=== PATIENT | female | born 1970 | race Caucasian/White ===

== ENCOUNTER 2019-05-06 10:05 | Outpatient (CLI) | payer MEDICAID | END 2019-05-06 10:06 | disposition home or self-care (01) | LOC: LAB 10:05 | PROVIDERS: ATTEND Internal Medicine Gastroenterology | DX: I48.0 Paroxysmal atrial fibrillation (principal) | CPT/HCPCS: 85610 ==

== ENCOUNTER 2019-05-14 21:10 | Emergency (ER) | payer MEDICAID ==
[2019-05-14] MEDS ORDERED: LIDOCAINE 1% 2 ML VIAL MC ONE (21:48)
[2019-05-14] MEDS ORDERED: cefTRIAXone 1 GM VIAL IM STA (21:48)
[2019-05-14] MEDS ORDERED: DEXAMETHASONE 10 MG/ML VIAL PO STA (21:48)
[2019-05-14] MEDS ORDERED: CHERRY SYRUP 10 ML UDC PO ONE (21:48)
--- NOTE | 2019-05-14 21:50 | ED Physician Documentation ---
PD HPI HEENT - Stated complaint Stated Complaint: SINUS ISSUES/BLOODY EARS - Chief complaint Chief Complaint: Heent - History obtained from History obtained from: Patient - History of Present Illness Timing - onset: How many days ago (4) Timing - duration: Days (4) Timing - details: Gradual onset, Still present Location: Right ear, Left ear, Sinuses, Nose Worsens: Swalllowing, Noise Associated symptoms: Fever, Congestion, Rhinorrhea, Headache, Cough Similar symptoms before: Has not had sx before Recently seen: Not recently seen - Additional information Additional information: 49-year-old female on Coumadin for antiphospholipid antibody syndrome has developed congestion cough ear pain ear drainage and chills beginning about 4 days ago. Review of Systems Constitutional: reports: Fever, Chills, Fatigue, Sweats Eyes: denies: Decreased vision Ears: reports: Ear pain, Drainage/discharge, Tinnitus/ringing Nose: reports: Rhinorrhea / runny nose, Congestion, Sinus pressure / pain Throat: denies: Sore throat Cardiac: denies: Chest pain / pressure, Palpitations Respiratory: reports: Cough. denies: Dyspnea GI: denies: Nausea, Vomiting : denies: Dysuria, Frequency Skin: denies: Rash Musculoskeletal: denies: Neck pain, Back pain, Extremity pain Neurologic: denies: Generalized weakness, Focal weakness, Numbness PD PAST MEDICAL HISTORY - Past Medical History Past Medical History: Yes Cardiovascular: Hypertension Neuro: CVA HEENT: Glaucoma Psych: Depression Musculoskeletal: Other Other Past Medical History: CVAx12 since 2000, antiphospholipid syndrome, DJD, arthritis, - Past Surgical History Past Surgical History: Yes General: Cholecystectomy Ortho: Other - Present Medications Home Medications: Ambulatory Orders Medication Instructions Recorded Confirmed Aspirin [Aspirin EC] 81 mg PO DAILY 04/24/19 04/24/19 Brimonidine Tartrate/Timolol 15 ml OP BID 04/24/19 04/24/19 [Combigan 0.2%-0.5% Eye Drops] Fluoxetine HCl [Prozac] 40 mg PO DAILY 04/24/19 04/24/19 Gabapentin [Neurontin] 800 mg PO TID 04/24/19 04/24/19 Labetalol [Trandate] 300 mg PO TID 04/24/19 04/24/19 RX: Cyclobenzaprine HCl 5 mg PO TID 04/24/19 04/24/19 RX: Lisinopril 20 mg PO DAILY 04/24/19 04/24/19 RX: cloNIDine HCl [Clonidine HCl] 0.2 mg PO DAILY 04/24/19 04/24/19 Warfarin [Coumadin] 2.5 mg PO DAILY PM 04/24/19 04/24/19 RX: Azithromycin [Zithromax] 250 mg PO DAILY #6 tablet 05/14/19 RX: Furosemide 20 mg PO DAILY 05/14/19 05/14/19 RX: Omeprazole 20 mg PO DAILY 05/14/19 05/14/19 - Allergies Allergies/Adverse Reactions: Allergies Allergy/AdvReac Type Severity Reaction Status Date / Time amitriptyline Allergy Anaphylaxis Verified 04/24/19 15:47 amlodipine Allergy Rash Verified 05/14/19 21:18 clindamycin Allergy Nausea Verified 05/14/19 21:18 diphenhydramine Allergy Anaphylaxis Verified 04/24/19 15:47 [From Benadryl] hydrochlorothiazide Allergy Anaphylaxis Verified 04/24/19 15:47 Penicillins Allergy Anaphylaxis Verified 04/24/19 15:47 - Social History Does the pt smoke?: No Smoking Status: Never smoker Does the pt drink ETOH?: No Does the pt have substance abuse?: No - Immunizations Immunizations are current?: Yes PD ED PE NORMAL - Vitals Vital signs reviewed: Yes (hypertensive) - General General: Alert and oriented X 3 (The patient is hard of hearing ), No acute distress, Well developed/nourished, Other - HEENT HEENT: Atraumatic, PERRL, EOMI, Ears normal (The right TM is not visible secondary to cerumen. There is drainage present. The left TM is partially visualized erythematous with no disernable landmarks and bubbly fluid drainage that is blood tinged. ), Pharynx benign, Dentition benign, Other (right maxillary sinus point tenderness ) - Neck Neck: Supple, no meningeal sign, No bony TTP - Cardiac Cardiac: RRR, No murmur - Respiratory Respiratory: No respiratory distress, Clear bilaterally - Abdomen Abdomen: Soft, Non tender - Back Back: No CVA TTP, No spinal TTP - Derm Derm: Normal color, Warm and dry, No rash - Extremities Extremities: No deformity, No edema - Neuro Neuro: Alert and oriented X 3, No motor deficit, No sensory deficit, Normal speech Eye Opening: Spontaneous Motor: Obeys Commands Verbal: Oriented GCS Score: 15 - Psych Psych: Normal mood, Normal affect Results - Vitals Vitals: Vital Signs - 24 hr 05/14/19 05/14/19 21:14 22:18 Temperature 36.9 C Heart Rate 86 78 Respiratory 18 18 Rate Blood Pressure 129/90 H 138/87 H O2 Saturation 96 99 Oxygen O2 Source Room air - Labs Labs: Laboratory Tests 05/14/19 21:44 Whole Blood INR 4.8 H* PD MEDICAL DECISION MAKING - ED course Complexity details: reviewed results, re-evaluated patient, considered differential, d/w patient ED course: 49-year-old female with a history of antiphospholipid antibody syndrome has developed cough congestion and drainage from both ears. On examination she appears to have ruptured both TMs and has right maxillary sinus point tenderness. She is also able to produce a phlegm that is brown in color and quite thick. She is not having difficulty with breathing. Her INR is elevated at 4.8. She is administered dexamethasone 10 mg orally and Rocephin 1 g IM as well as 500 mg of azithromycin. We will put her on a course of a azithromycin and have her follow-up with ENT. She will stop her Coumadin for the next 2 days. Departure - Departure Disposition: 01 Home, Self Care Clinical Impression: Otitis media, Sinusitis Condition: Stable Instructions: ED Otitis Media Acute Adult, ED Rupture Eardrum Infec, ED Sinusitis Abx Tx Follow-Up: [facility] [Provider Group] Prescriptions: RX: Azithromycin [Zithromax] 250 mg PO DAILY #6 tablet Comments: Today your INR is elevated at 4.8 the recommendation is to discontinue it for 2 days and have your INR rechecked before restarting. Because you are on a course of antibiotic you will need to have your INR rechecked. Discharge Date/Time: 05/14/19 22:45
[2019-05-14] MEDS ORDERED: AZITHROMYCIN 250 MG TABLET PO STA (22:01)
[2019-05-14 22:19] VITALS: BP 138/87
== END 2019-05-14 22:45 | disposition home or self-care (01) ==
LOC: ED 21:10
DX: H65.93 Unspecified nonsuppurative otitis media, bilateral (principal); H72.93 Unspecified perforation of tympanic membrane, bilateral; J32.9 Chronic sinusitis, unspecified; D68.61 Antiphospholipid syndrome; I10 Essential (primary) hypertension; F32.9 Major depressive disorder, single episode, unspecified; H40.9 Unspecified glaucoma; M19.90 Unspecified osteoarthritis, unspecified site; Z86.73 Personal history of transient ischemic attack (TIA), and cerebral infarction without residual deficits; Z79.82 Long term (current) use of aspirin; Z79.891 Long term (current) use of opiate analgesic; Z79.899 Other long term (current) drug therapy
CPT/HCPCS: 85610; 96372; 99283; A9270

== ENCOUNTER 2019-05-16 09:00 | Outpatient (CLI) | payer MEDICAID | END 2019-05-16 23:59 | disposition home or self-care (01) | LOC: LAB 09:00 | DX: I48.91 Unspecified atrial fibrillation (principal) | CPT/HCPCS: 85610 ==

== ENCOUNTER 2019-05-21 09:31 | Outpatient (CLI) | payer MEDICAID | END 2019-05-21 09:32 | disposition home or self-care (01) | LOC: LAB 09:31 | DX: I48.0 Paroxysmal atrial fibrillation (principal) | CPT/HCPCS: 85610 ==

== ENCOUNTER 2019-06-03 14:41 | Outpatient (CLI) | payer MEDICAID | END 2019-06-03 14:42 | disposition home or self-care (01) | LOC: LAB 14:41 | PROVIDERS: ATTEND Family Medicine | DX: I48.0 Paroxysmal atrial fibrillation (principal) | CPT/HCPCS: 85610 ==

== ENCOUNTER 2019-07-30 09:18 | Outpatient (CLI) | payer MEDICAID | END 2019-07-30 09:19 | disposition home or self-care (01) | LOC: LAB 09:18 | PROVIDERS: ATTEND Family Medicine | DX: I48.0 Paroxysmal atrial fibrillation (principal) | CPT/HCPCS: 85610 ==

== ENCOUNTER 2019-09-06 10:01 | Outpatient (CLI) | payer MEDICAID | END 2019-09-06 10:02 | disposition home or self-care (01) | LOC: LAB 10:01 | PROVIDERS: ATTEND Family Medicine | DX: I48.0 Paroxysmal atrial fibrillation (principal) | CPT/HCPCS: 85610 ==

== ENCOUNTER 2019-09-19 08:58 | Outpatient (CLI) | payer MEDICAID | END 2019-09-19 08:59 | disposition home or self-care (01) | LOC: LAB 08:58 | PROVIDERS: ATTEND Family Medicine | DX: I48.0 Paroxysmal atrial fibrillation (principal) | CPT/HCPCS: 85610 ==

== ENCOUNTER 2019-09-25 14:28 | Outpatient (CLI) | payer MEDICAID | END 2019-09-25 14:29 | disposition critical access hospital (66) | LOC: EMS 14:28 | PROVIDERS: ATTEND Surgery | DX: R53.1 Weakness (principal); R29.810 Facial weakness; R47.81 Slurred speech | CPT/HCPCS: A0425; A0429; A0999 ==

== ENCOUNTER 2019-09-25 14:48 | Observation (INO) | payer MEDICAID ==
[2019-09-25] MEDS ORDERED: IOVERSOL 320 100 ML VIAL IVP ONE ×2 (15:41→15:56)
[2019-09-25 15:44] LABS: BASOPHILS # (AUTO) 0.1 10^3/uL (0.0-0.1); BASOPHILS % (AUTO) 0.7 %; EOSINOPHILS # (AUTO) 0.3 10^3/uL (0.0-0.7); EOSINOPHILS % (AUTO) 2.2 %; HGB - HEMOGLOBIN 13.7 g/dL (12.0-16.0); LYMPHOCYTES # (AUTO) 4.5 10^3/uL (1.5-3.5); LYMPHOCYTES % (AUTO) 37.7 %; MEAN CORPUSCULAR HEMOGLOBIN 29.1 pg (27.0-31.0); MEAN CORPUSCULAR HGB CONC 33.4 g/dL (32.0-36.0); MEAN CORPUSCULAR VOLUME 87.2 fL (81.0-99.0); MEAN PLATELET VOLUME 9.5 fL (7.9-10.8); MONOCYTES % (AUTO) 8.1 %; NEUTROPHILS # (AUTO) 6.1 10^3/uL (1.5-6.6); PLT - PLATELET COUNT 305 10^3/uL (130-450); RED CELL DISTRIBUTION WIDTH 13.6 % (12.0-15.0)
[2019-09-25] MEDS ORDERED: cloNIDine 0.1 MG TABLET PO STA (15:53)
[2019-09-25 15:55] LABS: ALBUMIN 4.5 g/dL (3.2-5.5); ALBUMIN/GLOBULIN RATIO 1.6 (1.0-2.2); ALKALINE PHOSPHATASE 136 IU/L (42-121); ALT ALANINE AMINOTRANSFERASE 43 IU/L (10-60); AST ASPARTATE AMINOTRANSFERASE 36 IU/L (10-42); BUN - BLOOD UREA NITROGEN 22 mg/dL (6-20); CARBON DIOXIDE - CO2 27 mmol/L (21-32); CHLORIDE 102 mmol/L (101-111); GFR - MDRD 58 (>89); GLUCOSE 97 mg/dL (70-100); INR 2.5 (0.8-1.2); LIPASE 37 U/L (22-51); PT - PROTHROMBIN TIME 27.2 secs (9.9-12.6); SODIUM 137 mmol/L (135-145); TOTAL PROTEIN 7.4 g/dL (6.7-8.2)
[2019-09-25] MEDS ORDERED: SODIUM CHLORIDE 0.9% 1,000 ML IV ONE ×2 (15:55→17:14)
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
[2019-09-25] MEDS ORDERED: LORazepam 2 MG/ML VIAL IVP STA (15:59)
--- NOTE | 2019-09-25 16:27 | CT Report ---
Reason: right facial droop speech and right sided weakness Procedure Date: 09/25/2019 Accession Number: [id number] / [id number] Procedure: CT - ANGIO NECK W CPT Code: FULL RESULT: CT ANGIOGRAM NECK EXAM DATE: 09/25/2019. Indication: 49-year-old female with right facial droop, right-sided weakness and speech difficulty. The patient has a reported history of 12 prior strokes. TECHNIQUE: 80 cc of Optiray 320 contrast were injected at a rapid rate through a large-bore, left antecubital intravenous catheter. The neck was scanned helically during arterial phase. The data was reconstructed into 0.5 mm axial images. In addition, MIP reconstructions have been generated in multiple projections to allow better assessment of the extracranial carotid and vertebral arteries. Significant arterial stenoses will be assessed using NASCET type measurements. In accordance with CT protocol optimization, one or more of the following dose reduction techniques were utilized for this exam: automated exposure control, adjustment of mA and/or KV based on patient size, or use of iterative reconstructive technique. COMPARISON: None. FINDINGS: There is normal branching of the aortic arch. No stenoses are demonstrated in the first-order, supra-aortic arteries. Right carotid artery: There is minimal calcified plaque at the carotid bifurcation and in the carotid bulb without associated stenosis. Noted is elongation and tortuosity of the extracranial ICA. Left carotid artery: Widely patent throughout. Noted is elongation and tortuosity of the extracranial ICA with prominent, right angle curve in the proximal cervical segment. Right vertebral artery: Patent from origin to distal V3 segment. Beam-hardening artifact from dense contrast in the surrounding venous structures limits assessment of the V2 and V3 segments; however, grossly no pathology is demonstrated. Left vertebral artery: Patent at origin. Portions of the V1 segment are partially obscured due to beam-hardening artifact from dense contrast and surrounding venous structures. Grossly no pathology is demonstrated. The V2 segment is patent throughout. The V3 segment is partially obscured due to beam-hardening artifact from dense contrast in surrounding venous structures. Grossly no pathology is demonstrated. IMPRESSION: 1. The extracranial carotid arteries appear widely patent throughout. 2. Significant portions of the extracranial vertebral arteries are partially obscured due to beam-hardening artifact from dense contrast in surrounding venous structures. However, grossly no dissection or significant stenosis is identified in either vertebral artery.
--- NOTE | 2019-09-25 16:30 | CT Report ---
Reason: R facial droop, speech and r weakness Procedure Date: 09/25/2019 Accession Number: [id number] / [id number] Procedure: CT - ANGIO HEAD W/WO CPT Code: FULL RESULT: CT HEAD WITHOUT AND WITH CONTRAST AND CT ANGIOGRAM HEAD INDICATION: 49-year-old female. Right facial droop, speech difficulty and right-sided weakness. Has reported history of 12 prior strokes. TECHNIQUE: Head CT Sequential 5 mm axial images were obtained through the brain prior to and following the CT angiogram: CT Angiogram Head: 80 mL of Optiray 320 contrast were injected at a rapid rate through a large bore, antecubital intravenous catheter. The head was scanned helically during arterial phase. The data was reconstructed into a 0.5 mm axial images. In addition, MIP reconstructions have been generated in multiple projections to allow better assessment of the intracranial arteries. In accordance with CT protocol optimization, one or more of the following dose reduction techniques were utilized for this exam: automated exposure control, adjustment of mA and/or KV based on patient size, or use of iterative reconstructive technique. COMPARISON: None. FINDINGS: Head CT: There is mild generalized prominence of the cerebral cortical sulci and third and lateral ventricles. No hydrocephalus. Well-defined encephalomalacia is identified in the cortex of the left insula and in the adjacent, perisylvian left posterior frontal/anterior parietal lobe. There is extensive noise (quantum mottle artifact on brain window images that decreases the sensitivity for detection of subtle parenchymal abnormality such as acute ischemic infarction. Grossly attenuation of cortex and white matter is otherwise unremarkable. There is no intracranial hemorrhage or abnormal extraaxial fluid collection. No mass effect or midline shift. No enhancing space occupying mass lesion is demonstrated. There appears to be normal intravascular contrast enhancement in the dural venous sinuses and deep venous structures. There is a moderate-sized left mastoid effusion with a small right mastoid effusion. No bone destruction is identified in either mastoid. In addition, no soft tissue swelling is seen overlying either mastoid. The imaged paranasal sinuses are essentially clear. Noted is bilateral exophthalmus of uncertain etiology. No intraorbital mass lesion is identified. CT Angiogram Head: Anterior Circulation: There is calcified plaque, scattered throughout the carotid siphons bilaterally without significant associated ICA stenosis. No definite ICA aneurysm is identified. There is a wide-necked conical outpouching arising from the undersurface of the supraclinoid left ICA. The neck appears to measure about 2.4 mm and the lesion points inferiorly for roughly 2.6 mm. This probably represents an infundibulum rather than an aneurysm at the origin of the left posterior communicating artery. On axial source images, it is difficult but I believe I can trace the artery down to the apex of this outpouching. The A1 segments of the anterior cerebral arteries are codominant. No definite anterior communicating artery is demonstrated. There appears to be good filling of the A2 and distal ERYN branches bilaterally. No obvious ERYN branch occlusion is demonstrated. The middle cerebral arteries are unremarkable. No aneurysm is demonstrated and there is no obvious occlusion or hemodynamically significant stenosis affecting main branches of either MCA. Extensive tortuosity in sylvian branches of the left MCA makes assessment somewhat challenging. Posterior Circulation: The left vertebral artery is mildly hypoplastic but patent. There is filling of the left PICA. There is minimal calcified plaque in dominant right vertebral artery without associated stenosis. No right PICA is identified. The right PICA territory may be supplied by the ipsilateral AICA or contralateral PICA (normal anatomical variants). The basilar artery, superior cerebellar arteries and main branches of the posterior cerebral arteries appear widely patent. There is a small left posterior communicating artery. Right posterior communicator is identified. No aneurysms are seen arising from the basilar artery trunk or apex. IMPRESSION: Head CT: Well-defined areas of encephalomalacia are seen in the left insula and in the perisylvian and left posterior frontal/anterior parietal lobe, consistent with the sequela of remote infarction in the left MCA territory. No obvious acute intracranial pathology is demonstrated. In particular, there is no intracranial hemorrhage and no obvious changes of an acute, large vessel territory cortical infarction demonstrated (appears to equal 10 bilaterally). However, it should be noted that early and small infarctions can be missed on CT. Therefore, consider further evaluation with MRI as clinically warranted. CT Angiogram Head: 1. Small, wide-necked conical outpouching arising from the undersurface of the supraclinoid left ICA likely represents an infundibulum rather than an aneurysm at the posterior communicating artery origin (see discussion above). 2. There is calcified plaque scattered throughout the carotid siphons without significant associated ICA stenosis. 3. Otherwise unremarkable CT angiogram. In particular, there is no obvious occlusion or hemodynamically significant stenosis affecting the main branches of the anterior or posterior circulations. The critical test notification system was initiated by Dr. Neptali Bobby at 04:08 PM on 09/25/2019. The above critical test findings were discussed with Dr. Eamon Babb by Dr. Neptali Bobby at 04:12 PM on 09/25/2019.
[2019-09-25 17:02] LABS: BILIRUBIN,URINE NEGATIVE (NEGATIVE); CLARITY,URINE CLEAR (CLEAR); GLUCOSE, URINE (UA) NEGATIVE (NEGATIVE); KETONES,URINE (UA) NEGATIVE (NEGATIVE); LEUKOCYTE ESTERASE, URINE NEGATIVE (NEGATIVE); NITRITE,URINE NEGATIVE (NEGATIVE); OCCULT BLOOD,URINE TRACE-INTA (NEGATIVE); PROTEIN,URINE NEGATIVE (NEGATIVE); UROBILINOGEN,URINE 0.2 (NORMAL) E.U./dL (NORMAL)
[2019-09-25] MEDS ORDERED: SODIUM CHLORIDE FLUSH 0.9% 10 ML SYRINGE IVP PRN (17:03)
[2019-09-25] MEDS ORDERED: LABETALOL 20 MG/4 ML SYRINGE IVP PRN ×2 (17:05→17:25)
--- NOTE | 2019-09-25 17:34 | HISTORY & PHYSICAL EXAMINATION ---
Chief Complaint - Chief Complaint Chief Complaint: right side weakness and dysarthric speech History of Present Illness - History of Present Illness HPI Comment/Other: Ms. Adler is a 49-year-old female with a PMH significant for antiphospholipid antibody syndrome, previous CVA, HTN, depression, who present ER complain of right side weakness, and dysarthric speech. pt report her symptomst started at 1300 today. She complain of right side weakness, right side of numbness, garbled speech and right facial droop. pt was reported her symptoms was gradually better. she report she had episode like this happened to her on October 2017. she report her symptoms recovered rapidly before but she report she had incidences which was taken much longer time for her to be recovered for. Pt report she always has the right side issue when the weakness happened before. Pt denies chest pain, fever, chill, shortness of breath, headache, vision change, abdominal pain, nausea, vomiting, dysuria, hematuria. The Call was made by ER to [place] neurologist, and recommended pt was not the candidate for TPA, due to pt is using Coumadin with INR 2.5, and had significant HTN. CTA of head and neck does reveals unremarkable for acute finding. pt was admitted for above medical condition in observation unit. History - Past Medical History Cardiovascular: reports: Hypertension Neuro: reports: CVA HEENT: reports: Glaucoma Psych: reports: Depression Musculoskeletal: reports: Other MRSA Hx?: No - Past Surgical History General: reports: Cholecystectomy Ortho: reports: Other - Family & Social History Family History: Mother: Alive and Well, CVA/TIA, Hypertension, Seizure Disorder, Father: Alive and Well Family History Comment/Other: pt report per parents are both living, her mother has CVA, HTN and seizure problem, her father is health as far. Social History Notes: pt report she is on diability, she is currently visiting her sister in [facility]. she denies cigarett smoker, alcohol and drug issue - POLST POLST Status: Full Code Meds/Allgy - Home Medications Home Medications: Ambulatory Orders Medication Instructions Recorded Confirmed Aspirin [Aspirin EC] 81 mg PO DAILY 04/24/19 07/17/19 Brimonidine Tartrate/Timolol 15 ml OP BID 04/24/19 07/17/19 [Combigan 0.2%-0.5% Eye Drops] Cyclobenzaprine HCl 5 mg PO TID 04/24/19 07/17/19 Fluoxetine HCl [Prozac] 40 mg PO DAILY 04/24/19 07/17/19 Gabapentin [Neurontin] 800 mg PO TID 04/24/19 07/17/19 Labetalol [Trandate] 300 mg PO TID 04/24/19 07/17/19 Lisinopril 20 mg PO DAILY 04/24/19 07/17/19 Warfarin [Coumadin] 2.5 mg PO DAILY PM 04/24/19 07/17/19 cloNIDine HCl [Clonidine HCl] 0.2 mg PO DAILY 04/24/19 07/17/19 Furosemide 20 mg PO DAILY 05/14/19 07/17/19 - Allergies Allergies/Adverse Reactions: Allergies Allergy/AdvReac Type Severity Reaction Status Date / Time amitriptyline Allergy Anaphylaxis Verified 07/17/19 15:37 amlodipine Allergy Rash Verified 07/17/19 15:37 clindamycin Allergy Nausea Verified 07/17/19 15:37 diphenhydramine Allergy Anaphylaxis Verified 07/17/19 15:37 [From Benadryl] hydrochlorothiazide Allergy Anaphylaxis Verified 07/17/19 15:37 Penicillins Allergy Anaphylaxis Verified 07/17/19 15:37 Review of Systems - Constitutional Constitutional: denies: Fatigue, Fever, Chills, Malaise, Weakness, Poor appetite, Diaphoresis, Night sweats, Weight gain, Weight loss - Eyes Eyes: denies: Pain, Irritation, Blurred vision, Spots in vision, Field loss, Vision loss, Dipolpia - Ears, Nose & Throat Ears, Nose & Throat: denies: Ear pain, Hearing loss, Hearing aids, Tinnitus, Vertigo, Nasal pain, Nasal discharge, Nosebleeds, Nasal obstruction, Nasal congestion, Dentures, Sore throat, Mouth lesions, Bleeding gums - Cardiovascular Cariovascular: denies: Irregular heart rate, Palpitations, Chest pain, Edema, Lightheadedness, Syncope, Exertional dyspnea, Decr. exercise tolerance, Orthopnea - Respiratory Respiratory: denies: Cough, Sputum production, Wheezing, Snoring, Hemoptysis, Orthopnea, SOB at rest, SOB with exertion, Apnea - Gastrointestinal Gastrointestinal: denies: Abdominal pain, Abdominal distention, Constipation, Diarrhea, Change in bowel habits, Rectal bleeding, Black stools, Bloody stools, Nausea, Vomiting, Bile emesis, Jose blood emesis, Coffee grounds emesis - Genitourinary Genitourinary: denies: Dysuria, Frequency, Urgency, Hematuria, Incontinence, Flank pain, Nocturia, Urethral discharge - Musculoskeletal Musculoskeletal: denies: Muscle pain, Back pain, Muscle aches, Stiffness, Limited range of motion, Muscle weakness, Gout, Joint pain - Integumentary Integumentary: denies: Rash, Pruritis, Lesions, Dryness, Acne - Neurological Neurological: reports: Focal weakness, Numbness, Pre-existing deficit, Abnormal gait, Slurred speech. denies: General weakness, Headache, Dizziness, Memory problems, Seizures, Incoordination - Psychiatric Psychiatric: denies: Depression, Anxiety, Suicidal, Delusions, Hallucinations, Homicidal - Endocrine Endocrine: denies: Polyuria, Polydypsia, Polyphagia, Intolerance to cold - Hematologic/Lymphatic Hematologic/Lymphatic: denies: Anemia, Bruising, Petechiae, Blood clots, Lymphadenopathy, Bleeding tendencies Exam - Vital Signs Reviewed Vital Signs: Yes Vital Signs: Vital Signs x48h Temp Pulse Resp BP Pulse Ox 09/25/19 17:04 66 18 173/107 H 98 09/25/19 16:49 63 14 195/113 H 97 09/25/19 16:32 63 14 197/116 H 100 09/25/19 16:05 62 16 220/128 H 97 09/25/19 15:52 66 14 231/126 H 97 09/25/19 15:37 66 18 199/120 H 95 09/25/19 14:48 36.6 C 63 20 199/120 H 97 - Physical Exam General Appearance: positive: No acute distress, Alert. negative: Lethargic Eyes Bilateral: positive: Normal inspection, PERRL, No lid inflammation ENT: positive: ENT inspection nml, No signs of dehydration. negative: Purulent nasal drainage Neck: positive: Nml inspection, Thyroid nml, No JVD, Trachea midline. negative: Thyromegaly, Lymphadenopathy (R), Lymphadenopathy (L), Stiff neck, Tracheal deviation Respiratory: positive: Chest non-tender, No respiratory distress, Breath sounds nml. negative: Wheezes, Rales, Rhonchi Cardiovascular: positive: Regular rate & rhythm, No murmur, No gallop. negativ e: Irregularly irregular, Extrasystoles, Tachycardia, Bradycardia, JVD present, Systolic murmur, Diastolic murmur Peripheral Pulses: positive: 2+ Abdomen: positive: Non-tender, No organomegaly, Nml bowel sounds, No distention. negative: Tenderness, Guarding, Rebound Back: positive: Nml inspection. negative: CVA tenderness (R), CVA tenderness (L) Skin: positive: Color nml, No rash, Warm, Dry. negative: Cyanosis, Diaphoresis, Pallor Extremities: positive: Non-tender, Nml appearance. negative: Full ROM, Calf tenderness, Rajiv's sign/cords Neurologic/Psychiatric: positive: Oriented x3, Mood/affect nml, Weakness. negative: Motor nml, Disoriented to person, Disoriented to place, Disoriented to time, Sensory loss, Facial droop, Slurred/abnml speech, Depressed mood/affect Sepsis Event Note (H) - Evaluation Current Stage of Sepsis: Ruled out Conclusion/Plan - Problem List (1) Stroke-like symptoms Conclusion/Plan: pt report she had similar symptoms, right side weakness, numbness before, but resolved by its own. CTA of head reveals unremarkable CT angiogram. [place] neurologist was consulted, they believe pt might have symptoms from combination with elevated BP, dehydration, plus distress, and previous remote CVA. plan: MRI of brain, ECHO, continue home Coumadin, tele/vital monitor, keep hydration, allow elevation of BP until SBP 180 then PRN BP meds, consult with PT, on observation unit. (2) Hypertensive urgency Conclusion/Plan: pt's BP was upto 230/120, pt had significant hx of HTN. it likely from pt did not take her daily meds on yesterday when she has been on hospital, plus distress. plan: allow her SBP elevated to 180, then PRN Laterolol. after pharmacy verified home meds, will resume home meds tomorrow. vital monitor (3) Antiphospholipid antibody syndrome Conclusion/Plan: pt has hx of antiphospholipid antibody syndrome. pt is on Coumadin. plan: continue Coumadin, check PT/INR daily (4) Depression Conclusion/Plan: stable, continue Prozac (5) History of CVA (cerebrovascular accident) Conclusion/Plan: pt report she has some right side weakness residence. continue BP control, continue Coumadin, PT is consult (6) Full code status Conclusion/Plan: pt request full code - Lab Results Fish Bones: 09/26/19 05:40 09/26/19 05:40 Core Measures - Anticipated LOS I expect patient to be DC'd or transferred within 96 hours.: Yes - DVT/VTE - Prophylaxis VTE/DVT Device ordered at admit?: Yes VTE/DVT Prophylaxis med ordered at admit?: Yes
--- NOTE | 2019-09-25 19:55 | MRI Report ---
Reason: right body weak, hx of L MCA stroke Procedure Date: 09/25/2019 Accession Number: [id number] / [id number] Procedure: MRI - Brain W/O CPT Code: FULL RESULT: MRI BRAIN WITHOUT CONTRAST INDICATION: 49-year-old female with right body weakness. History of previous left MCA stroke. TECHNIQUE: 1. T1 sagittal and fat saturated T2 coronal. 2. Axial T1 3D MP-RAGE, FLAIR, T2, T2* and DWI. COMPARISON: Head CT and CT angiogram 09/25/2019. FINDINGS: As demonstrated on recent head CT focal areas of encephalomalacia are demonstrated in the left cerebral hemisphere, consistent with the sequela of remote infarction in the left MCA territory. Involvement includes the left insula and the perisylvian left posterior frontal and probably anterior parietal lobes. The axial T2 FLAIR sequence is degraded by artifact. There is a confluent region of T2/FLAIR hyperintensity in the periventricular and deep white matter of the anterior left frontal lobe, likely the sequela of remote ischemic injury. In addition, there is minor, patchy T2 hyperintensity in the periventricular and deep white matter of the bilateral parietal lobes, likely representing chronic microangiopathy. Grossly, the signal intensity of cortex and white matter is otherwise normal. There appear to be flow voids for the main intracranial arteries. No abnormal diffusion restriction is demonstrated. There is no evidence of acute or chronic hemorrhage on the T2*GRE sequence. No abnormal extra-axial fluid collection. No mass effect or shift. Limited evaluation of the orbits reveals no gross pathology. There is mild mucosal thickening scattered throughout the ethmoid air cells. The paranasal sinuses are otherwise clear. Fluid is identified in the mastoid air cells bilaterally of uncertain etiology. No soft tissue swelling is identified overlying either mastoid to confirm active infection. In addition, there is no evidence of an obstructing nasopharyngeal mass. Marrow signal intensity in the regional skeletal structures is unremarkable. IMPRESSION: 1. Encephalomalacia is identified in the left cerebral hemisphere, consistent with the sequela of remote infarction in the left MCA territory. 2. A very mild amount of white matter disease is identified in the supratentorial brain, likely representing chronic microangiopathy. 3. No acute intracranial pathology is demonstrated. In particular there is no evidence of acute infarction on diffusion-weighted imaging.
[2019-09-25] MEDS: SODIUM CHLORIDE 0.9% 1,000 ML IV SCH (20:43)
[2019-09-25] MEDS: ACETAMINOPHEN 325 MG TABLET PO PRN (21:08)
[2019-09-26] MEDS ORDERED: SODIUM CHLORIDE FLUSH 0.9% 10 ML SYRINGE IVP PRN (05:05)
[2019-09-26] MEDS: ACETAMINOPHEN 325 MG TABLET PO PRN (05:28)
[2019-09-26] MEDS: SODIUM CHLORIDE 0.9% 1,000 ML IV SCH ×2 (05:30→16:39)
[2019-09-26 06:00] LABS: BASOPHILS # (AUTO) 0.1 10^3/uL (0.0-0.1); BASOPHILS % (AUTO) 0.7 %; EOSINOPHILS # (AUTO) 0.3 10^3/uL (0.0-0.7); EOSINOPHILS % (AUTO) 2.8 %; HGB - HEMOGLOBIN 13.3 g/dL (12.0-16.0); LYMPHOCYTES # (AUTO) 3.7 10^3/uL (1.5-3.5); LYMPHOCYTES % (AUTO) 37.5 %; MEAN CORPUSCULAR HEMOGLOBIN 29.2 pg (27.0-31.0); MEAN CORPUSCULAR HGB CONC 33.4 g/dL (32.0-36.0); MEAN CORPUSCULAR VOLUME 87.5 fL (81.0-99.0); MEAN PLATELET VOLUME 9.7 fL (7.9-10.8); MONOCYTES # (AUTO) 0.8 10^3/uL (0.0-1.0); MONOCYTES % (AUTO) 8.5 %; NEUTROPHILS % (AUTO) 50.2 %; PLT - PLATELET COUNT 294 10^3/uL (130-450); RED BLOOD COUNT 4.55 10^6/uL (4.20-5.40); RED CELL DISTRIBUTION WIDTH 13.8 % (12.0-15.0); WHITE BLOOD COUNT 9.9 x10^3/uL (4.8-10.8)
[2019-09-26 06:09] LABS: CALCIUM 8.6 mg/dL (8.5-10.3); CREATININE 0.8 mg/dL (0.4-1.0)
[2019-09-26 06:17] LABS: INR 2.1 (0.8-1.2); PT - PROTHROMBIN TIME 23.3 secs (9.9-12.6)
[2019-09-26] MEDS: SODIUM CHLORIDE FLUSH 0.9% 10 ML SYRINGE IVP SCH ×3 (07:02→17:25)
[2019-09-26] MEDS: POLYETHYLENE GLYCOL 3350 17 GM PACKET PO SCH (08:46)
[2019-09-26] MEDS ORDERED: FLUoxetine 10 MG CAPSULE PO SCH (09:00)
[2019-09-26] MEDS ORDERED: hydrALAZINE INJ 20 MG/ML VIAL IVP PRN (14:35)
[2019-09-26] MEDS ORDERED: LABETALOL 100 MG TABLET PO SCH (15:00)
[2019-09-26] MEDS: WARFARIN 2.5 MG TABLET PO SCH (15:10)
[2019-09-26] MEDS ORDERED: LORazepam 2 MG/ML VIAL IVP STA (15:37)
[2019-09-26] MEDS ORDERED: ONDANSETRON 4 MG/2 ML VIAL IVP PRN (15:38)
[2019-09-26] MEDS ORDERED: ONDANSETRON ODT 4 MG TABLET PO PRN (15:44)
--- NOTE | 2019-09-26 16:09 | PROVIDER PROGRESS NOTE ---
Assessment/Plan - Problem List (1) Stroke-like symptoms Assessment/Plan: 09/26 pt continue present right side weakness, very sensitive on the touch, very difficult to move her right lower extremity, although her MRI of brain reveals unremarkable for acute findings, ECHO is unremarkable. continue PT/OT continue control of her BP continue tele and vital monitor pt report she had similar symptoms, right side weakness, numbness before, but resolved by its own. CTA of head reveals unremarkable CT angiogram. [place] neurologist was consulted, they believe pt might have symptoms from combination with elevated BP, dehydration, plus distress, and previous remote CVA. plan: MRI of brain, ECHO, continue home Coumadin, tele/vital monitor, keep hydration, allow elevation of BP until SBP 180 then PRN BP meds, consult with PT, on observation unit. (2) Hypertensive urgency Conclusion/Plan: 09/26, pt state her BP has been difficult to be controlled, now her BP is 185/118. pharmacy can not verify pt's meds until later this afternoon. reconcile pt's home BP meds, continue vital monitor continue Laterolol PRN pt's BP was upto 230/120, pt had significant hx of HTN. it likely from pt did not take her daily meds on yesterday when she has been on hospital, plus d istress. plan: allow her SBP elevated to 180, then PRN Laterolol. after pharmacy verified home meds, will resume home meds tomorrow. vital monitor (3) complex seizure-like symptom 09/26 pt present TMJ joint lock and difficult to open her mouth, even for her medications. pt's sister report pt present this symptoms when she was at ER. after ER gave pt Ativan, her symptoms was released. pt's sister also report pt's mother has the similar symptom, and was diagnosis for complex like-seizure. order once IV of 1 mg ativan, and PRN. it can be caused by withdrawal for benzodiazepine continue neuro check (4) Antiphospholipid antibody syndrome Conclusion/Plan: pt has hx of antiphospholipid antibody syndrome. pt is on Coumadin. plan: continue Coumadin, check PT/INR daily (5) Depression Conclusion/Plan: stable, continue Prozac (6) History of CVA (cerebrovascular accident) Conclusion/Plan: pt report she has some right side weakness residence. continue BP control, continue Coumadin, PT is consult - Current Meds Current Meds: Current Medications Generic Name Dose Route Start Last Admin Trade Name Freq PRN Reason Stop Dose Admin Acetaminophen 650 mg 09/25/19 20:50 09/26/19 05:28 Tylenol PO 650 mg Q4HR PRN Administration Pain or Fever > 38C (100.4F) Ondansetron HCl 4 mg 09/26/19 15:44 09/26/19 15:59 Zofran Odt PO 4 mg Q4H PRN Administration Nausea / Vomiting Polyethylene Glycol 17 gm 09/26/19 09:00 09/26/19 08:46 Miralax PO Not Given DAILY JUAN Sodium Chloride 10 ml 09/25/19 17:03 09/25/19 21:09 Normal Saline Flush 0.9% IVP 10 ml PRN PRN Administration NEEDED PER PROVIDER ORDERS Sodium Chloride 10 ml 09/26/19 01:00 09/26/19 08:45 Normal Saline Flush 0.9% IVP Not Given 0100,0900,1700 JUAN Warfarin Sodium 2.5 mg 09/26/19 14:00 09/26/19 15:10 Coumadin PO 2.5 mg QDWARFARIN JUAN Administration - Lab Result Fish Bone Diagrams: 09/26/19 05:40 09/26/19 05:40 - Additional Planning My Orders: My Active Orders 09/25/19 17:25 Labetalol Syringe [Trandate Syringe] 10 mg IVP Q10M PRN 09/25/19 17:29 Echo Transthoracic Complete [ECHO] Stat 09/26/19 Home Health Referral [CONS] Routine 09/26/19 14:42 Labetalol [Trandate] 600 mg PO TID 09/26/19 15:44 Ondansetron Odt [Zofran Odt] 4 mg PO Q4H PRN 09/26/19 16:00 Gabapentin [Neurontin] 800 mg PO TID Sodium Chloride 0.9% [Normal Saline 0.9%] 1,000 ml IV 83.333 mls/hr 09/26/19 21:00 Aspirin EC [Ecotrin] 81 mg PO QPM Brimonidine Tartrate/Timolol [Combigan 0.2%-0.5% Eye Drops] 1 drops EACHEYE BID Clonidine HCl [Clonidine HCl ER] 0.1 mg PO QPM Lisinopril [Zestril] 30 mg PO QPM Omeprazole [Omeprazole] 20 mg PO QPM 09/26/19 22:00 Cyclobenzaprine [Flexeril] 5 mg PO TID 09/27/19 05:00 BMP - BASIC METABOLIC PANEL [CHEM] DAILYLAB 09/27/19 09:00 FLUoxetine [PROzac] 40 mg PO DAILY 09/28/19 05:00 BMP - BASIC METABOLIC PANEL [CHEM] DAILYLAB 09/29/19 05:00 BMP - BASIC METABOLIC PANEL [CHEM] DAILYLAB Objective Vital Signs: Vital Signs - 24 hr 09/25/19 09/25/19 09/25/19 16:32 16:49 17:04 Temperature Heart Rate 63 63 66 Heart Rate [ Activity] Heart Rate [ Brachial] Heart Rate [ Sitting] Heart Rate [ Supine] Respiratory 14 14 18 Rate Blood Pressure 197/116 H 195/113 H 173/107 H Blood Pressure [Activity] Blood Pressure [Left Brachial artery] Blood Pressure [Right Brachial artery] Blood Pressure [Sitting] Blood Pressure [Supine] O2 Saturation 100 97 98 09/25/19 09/25/19 09/25/19 17:42 19:53 20:10 Temperature 36.5 C 36.8 C 36.8 C Heart Rate 70 90 Heart Rate [ Activity] Heart Rate [ 62 Brachial] Heart Rate [ Sitting] Heart Rate [ Supine] Respiratory 16 18 18 Rate Blood Pressure 179/112 H Blood Pressure [Activity] Blood Pressure [Left Brachial artery] Blood Pressure 152/112 H [Right Brachial artery] Blood Pressure [Sitting] Blood Pressure [Supine] O2 Saturation 98 100 100 09/25/19 09/26/19 09/26/19 23:55 05:00 06:52 Temperature 36.4 C L 36.5 C Heart Rate Heart Rate [ Activity] Heart Rate [ 60 62 60 Brachial] Heart Rate [ Sitting] Heart Rate [ Supine] Respiratory 16 16 Rate Blood Pressure Blood Pressure [Activity] Blood Pressure 169/105 H 167/100 H [Left Brachial artery] Blood Pressure 160/94 H [Right Brachial artery] Blood Pressure [Sitting] Blood Pressure [Supine] O2 Saturation 98 97 09/26/19 09/26/19 08:00 10:05 Temperature 36.7 C Heart Rate Heart Rate [ 79 Activity] Heart Rate [ 73 Brachial] Heart Rate [ 75 Sitting] Heart Rate [ 70 Supine] Respiratory 18 Rate Blood Pressure Blood Pressure 185/118 H [Activity] Blood Pressure 141/91 H [Left Brachial artery] Blood Pressure [Right Brachial artery] Blood Pressure 179/109 H [Sitting] Blood Pressure 155/119 H [Supine] O2 Saturation 96 Oxygen O2 Source Room air I&O (Last 24 Hrs): Intake and Output Totals x24h 09/24/19 09/25/19 09/26/19 23:59 23:59 23:59 Intake Total 2083.333 2600 Output Total 600 1350 Balance 1484.844 1175 General: Alert, Mild distress HEENT: Atraumatic Neck: Supple Lymphatic: no adenopathy Neuro: Alert, Oriented Times 3 Cardiovascular: Regular rate Respiratory: Chest non-tender, No respiratory distress, Breath sounds nml Abdomen: Normal bowel sounds, Soft - Results Results: Laboratory Results WBC 9.9 x10^3/uL (4.8-10.8) 09/26/19 05:40 RBC 4.55 10^6/uL (4.20-5.40) 09/26/19 05:40 Hgb 13.3 g/dL (12.0-16.0) 09/26/19 05:40 Hct 39.8 % (37.0-47.0) 09/26/19 05:40 MCV 87.5 fL (81.0-99.0) 09/26/19 05:40 MCH 29.2 pg (27.0-31.0) 09/26/19 05:40 MCHC 33.4 g/dL (32.0-36.0) 09/26/19 05:40 RDW 13.8 % (12.0-15.0) 09/26/19 05:40 Plt Count 294 10^3/uL (130-450) 09/26/19 05:40 MPV 9.7 fL (7.9-10.8) 09/26/19 05:40 Neut # (Auto) 5.0 10^3/uL (1.5-6.6) 09/26/19 05:40 Lymph # (Auto) 3.7 10^3/uL (1.5-3.5) H 09/26/19 05:40 [place] # (Auto) 0.8 10^3/uL (0.0-1.0) 09/26/19 05:40 Eos # (Auto) 0.3 10^3/uL (0.0-0.7) 09/26/19 05:40 Baso # (Auto) 0.1 10^3/uL (0.0-0.1) 09/26/19 05:40 Absolute Nucleated RBC 0.00 x10^3/uL 09/26/19 05:40 Nucleated RBC % 0.0 /100WBC 09/26/19 05:40 PT 23.3 secs (9.9-12.6) H 09/26/19 05:40 INR 2.1 (0.8-1.2) H 09/26/19 05:40 Sodium 141 mmol/L (135-145) 09/26/19 05:40 Potassium 3.5 mmol/L (3.5-5.0) 09/26/19 05:40 Chloride 107 mmol/L (101-111) 09/26/19 05:40 Carbon Dioxide 27 mmol/L (21-32) 09/26/19 05:40 Anion Gap 7.0 (6-13) 09/26/19 05:40 BUN 19 mg/dL (6-20) 09/26/19 05:40 Creatinine 0.8 mg/dL (0.4-1.0) 09/26/19 05:40 Estimated GFR (MDRD) 76 (>89) L 09/26/19 05:40 Glucose 99 mg/dL (70-100) 09/26/19 05:40 Calcium 8.6 mg/dL (8.5-10.3) 09/26/19 05:40 Total Bilirubin 1.0 mg/dL (0.2-1.0) 09/25/19 15:38 AST 36 IU/L (10-42) 09/25/19 15:38 ALT 43 IU/L (10-60) 09/25/19 15:38 Alkaline Phosphatase 136 IU/L (42-121) H 09/25/19 15:38 Total Protein 7.4 g/dL (6.7-8.2) 09/25/19 15:38 Albumin 4.5 g/dL (3.2-5.5) 09/25/19 15:38 Globulin 2.9 g/dL (2.1-4.2) 09/25/19 15:38 Albumin/Globulin Ratio 1.6 (1.0-2.2) 09/25/19 15:38 Lipase 37 U/L (22-51) 09/25/19 15:38 Urine Color LT. YELLOW 09/25/19 16:32 Urine Clarity CLEAR (CLEAR) 09/25/19 16:32 Urine pH 7.0 PH (5.0-7.5) 09/25/19 16:32 Ur Specific [place] <=1.005 (1.002-1.030) 09/25/19 16:32 Urine Protein NEGATIVE mg/dL (NEGATIVE) 09/25/19 16:32 Urine Glucose (UA) NEGATIVE mg/dL (NEGATIVE) 09/25/19 16:32 Urine Ketones NEGATIVE mg/dL (NEGATIVE) 09/25/19 16:32 Urine Occult Blood TRACE-INTA (NEGATIVE) 09/25/19 16:32 Urine Nitrite NEGATIVE (NEGATIVE) 09/25/19 16:32 Urine Bilirubin NEGATIVE (NEGATIVE) 09/25/19 16:32 Urine Urobilinogen 0.2 (NORMAL) E.U./dL (NORMAL) 09/25/19 16:32 Ur Leukocyte Esterase NEGATIVE (NEGATIVE) 09/25/19 16:32 Ur Microscopic Review NOT INDICATED 09/25/19 16:32 Urine Culture Comments NOT INDICATED 09/25/19 16:32 Ethyl Alcohol < 5.0 mg/dL 09/25/19 15:38 Sepsis Event Note (H) - Evaluation Current Stage of Sepsis: Ruled out ABX Reporting Has patient been on IV antibiotics over the past 48 hours?: No Current Medications - Current Medications Current Medications: Active Medications Acetaminophen (Tylenol) 650 mg PO Q4HR PRN PRN Reason: Pain or Fever > 38C (100.4F) Last Admin: 09/26/19 05:28 Dose: 650 mg Aspirin (Ecotrin) 81 mg PO QPM JUAN Clonidine HCl (Catapres) 0.2 mg PO BID PRN PRN Reason: Hypertensive Emergency Cyclobenzaprine HCl (Flexeril) 5 mg PO TID JUAN Fluoxetine HCl (Prozac) 40 mg PO DAILY JUAN Gabapentin (Neurontin) 800 mg PO TID JUAN Last Admin: 09/26/19 17:24 Dose: 800 mg Heparin Sodium (Beef Lung) () 30 - 50 unit IVP PRN PRN PRN Reason: Port Protocol (<24 hours) Sodium Chloride (Normal Saline 0.9%) 1,000 mls @ 83.333 mls/hr IV .Q12H [facility] Stop: 09/27/19 15:59 Last Admin: 09/26/19 16:39 Dose: 83.333 mls/hr Labetalol HCl (Trandate Syringe) 10 mg IVP Q10M PRN PRN Reason: Hypertensive Emergency Labetalol HCl (Trandate) 600 mg PO TID [facility] Last Admin: 09/26/19 16:58 Dose: 600 mg Lisinopril (Zestril) 30 mg PO QPM [facility] Lorazepam (Ativan) 1 mg PO Q8H PRN PRN Reason: Anxiety Non-Formulary Medication (Brimonidine Tartrate/Timolol [Combigan 0.2%-0.5% Eye Drops]) 1 drops EACHEYE BID [facility] Non-Formulary Medication (Clonidine Hcl [Clonidine Hcl Er]) 0.1 mg PO QPM [facility] Non-Formulary Medication (Omeprazole [Omeprazole]) 20 mg PO QPM [facility] Ondansetron HCl (Zofran Odt) 4 mg PO Q4H PRN PRN Reason: Nausea / Vomiting Last Admin: 09/26/19 15:59 Dose: 4 mg Polyethylene Glycol (Miralax) 17 gm PO DAILY [facility] Last Admin: 09/26/19 08:46 Dose: Not Given Sodium Chloride (Normal Saline Flush 0.9%) 10 ml IVP PRN PRN PRN Reason: NEEDED PER PROVIDER ORDERS Last Admin: 09/25/19 21:09 Dose: 10 ml Sodium Chloride (Normal Saline Flush 0.9%) 10 ml IVP 0100,0900,1700 [facility] Last Admin: 09/26/19 17:25 Dose: Not Given Sodium Chloride (Normal Saline Flush 0.9%) 20 ml IVP PRN PRN PRN Reason: After Blood Draw Warfarin Sodium (Coumadin) 2.5 mg PO QDWARFARIN [facility] Last Admin: 09/26/19 15:10 Dose: 2.5 mg Aspirin [Aspirin EC] 81 mg PO QPM 04/24/19 Brimonidine Tartrate/Timolol [Combigan 0.2%-0.5% Eye Drops] 1 drops EACHEYE BID 04/24/19 Cyclobenzaprine HCl 5 mg PO TID 04/24/19 Fluoxetine HCl [Prozac] 40 mg PO DAILY 04/24/19 Gabapentin [Neurontin] 800 mg PO TID 04/24/19 Labetalol [Trandate] 600 mg PO TID 04/24/19 Warfarin [Coumadin] 2.5 mg PO DAILY PM 04/24/19 Furosemide 20 mg PO DAILY 05/14/19 Atorvastatin [Lipitor] 20 mg PO QPM 09/26/19 Clonidine HCl [Clonidine HCl ER] 0.1 mg PO QPM 09/26/19 Lisinopril 30 mg PO QPM 09/26/19 Omeprazole 20 mg PO QPM 09/26/19 Ondansetron [Ondansetron Odt] 4 mg PO Q4H PRN 09/26/19
[2019-09-26] MEDS ORDERED: cloNIDine 0.1 MG TABLET PO PRN (16:27)
[2019-09-26] MEDS: LABETALOL 100 MG TABLET PO SCH ×2 (16:58→20:50)
[2019-09-26] MEDS: GABAPENTIN 400 MG CAPSULE PO SCH ×2 (17:24→20:46)
[2019-09-26] MEDS ORDERED: LORazepam 1 MG TABLET PO PRN (18:03)
[2019-09-26] MEDS ORDERED: PANTOPRAZOLE 40 MG TABLET PO SCH (21:00)
[2019-09-26] MEDS ORDERED: TIMOLOL EACHEYE SCH (21:00)
[2019-09-26] MEDS ORDERED: cloNIDine 0.1 MG TABLET PO SCH (21:00)
[2019-09-26] MEDS ORDERED: ASPIRIN EC 81 MG TABLET PO SCH (21:00)
[2019-09-26] MEDS ORDERED: LISINOPRIL 20 MG TABLET PO SCH (21:00)
[2019-09-26] MEDS ORDERED: BRIMONIDINE TARTRATE EACHEYE SCH (21:00)
[2019-09-26] MEDS: CYCLOBENZAPRINE 10 MG TABLET PO SCH (21:02)
[2019-09-27] MEDS: SODIUM CHLORIDE FLUSH 0.9% 10 ML SYRINGE IVP SCH ×2 (00:10→08:44)
[2019-09-27] MEDS: SODIUM CHLORIDE 0.9% 1,000 ML IV SCH (03:45)
[2019-09-27] MEDS: LABETALOL 100 MG TABLET PO SCH ×2 (05:08→13:23)
[2019-09-27] MEDS: CYCLOBENZAPRINE 10 MG TABLET PO SCH ×2 (05:09→13:23)
[2019-09-27] MEDS: GABAPENTIN 400 MG CAPSULE PO SCH ×2 (05:09→13:23)
[2019-09-27] MEDS: POLYETHYLENE GLYCOL 3350 17 GM PACKET PO SCH (08:44)
[2019-09-27] MEDS ORDERED: FLUoxetine 10 MG CAPSULE PO SCH (09:00)
[2019-09-27 09:04] LABS: CALCIUM 8.8 mg/dL (8.5-10.3)
[2019-09-27 09:12] LABS: BASOPHILS # (AUTO) 0.1 10^3/uL (0.0-0.1); BASOPHILS % (AUTO) 0.6 %; EOSINOPHILS # (AUTO) 0.2 10^3/uL (0.0-0.7); HGB - HEMOGLOBIN 13.2 g/dL (12.0-16.0); LYMPHOCYTES # (AUTO) 3.2 10^3/uL (1.5-3.5); LYMPHOCYTES % (AUTO) 29.1 %; MEAN CORPUSCULAR HEMOGLOBIN 29.3 pg (27.0-31.0); MEAN CORPUSCULAR HGB CONC 33.1 g/dL (32.0-36.0); MEAN CORPUSCULAR VOLUME 88.5 fL (81.0-99.0); MEAN PLATELET VOLUME 10.4 fL (7.9-10.8); MONOCYTES % (AUTO) 8.9 %; NEUTROPHILS # (AUTO) 6.5 10^3/uL (1.5-6.6); PLT - PLATELET COUNT 307 10^3/uL (130-450); RED BLOOD COUNT 4.51 10^6/uL (4.20-5.40); WHITE BLOOD COUNT 11.1 x10^3/uL (4.8-10.8)
[2019-09-27 10:59] LABS: HCG,QUALITATIVE BLOOD NEGATIVE
--- NOTE | 2019-09-27 11:37 | XRAY Report ---
Reason: cough, wheezing Procedure Date: 09/27/2019 Accession Number: [id number] / [id number] Procedure: XR - Chest 1 View X-Ray CPT Code: 01844 Final Report FULL RESULT: EXAM: CHEST RADIOGRAPHY EXAM DATE: 09/27/2019 10:56 AM. CLINICAL HISTORY: Cough, wheezing. COMPARISON: None. TECHNIQUE: 1 view. FINDINGS: Line/support devices: Left chest port with tip projecting over the region of the lower SVC near the superior cavoatrial junction. Lungs/Pleura: No focal opacities evident. No pleural effusion. No pneumothorax. Mediastinum: Within exam limitations, the cardiomediastinal contour is normal. Other: Mild dextrocurvature of the thoracic spine. IMPRESSION: No acute cardiopulmonary process. RADIA
[2019-09-27 11:51] VITALS: BP 139/91
[2019-09-27 12:26] LABS: INR 1.5 (0.8-1.2)
--- NOTE | 2019-09-27 12:49 | Discharge Plan ---
Discharge Plan Problem Reviewed?: Yes Disposition: 06 Home Health Service Condition: Stable Diet: Regular Activity Restrictions: Activity as Tolerated Shower Restrictions: No (fall precaution) Instruction Topics: TIA Health Concerns: TIA Plan of Treatment: your image studies including CT/CTA/MRI of head, ECHO were unremarkable for acute finding. you walked with PT in [facility] and nurse station. Home health is arranged for you enhancing your strength. Care Goals: stabilization and improvement of your medical conditions. Assessment: assessment as the above Additional Instructions or Follow Up instructions: you may followup your PCP in one week and continue to manage your anticoagulant, followup neurologist as out-pt. Should your symptoms return or worsen, you may present ER or call 911 for help. Follow-Up Care: Home Health - PT No Smoking: If you smoke, Please STOP! Call for help. Follow-up with: Louis Hinds MD [Primary Care Provider] -
--- NOTE | 2019-09-27 13:02 | DISCHARGE SUMMARY ---
Discharge Summary Admit Date: 09/25/19 Discharge Date: 09/27/19 Discharging Provider: MEHTA Primary Care Provider: Condition at Discharge: Stable Discharge Disposition: Home Health Service Discharge Facility Name: home - DIAGNOSES Admission Diagnoses: (1) Stroke-like symptoms (2) Hypertensive urgency (3) Antiphospholipid antibody syndrome (4) Depression (5) History of CVA (cerebrovascular accident) Discharge Diagnoses with Status of Each Condition: 1) Stroke-like symptoms resolved as pt's baseline. pt was treated and evaluated by PT/OT. pt was referral to home health PT/home inspector per PT's recommend. pt's CT/CTA, MRI of brain, CTA of neck, ECHO are unremarkable for acute finding. discussed all test result with pt, answered all pt's questions. (2) Hypertensive urgency resolved (3) Antiphospholipid antibody syndrome stable. pt state she will see senior database engineer to evaluate her unstable INR value. pt report her unstable INR value has been long time and she is used to be high and low INR value. pt report she continue to take Coumadin 2.5 mg daily at home (4) Depression stable (5) History of CVA (cerebrovascular accident) stable. pt was referral to home health PT/home inspector - [facility] History of Present Illness: Ms. Adler is a 49-year-old female with a PMH significant for antiphospholipid antibody syndrome, previous CVA, HTN, depression, who present ER complain of right side weakness, and dysarthric speech. pt report her symptomst started at 1300 today. She complain of right side weakness, right side of numbness, garbled speech and right facial droop. pt was reported her symptoms was gradually better. she report she had episode like this happened to her on October 2017. she report her symptoms recovered rapidly before but she report she had incidences which was taken much longer time for her to be recovered for. Pt report she always has the right side issue when the weakness happened before. Pt denies chest pain, fever, chill, shortness of breath, headache, vision change, abdominal pain, nausea, vomiting, dysuria, hematuria. The Call was made by ER to [facility] ([place], [place]) neurologist, and recommended pt was not the candidate for TPA, due to pt is using Coumadin with INR 2.5, and had significant HTN. CTA of head and neck does reveals unremarkable for acute finding. pt was admitted for above medical condition in observation unit. - HOSPITAL COURSE Hospital Course: pt was admitted for stroke-like symptoms and HTN urgency. Pt had PT/OT evaluation and treatment in hospital. pt had image studies of CT,CTA and MRI of head, neck, and ECHO which were unremarkable for acute findings. Pt's HTN was controlled after treated at hospital. pt's stroke-like symptoms was resolved as her baseline. pt was referral to home health PT/AIDE per PT recommended. The detail hospital course is as the below: 1) Stroke-like symptoms resolved as pt's baseline. pt was treated and evaluated by PT/OT. pt was referral to home health PT/home inspector per PT's recommend. pt's CT/CTA, MRI of brain, CTA of neck, ECHO are unremarkable for acute finding. discussed all test result with pt, answered all pt's questions. (2) Hypertensive urgency resolved (3) Antiphospholipid antibody syndrome stable. pt state she will see senior database engineer to evaluate her unstable INR value. pt report her unstable INR value has been long time and she is used to be high and low INR value. pt report she continue to take Coumadin 2.5 mg daily at home (4) Depression stable (5) History of CVA (cerebrovascular accident) stable. pt was referral to home health PT/home inspector - ALLERGIES Allergies/Adverse Reactions: Allergies Allergy/AdvReac Type Severity Reaction Status Date / Time amitriptyline Allergy Anaphylaxis Verified 07/17/19 15:37 amlodipine Allergy Rash Verified 07/17/19 15:37 clindamycin Allergy Nausea Verified 07/17/19 15:37 diphenhydramine Allergy Anaphylaxis Verified 07/17/19 15:37 [From Benadryl] hydrochlorothiazide Allergy Anaphylaxis Verified 07/17/19 15:37 Penicillins Allergy Anaphylaxis Verified 07/17/19 15:37 - MEDICATIONS Home Medications: Ambulatory Orders Medication Instructions Recorded Confirmed Aspirin [Aspirin EC] 81 mg PO QPM 04/24/19 09/26/19 Brimonidine Tartrate/Timolol 1 drops EACHEYE BID 04/24/19 09/26/19 [Combigan 0.2%-0.5% Eye Drops] Cyclobenzaprine HCl 5 mg PO TID 04/24/19 09/26/19 Fluoxetine HCl [Prozac] 40 mg PO DAILY 04/24/19 09/26/19 Gabapentin [Neurontin] 800 mg PO TID 04/24/19 09/26/19 Labetalol [Trandate] 600 mg PO TID 04/24/19 09/26/19 Warfarin [Coumadin] 2.5 mg PO DAILY PM 04/24/19 09/26/19 Furosemide 20 mg PO DAILY 05/14/19 09/26/19 Atorvastatin [Lipitor] 20 mg PO QPM 09/26/19 09/26/19 Clonidine HCl [Clonidine HCl ER] 0.1 mg PO QPM 09/26/19 09/26/19 Lisinopril 30 mg PO QPM 09/26/19 09/26/19 Omeprazole 20 mg PO QPM 09/26/19 09/26/19 Ondansetron [Ondansetron Odt] 4 mg PO Q4H PRN 09/26/19 09/26/19 - PHYSICAL EXAM AT DISCHARGE General Appearance: positive: No acute distress, Alert. negative: Lethargic Eyes Bilateral: positive: Normal inspection, PERRL, No lid inflammation ENT: positive: ENT inspection nml, Pharynx nml, No signs of dehydration. negative: Purulent nasal drainage Neck: positive: Nml inspection, Thyroid nml, Trachea midline. negative: Thyromegaly, Lymphadenopathy (R), Lymphadenopathy (L), Stiff neck, Tracheal deviation Respiratory: positive: Chest non-tender, No respiratory distress, Breath sounds nml. negative: Wheezes, Rales, Rhonchi Cardiovascular: positive: Regular rate & rhythm, No murmur, No gallop. negative: Irregularly irregular, Extrasystoles, Tachycardia, Bradycardia, JVD present, Systolic murmur, Diastolic murmur Peripheral Pulses: positive: 2+ Abdomen: positive: Non-tender, No organomegaly, Nml bowel sounds, No distention. negative: Tenderness, Guarding, Rebound Back: positive: Nml inspection. negative: CVA tenderness (R), CVA tenderness (L) Skin: positive: Color nml, No rash, Warm, Dry. negative: Cyanosis, Diaphoresis, Pallor Extremities: positive: Non-tender, Nml appearance. negative: Calf tenderness, Rajiv's sign/cords Neurologic/Psychiatric: positive: Oriented x3, Sensation nml. negative: Weakness, Sensory loss, Facial droop, Slurred/abnml speech, Depressed mood/affect - LABS Result Diagrams: 09/27/19 08:20 09/27/19 08:20 - SEPSIS Current Stage of Sepsis: Ruled out - FOLLOW UP Follow Up: your image studies including CT/CTA/MRI of head, ECHO were unremarkable for acute finding. you walked with PT in [place] and nurse station. Home health is arranged for you enhancing your strength. you may followup your PCP in one week and continue to manage your anticoagulant, followup neurologist as out-pt. Should your symptoms return or worsen, you may present ER or call 911 for help. - TIME SPENT Time Spent in Discharge (Minutes): 60
[2019-09-27] MEDS: WARFARIN 2.5 MG TABLET PO SCH (13:23)
[2019-09-27] MEDS ORDERED: BRIMONIDINE 0.2% OPHTH DROPS 5 ML EACHEYE SCH (21:00)
[2019-09-27] MEDS ORDERED: TIMOLOL 0.5% OPHTH DROPS EACHEYE SCH (21:00)
== END 2019-09-27 14:38 | disposition home health service (06) ==
LOC: EDUNIT# → ED 14:48 → MS2 17:03
PROVIDERS: ADMIT Specialist; ATTEND Nurse Practitioner Gerontology
DX: R53.1 Weakness (principal); R47.1 Dysarthria and anarthria; R29.810 Facial weakness; I16.0 Hypertensive urgency; D68.61 Antiphospholipid syndrome; E86.0 Dehydration; F32.9 Major depressive disorder, single episode, unspecified; I69.951 Hemiplegia and hemiparesis following unspecified cerebrovascular disease affecting right dominant side; M26.69 Other specified disorders of temporomandibular joint; G93.89 Other specified disorders of brain; H40.9 Unspecified glaucoma; R29.711 NIHSS score 11; Z79.01 Long term (current) use of anticoagulants; Z79.82 Long term (current) use of aspirin
CPT/HCPCS: 36415; 70496; 70498; 70551; 71045; 80048; 80053; 80320; 81003; 83690; 84703; 85025; 85610; 93005; 93306; 96361; 96374; 96375; 96376; 97162; 97530; 99285; A9270; G0378; J2060; Q0162; Q9967; 81001; 87086

== ENCOUNTER 2019-12-16 09:02 | Outpatient (CLI) | payer MEDICAID | END 2019-12-16 09:03 | disposition home or self-care (01) | LOC: LAB 09:02 | PROVIDERS: ATTEND Family Medicine | DX: I69.951 Hemiplegia and hemiparesis following unspecified cerebrovascular disease affecting right dominant side (principal); D68.61 Antiphospholipid syndrome | CPT/HCPCS: 85610 ==

== ENCOUNTER 2020-09-11 13:53 | Outpatient (CLI) | payer MEDICAID | END 2020-09-11 13:54 | disposition home or self-care (01) | LOC: LAB 13:53 | PROVIDERS: ATTEND Family Medicine | DX: I69.951 Hemiplegia and hemiparesis following unspecified cerebrovascular disease affecting right dominant side (principal); D68.61 Antiphospholipid syndrome | CPT/HCPCS: 85610 ==

== ENCOUNTER 2020-09-11 14:15 | Outpatient (CLI) | payer MEDICAID ==
--- NOTE | 2020-09-14 16:12 | Ultrasound Report ---
LIMITED ULTRASOUND OF LEFT BREAST AND AXILLA: 09/11/2020 CLINICAL: Patient returns today to evaluate a focal asymmetry in the left breast. Comparison is made to exams dated: 09/11/2020 mammogram - [facility] and 06/12/2017 mammogram - [facility]. Ultrasound of the left breast 11 o'clock, and axilla regions was performed on the area of interest. IMPRESSION: PROBABLY BENIGN There is no sonographic evidence of malignancy. There is no mammographic or sonographic abnormality seen in the left breast to correspond with the qu estionable architectural distortion at 11 o'clock. This region likely respresent superimposed dense f ibroglandular tissue. A follow-up mammogram and an ultrasound in 6 months is recommended to demonstra te stability. This exam was interpreted at Station ID: [id number]. Electronically Signed By: Esther Neves M.D. lk/:09/11/2020 16:49:50 Ultrasound BI-RADS: 3 Probably benign BI-RADS CATEGORY: (3) - 3 Mammo and [place] [id number] 6 month follow-up LATERALITY: (B)
--- NOTE | 2020-09-14 16:12 | Mammography Report ---
BILATERAL DIGITAL DIAGNOSTIC MAMMOGRAM 3D/2D: 09/11/2020 CLINICAL: Mother with breast cancer. Grandmother with breast cancer. Comparison is made to exam dated: 06/12/2017 mammogram - [facility]. There are scattered fibrogl andular elements in both breasts. There is possible architectural distortion in the left breast at 11 o'clock middle depth. No other significant masses, calcifications, or other findings are seen in either breast. IMPRESSION: INCOMPLETE: NEEDS ADDITIONAL IMAGING EVALUATION The possible architectural distortion in the left breast is indeterminate. An ultrasound is recommen ded. This exam was interpreted at Station ID: [id number]. NOTE: For mammograms, a report in lay terms will be sent to the patient. Approximately 15% of breast malignancies will not be visualized mammographically. In the management of a palpable breast mass, a negative mammogram must not discourage biopsy of a clinically suspicious lesion. Electronically Signed By: Esther Neves M.D. lk/:09/11/2020 15:29:48 ACR BI-RADS Category 0: Incomplete 3340F PARENCHYMAL PATTERN: (A) - The breast(s) demonstrate(s) scattered fibroglandular densities. BI-RADS CATEGORY: (0) - 0 Ultrasound [id number] Immediate follow-up LATERALITY: (B)
== END 2020-09-11 14:16 | disposition home or self-care (01) ==
LOC: DI 14:15
PROVIDERS: ATTEND Family Medicine
DX: R92.8 Other abnormal and inconclusive findings on diagnostic imaging of breast (principal); Z80.3 Family history of malignant neoplasm of breast; I69.951 Hemiplegia and hemiparesis following unspecified cerebrovascular disease affecting right dominant side; D68.61 Antiphospholipid syndrome
CPT/HCPCS: 76642; 77066; 85610

== ENCOUNTER 2021-02-02 12:30 | Outpatient (CLI) | payer MEDICAID | END 2021-02-02 12:31 | disposition home or self-care (01) | LOC: LAB.N 12:30 | PROVIDERS: ATTEND Nurse Practitioner | DX: Z79.01 Long term (current) use of anticoagulants (principal) | CPT/HCPCS: 36415; 80053; 80061; 83721; 84443; 85027; 85610 ==

== ENCOUNTER 2021-06-24 10:02 | Outpatient (CLI) | payer MEDICAID ==
[2021-06-24 11:34] LABS: BASOPHILS # (AUTO) 0.1 10^3/uL (0.0-0.1); BASOPHILS % (AUTO) 0.9 %; EOSINOPHILS # (AUTO) 0.3 10^3/uL (0.0-0.7); EOSINOPHILS % (AUTO) 2.4 %; HCT - HEMATOCRIT 43.4 % (37.0-47.0); HGB - HEMOGLOBIN 14.3 g/dL (12.0-16.0); LYMPHOCYTES # (AUTO) 3.8 10^3/uL (1.5-3.5); LYMPHOCYTES % (AUTO) 34.4 %; MEAN CORPUSCULAR HEMOGLOBIN 29.8 pg (27.0-31.0); MEAN CORPUSCULAR HGB CONC 32.9 g/dL (32.0-36.0); MEAN CORPUSCULAR VOLUME 90.4 fL (81.0-99.0); MEAN PLATELET VOLUME 10.4 fL (7.9-10.8); MONOCYTES # (AUTO) 1.1 10^3/uL (0.0-1.0); MONOCYTES % (AUTO) 9.5 %; NEUTROPHILS # (AUTO) 5.8 10^3/uL (1.5-6.6); NEUTROPHILS % (AUTO) 52.4 %; PLT - PLATELET COUNT 317 10^3/uL (130-450); RED CELL DISTRIBUTION WIDTH 13.9 % (12.0-15.0)
[2021-06-24 12:03] LABS: THYROID STIMULATING HORMONE 4.18 uIU/mL (0.34-5.60)
[2021-06-24 12:06] LABS: ALBUMIN 4.6 g/dL (3.2-5.5); ALBUMIN/GLOBULIN RATIO 1.6 (1.0-2.2); ALKALINE PHOSPHATASE 122 IU/L (42-121); ALT ALANINE AMINOTRANSFERASE 28 IU/L (10-60); AST ASPARTATE AMINOTRANSFERASE 24 IU/L (10-42); BUN - BLOOD UREA NITROGEN 41 mg/dL (6-20); CALCIUM 9.7 mg/dL (8.5-10.3); CARBON DIOXIDE - CO2 27 mmol/L (21-32); CHLORIDE 101 mmol/L (101-111); CHOL/HDL RATIO 9.9 (<4.4); CHOLESTEROL 276 mg/dL; CREATININE 1.4 mg/dL (0.4-1.0); GFR - MDRD 39 (>89); GLUCOSE 115 mg/dL (70-100); HDL CHOLESTEROL 28 mg/dL; LDL CHOLESTEROL,CALCULATED 178 mg/dL; LDL/HDL RATIO 6.4 (<4.4); POTASSIUM 4.5 mmol/L (3.5-5.0); SODIUM 138 mmol/L (135-145); TOTAL PROTEIN 7.4 g/dL (6.7-8.2); TRIGLYCERIDES 348 mg/dL; VLDL CHOLESTEROL 70 mg/dL
== END 2021-06-24 10:03 | disposition home or self-care (01) ==
LOC: LAB.N 10:02
PROVIDERS: ATTEND Family Medicine
DX: I69.951 Hemiplegia and hemiparesis following unspecified cerebrovascular disease affecting right dominant side (principal); G40.909 Epilepsy, unspecified, not intractable, without status epilepticus; E78.00 Pure hypercholesterolemia, unspecified; I10 Essential (primary) hypertension; D68.61 Antiphospholipid syndrome
CPT/HCPCS: 36415; 80053; 80061; 83721; 84443; 85025; 85610

== ENCOUNTER 2021-08-12 08:00 | Outpatient (CLI) | payer MEDICAID | END 2021-08-12 23:59 | disposition home or self-care (01) | LOC: LAB.N 08:00 | PROVIDERS: ATTEND Family Medicine | DX: I69.951 Hemiplegia and hemiparesis following unspecified cerebrovascular disease affecting right dominant side (principal); D68.61 Antiphospholipid syndrome | CPT/HCPCS: 36416; 85610 ==

== ENCOUNTER 2021-09-16 15:47 | Outpatient (CLI) | payer MEDICAID | END 2021-09-16 15:48 | disposition home or self-care (01) | LOC: LAB.N 15:47 | PROVIDERS: ATTEND Family Medicine | DX: Z01.84 Encounter for antibody response examination (principal) | CPT/HCPCS: 86787 ==

== ENCOUNTER 2021-10-29 08:46 | Outpatient (CLI) | payer MEDICAID ==
--- NOTE | 2021-11-01 14:00 | Mammography Report ---
BILATERAL DIGITAL DIAGNOSTIC MAMMOGRAM 3D/2D: 10/29/2021 CLINICAL: Patient returns for a 6 month follow up of the left breast, due for bilateral exam. Comparison is made to exams dated: 09/11/2020 ultrasound, 09/11/2020 mammogram - [facility], 06/12/2017 mammogram - [facility], and 09/13/2011 mammogram - [facility]. There are scattered fibroglandular elements in both breasts. Prior asymmetry and area of architectural distortion are no longer seen in the left breast at 11 o'cl ock in the middle depth. This is consistent with overlapping fibroglandular tissue. No significant masses, calcifications, or other findings are seen in either breast. Mammograms are o therwise stable. IMPRESSION: NEGATIVE There is no mammographic evidence of malignancy. Return to annual mammogram screening schedule is rec ommended. Findings and recommendations were conveyed to the patient at time of exam. This exam was interpreted at Station ID: [id number]. NOTE: For mammograms, a report in lay terms will be sent to the patient. Approximately 15% of breast malignancies will not be visualized mammographically. In the management of a palpable breast mass, a negative mammogram must not discourage biopsy of a clinically suspicious lesion. Electronically Signed By: Bernarda grant/:10/29/2021 09:46:05 ACR BI-RADS Category 1: Negative 3341F PARENCHYMAL PATTERN: (A) - The breast(s) demonstrate(s) scattered fibroglandular densities. BI-RADS CATEGORY: (1) - 1 RECOMMENDATION: (ANNUAL) - Recommend routine annual screening mammography. [id number] return to screening LATERALITY: (B)
== END 2021-10-29 08:47 | disposition home or self-care (01) ==
LOC: DI 08:46
PROVIDERS: ATTEND Family Medicine
DX: R92.8 Other abnormal and inconclusive findings on diagnostic imaging of breast (principal)

== ENCOUNTER 2021-11-12 11:39 | Outpatient (CLI) | payer MEDICAID | END 2021-11-12 11:40 | disposition home or self-care (01) | LOC: LAB.N 11:39 | PROVIDERS: ATTEND Family Medicine | DX: I69.351 Hemiplegia and hemiparesis following cerebral infarction affecting right dominant side (principal); Z79.01 Long term (current) use of anticoagulants; D68.61 Antiphospholipid syndrome | CPT/HCPCS: 36416; 85610 ==

== ENCOUNTER 2022-05-05 15:29 | Outpatient (CLI) | payer MEDICAID | END 2022-05-05 15:30 | disposition critical access hospital (66) | LOC: EMS 15:29 | DX: R10.817 Generalized abdominal tenderness (principal); R53.1 Weakness; R11.0 Nausea | CPT/HCPCS: A0425; A0429; A0999 ==

== ENCOUNTER 2022-05-05 15:56 | Inpatient (IN) | payer MEDICAID ==
--- NOTE | 2022-05-05 16:14 | ED Physician Documentation ---
History of Present Illness - Stated complaint Stated Complaint: ABD PX - Chief complaint Chief Complaint: Abd Pain - Additonal information Additional information: 52-year-old female was referred to the emergency department on the advice of her primary care doctor for evaluation of what he believes to be severe dehydration in the setting of 3 to 4 days nausea, vomiting and diarrhea. The patient states that she has had multiple episodes of vomiting and diarrhea each day all nonbloody. The diarrhea has been the worst symptom. No recent abx. Has been unable to stay adequately hydrated. She has some generalized abdominal discomfort but no focal tenderness. Past medical history is most significant for previous CVA secondary to antiphospholipid syndrome. She is anticoagulated on Xarelto (failed coumadin) She does have some residual right-sided deficits that include occasional weakness, numbness tingling and some slurring of the speech. At baseline she is ambulatory with a cane. Due to a history of difficulty with IV access she does have a left-sided port in place that she request we utilize Review of Systems Constitutional: denies: Fever, Chills Nose: reports: Reviewed and negative Throat: reports: Reviewed and negative Cardiac: reports: Reviewed and negative Respiratory: reports: Reviewed and negative GI: reports: Abdominal Pain, Nausea, Vomiting. denies: Constipation, Diarrhea, Hematemesis, Bloody / black stool : reports: Reviewed and negative Skin: reports: Reviewed and negative Musculoskeletal: reports: Reviewed and negative PD PAST MEDICAL HISTORY - Past Medical History Cardiovascular: Hypertension Neuro: CVA HEENT: Glaucoma Psych: Depression Musculoskeletal: Other Derm: None - Past Surgical History Past Surgical History: Yes General: Cholecystectomy Ortho: Other - Present Medications Home Medications: Ambulatory Orders Medication Instructions Recorded Confirmed Aspirin [Aspirin EC] 81 mg PO QPM 04/24/19 03/13/20 Brimonidine Tartrate/Timolol 1 drops EACHEYE BID 04/24/19 03/13/20 [Combigan 0.2%-0.5% Eye Drops] Cyclobenzaprine HCl 5 mg PO TID 04/24/19 03/13/20 Fluoxetine HCl [Prozac] 40 mg PO DAILY 04/24/19 03/13/20 Gabapentin [Neurontin] 800 mg PO TID 04/24/19 03/13/20 Labetalol [Trandate] 600 mg PO TID 04/24/19 03/13/20 Warfarin [Coumadin] 2.5 mg PO DAILY PM 04/24/19 03/13/20 Furosemide 20 mg PO DAILY 05/14/19 03/13/20 Atorvastatin [Lipitor] 20 mg PO QPM 09/26/19 03/13/20 Clonidine HCl [Clonidine HCl ER] 0.1 mg PO QPM 09/26/19 03/13/20 Omeprazole 20 mg PO QPM 09/26/19 03/13/20 Ondansetron [Ondansetron Odt] 4 mg PO Q4H PRN 09/26/19 03/13/20 lisinopriL [Lisinopril] 30 mg PO QPM 09/26/19 03/13/20 - Allergies Allergies/Adverse Reactions: Allergies Allergy/AdvReac Type Severity Reaction Status Date / Time amitriptyline Allergy Anaphylaxis Verified 05/05/22 16:05 amlodipine Allergy Rash Verified 05/05/22 16:05 clindamycin Allergy Nausea Verified 05/05/22 16:05 diphenhydramine Allergy Anaphylaxis Verified 05/05/22 16:05 [From Benadryl] hydralazine Allergy Hallucinati Verified 05/05/22 16:05 ons hydrochlorothiazide Allergy Anaphylaxis Verified 05/05/22 16:05 Penicillins Allergy Anaphylaxis Verified 05/05/22 16:05 - Social History Does the pt smoke?: No Smoking Status: Never smoker Does the pt drink ETOH?: No Does the pt have substance abuse?: No - Immunizations Immunizations are current?: Yes - POLST POLST Status: Full Code PD ED PE NORMAL - General General: Alert and oriented X 3, No acute distress, Well developed/nourished - HEENT HEENT: Atraumatic. No: Moist mucous membranes (Dry lips and oral mucosa) - Neck Neck: Supple, no meningeal sign, No adenopathy - Cardiac Cardiac: RRR, No murmur, No gallop - Respiratory Respiratory: No respiratory distress, Clear bilaterally - Abdomen Abdomen: Normal bowel sounds, Soft, Non tender (Mild generalized abdominal tenderness. Nonfocal. Nonperitoneal. Negative Ramon's, negative McBurney's) - Back Back: No CVA TTP, No spinal TTP - Derm Derm: Normal color, Warm and dry, No rash, Other - Extremities Extremities: No deformity, No tenderness to palpate, Normal ROM s pain - Neuro Neuro: Alert and oriented X 3, discharge coordinator 2-12 intact Eye Opening: Spontaneous Motor: Obeys Commands Verbal: Oriented GCS Score: 15 Results - Vitals Vitals: Vital Signs - 24 hr 05/05/22 05/05/22 16:05 16:08 Temperature 37.3 C 37.3 C Heart Rate 70 70 Respiratory 16 16 Rate Blood Pressure 182/99 H 182/99 H O2 Saturation 97 97 Oxygen O2 Source Room air - Rads (name of study) CT abd Radiology: Final report received (No bowel obstruction or abnormal bowel wall thickening. Appendix is within normal limits. Tiny 3 to 4 mm nonobstructing stones in the midpole of left kidney. No hydronephrosis or hydroureter. Prior cholecystectomy. degenerative disc disease in lumbar spine) PD MEDICAL DECISION MAKING - ED course Complexity details: reviewed old records, reviewed results, re-evaluated patient, considered differential, d/w patient ED course: 52-year-old female who has a history most significant for antiphospholipid syndrome with a history of previous CVA and right-sided deficits presents the emergency department for evaluation of acute kidney injury in the setting of vomiting and diarrhea for the last 3 to 4 days. Her primary care provider Dr. Martinez had notified me that she was in route to the hospital. Stated he had seen her recently and noted her to be mildly hypotensive though on reevaluation it had normalized. When he had screening labs obtained today there was findings of acute kidney injury which he is attributing to the vomiting and diarrhea. On presentation the patient appears rather well. No significant abdominal tenderness was elicited. She is afebrile. Her screening labs were most signi ficant for elevated BUN and creatinine specifically 89 and 5.3. Previous creatinine appears to have a baseline value of about 1.4. Noncontrast CT of the abdomen was obtained to rule out urinary obstruction. She does have some tiny 3 to 4 mm nonobstructing stones in the pole of the left kidney but no findings to suggest hydroureter or hydronephrosis. This patient was repleted with 1 L crystalloid here in the emergency department and started on maintenance at 100 mils per hour. I did discuss the case with Dr. Forde who agrees to admit the patient for further evaluation and management of her acute kidney injury likely secondary to dehydration. Departure - Departure Disposition: 66 [facility] DC/Xfer Clinical Impression: Acute kidney injury, Vomiting and diarrhea, History of antiphospholipid syndrome, History of CVA (cerebrovascular accident)
[2022-05-05] MEDS ORDERED: SODIUM CHLORIDE 0.9% 1,000 ML IV STA ×2 (16:30)
--- NOTE | 2022-05-05 16:37 | CT Report ---
PROCEDURE: Abdomen/Pelvis WO INDICATIONS: gabriele; n/v TECHNIQUE: Noncontrast 5 mm thick sections acquired from the diaphragms to the symphysis. 5 mm coronal and sagi ttal reformats were then performed. For radiation dose reduction, the following was used: automated exposure control, adjustment of mA and/or kV according to patient size. COMPARISON: None. FINDINGS: Image quality: Excellent. ABDOMEN: Lung bases: Lung bases are clear. Heart size is normal. Solid organs: Liver and spleen are normal in size. Gallbladder is surgically absent Pancreas is no rmal in contours. No adrenal nodules. Kidneys are normal in size, without hydronephrosis. 3 to 4 mm nonobstructing stones versus vascular calcifications are seen in mid pole of left kidney. No hydrour eter. Peritoneum and bowel: Unenhanced bowel loops demonstrate normal wall thickness and caliber. No free fluid or air. Appendix is visualized and is within normal limits. Nodes and vessels: No retroperitoneal or mesenteric adenopathy by size criteria. Aorta and inferior vena cava are normal in caliber. Mild to moderate atherosclerotic calcifications are seen in the ab dominal aorta. Miscellaneous: No ventral hernias. PELVIS: Genitourinary: Bladder wall thickness is normal. Miscellaneous: No inguinal lymphadenopathy. Left inguinal hernia is seen containing fat only. Bones: No suspicious bony lesions. No vertebral body compression fractures. Degenerative endplate c hanges and loss of disc height is seen at L2-3 and L4-5 levels. IMPRESSION: 1. No bowel obstruction or abnormal bowel wall thickening. No free fluid or free air. Appendix is wit hin normal limits. 2. Tiny 3 to 4 mm nonobstructing stones in mid pole of left kidney. No hydronephrosis or hydroureter. 3. Prior cholecystectomy. 4. Degenerative disc disease in lumbar spine as above. No acute compression fracture. Reviewed by: Ritesh Benavidez MD on 05/05/2022 4:36 PM PDT Approved by: Ritesh Benavidez MD on 05/05/2022 4:36 PM PDT Station ID: [id number]
--- NOTE | 2022-05-05 16:44 | XRAY Report ---
PROCEDURE: Chest 1 View X-Ray INDICATIONS: chest pain TECHNIQUE: One view of the chest was acquired. COMPARISON: None FINDINGS: Surgical changes and devices: Left chest wall central venous port catheter in appropriate position. Lungs and pleura: No pleural effusions or pneumothorax. Lungs are clear. Mediastinum: Mediastinal contours appear normal. Heart size is normal. Bones and chest wall: No suspicious bony lesions. Overlying soft tissues appear unremarkable. IMPRESSION: No acute cardiopulmonary process demonstrated radiographically. Reviewed by: Arsenio Latif MD on 05/05/2022 4:43 PM PDT Approved by: Arsenio Latif MD on 05/05/2022 4:43 PM PDT Station ID: [id number]
[2022-05-05 16:50] LABS: BILIRUBIN,URINE NEGATIVE (NEGATIVE); GLUCOSE, URINE (UA) NEGATIVE (NEGATIVE); KETONES,URINE (UA) NEGATIVE (NEGATIVE); LEUKOCYTE ESTERASE, URINE NEGATIVE (NEGATIVE); NITRITE,URINE NEGATIVE (NEGATIVE); OCCULT BLOOD,URINE TRACE-INTA (NEGATIVE); PH,URINE 5.5 PH (5.0-7.5); PROTEIN,URINE NEGATIVE (NEGATIVE); UROBILINOGEN,URINE 0.2 (NORMAL) E.U./dL (NORMAL)
[2022-05-05] MEDS ORDERED: ACETAMINOPHEN 325 MG TABLET PO PRN (16:58)
[2022-05-05] MEDS ORDERED: ONDANSETRON ODT 4 MG TABLET TL PRN (16:58)
[2022-05-05 17:07] LABS: CLARITY,URINE CLEAR (CLEAR)
--- NOTE | 2022-05-05 17:21 | HISTORY & PHYSICAL EXAMINATION ---
Chief Complaint - Chief Complaint Chief Complaint: Abnormal labs History of Present Illness - Admitted From Admitted From:: Home - History Obtained From Records Reviewed: [facility] History obtained from: Patient, Significant other, ER Provider, EMR - History of Present Illness HPI Comment/Other: This is a 52-year-old female with a past medical history significant for stroke with residual right-sided deficit, antiphospholipid syndrome, hypertension, depression who presents today after having abnormal labs on outpatient basis. The patient states she has been feeling unwell for about the past week or so. She developed diarrhea over the weekend. She then began to feel fatigued and generally weak. She has had nausea and vomiting and limited p.o. intake. She reports her blood pressure has been quite labile ranging in the 180 systolic down to the 60s systolic. Given she was feeling sick over the week and had progressive weakness, she saw her primary care physician yesterday. She had labs done today and she was told to come to the emergency department because her labs were abnormal and showed signs of dehydration and kidney problems. She reports occasional abdominal pain. States has not had any diarrhea today and her last bowel movement was yesterday. She does have 1 meal a day and to her knowledge, she believes she drinks enough fluids. She does take lisinopril but not take it today. She is also on Lasix which she has not yet taken today. The last dose of her Xarelto was yesterday evening. She feels just generally weak and feels like her speech is a little bit more slurred than usual. Her significant other states that she is premature at her baseline with regards to her speech as she has had difficulty with that due to her prior strokes. Given she was found to have acute kidney injury with a creatinine over 5 on outpatient basis, she had a CT Emergency Department which showed no evidence of obstruction. Given this, she received IV fluids and medicine was consulted for admission. History - Past Medical History Cardiovascular: reports: Hypertension Neuro: reports: CVA HEENT: reports: Glaucoma Psych: reports: Depression Derm: reports: None MRSA Hx?: No Other Past Medical History: Antiphospholipid syndrome - Past Surgical History General: reports: Cholecystectomy Ortho: reports: Other - Family & Social History Family History: Mother: Alive and Well, CVA/TIA, Hypertension, Seizure Disorder, Father: Alive and Well Family History Comment/Other: She reports mother has a history of stroke and suffers from seizure disorder. Her father from dementia and myocardial infarction. Living arrangement: At home Living Situation: With spouse/s.o. Social History Notes: She lives with her significant other, Rik. She states she smoked a pack a day for 22 years but quit in early . She has a history of alcohol use in the past but denies any current use. She does use marijuana on a near daily basis. - POLST POLST Status: Full Code Meds/Allgy - Home Medications Home Medications: Ambulatory Orders Medication Instructions Recorded Confirmed Aspirin [Aspirin EC] 81 mg PO QPM 04/24/19 03/13/20 Brimonidine Tartrate/Timolol 1 drops EACHEYE BID 04/24/19 03/13/20 [Combigan 0.2%-0.5% Eye Drops] Cyclobenzaprine HCl 5 mg PO TID 04/24/19 03/13/20 Fluoxetine HCl [Prozac] 40 mg PO DAILY 04/24/19 03/13/20 Gabapentin [Neurontin] 800 mg PO TID 04/24/19 03/13/20 Labetalol [Trandate] 600 mg PO TID 04/24/19 03/13/20 Furosemide 20 mg PO DAILY 05/14/19 03/13/20 Atorvastatin [Lipitor] 20 mg PO QPM 09/26/19 03/13/20 Clonidine HCl [Clonidine HCl ER] 0.1 mg PO QPM 09/26/19 03/13/20 Lisinopril [Zestril] 15 mg PO QPM 05/05/22 Rivaroxaban [Xarelto] 20 mg PO QDDINNER 05/05/22 - Allergies Allergies/Adverse Reactions: Allergies Allergy/AdvReac Type Severity Reaction Status Date / Time amitriptyline Allergy Anaphylaxis Verified 05/05/22 16:05 amlodipine Allergy Rash Verified 05/05/22 16:05 clindamycin Allergy Nausea Verified 05/05/22 16:05 diphenhydramine Allergy Anaphylaxis Verified 05/05/22 16:05 [From Benadryl] hydralazine Allergy Hallucinati Verified 05/05/22 16:05 ons hydrochlorothiazide Allergy Anaphylaxis Verified 05/05/22 16:05 Penicillins Allergy Anaphylaxis Verified 05/05/22 16:05 Review of Systems - Constitutional Constitutional: reports: Fatigue, Chills, Malaise, Weakness, Poor appetite. denies: Fever - Cardiovascular Cariovascular: denies: Chest pain, Exertional dyspnea, Decr. exercise tolerance - Respiratory Respiratory: denies: Cough, SOB at rest, SOB with exertion - Gastrointestinal Gastrointestinal: reports: Abdominal pain, Diarrhea, Nausea, Vomiting - Genitourinary Genitourinary: denies: Dysuria, Frequency, Urgency, Hematuria - Musculoskeletal Musculoskeletal: denies: Muscle aches - Integumentary Integumentary: denies: Rash - Neurological Neurological: reports: General weakness, Focal weakness, Pre-existing deficit, Slurred speech - Psychiatric Psychiatric: reports: Depression - Hematologic/Lymphatic Hematologic/Lymphatic: denies: Bleeding tendencies - All Other Systems All Other Systems: reports: Reviewed and negative Prior Level of Functionality: She is able to ambulate on her own although low will occasionally an oral surgery assistant device given her right sided weakness. Exam - Vital Signs Reviewed Vital Signs: Yes Vital Signs: Vital Signs x48h Temp Pulse Resp BP Pulse Ox 05/05/22 16:08 37.3 C 70 16 182/99 H 97 05/05/22 16:05 37.3 C 70 16 182/99 H 97 - Physical Exam General Appearance: positive: No acute distress, Alert Eyes Bilateral: positive: Normal inspection, Conjunctivae nml ENT: positive: Dry mucous membranes. negative: No signs of dehydration Neck: positive: Nml inspection Respiratory: positive: No respiratory distress. negative: Wheezes, Rales Cardiovascular: positive: Regular rate & rhythm, No murmur. negative: Tachycardia Abdomen: positive: Nml bowel sounds, No distention, Tenderness (Mild diffuse tenderness). negative: Guarding, Rebound Skin: positive: Warm, Dry Extremities: positive: No pedal edema Neurologic/Psychiatric: positive: Slurred/abnml speech (Speech is delayed.), Other (She has 3 out of 5 motor strength in right lower extremity and 4-5 in the right upper extremity which is her baseline.). negative: Disoriented to person, Disoriented to place Conclusion/Plan - Problem List (1) Acute kidney injury Conclusion/Plan: This is likely prerenal in injury. Her creatinine is already a little better compared to earlier this morning at 5.2. She appears quite dry on exam. Her acute kidney injury is likely due to volume depletion and is compounded by the fact she is on a diuretic and lisinopril. We will hydrate her with lactated Ringer's and give another bolus of LR. We will check a urine sodium as I suspe ct it will be quite decreased. Hold home lisinopril and diuretic. We will recheck labs in the morning as her electrolytes are currently acceptable. CT fortunately showed no evidence of obstruction. (2) Vomiting and diarrhea Conclusion/Plan: She reports vomiting and diarrhea over the past week with last episode of emesis at about 9:30 AM this morning. She reports no diarrhea today. This sounds like a gastroenteritis. Low suspicion for C. difficile given no recent antibiotic use and the fact she had no diarrhea today. We will manage her symptoms with IV antiemetics and IV fluids. If she begins to have diarrhea we will check C. difficile and stool cultures. CT showed no acute abnormalities. (3) Hypertension Conclusion/Plan: She is currently quite hypertensive with systolics in the 180s. She is on lab etalol and lisinopril at home. We will resume the labetalol but hold lisinopril due to acute kidney injury. Given her labile blood pressures at home, we will monitor his closely to avoid hypotension. (4) History of CVA (cerebrovascular accident) Conclusion/Plan: This secondary to antiphospholipid syndrome and she is on Xarelto. She feels a little weaker than usual in her right side and that her speech is more delayed than usual which likely exacerbated by the dehydration and acute kidney injury. We will manage that as mentioned above. (5) History of antiphospholipid syndrome Conclusion/Plan: He is on Xarelto at home. We will hold the evening dose given the acute kidney injury and we will look to resume Eliquis tomorrow as long as her renal function continues to improve. (6) Depression Conclusion/Plan: We will continue fluoxetine. - Lab Results Lab results reviewed: Yes Fish Bones: 05/05/22 17:10 - Diagnostic Imaging Results Diagnostic Imaging Results: positive: Final report reviewed Core Measures - Anticipated LOS I expect patient to be DC'd or transferred within 96 hours.: Yes - Issues Hospital Issues and Management Plan: 52-year-old female presents with weakness, nausea vomiting found to have acute kidney injury and appears to be quite dehydrated. We will admit for IV fluids and further work-up of the nausea/vomiting. - DVT/VTE - Prophylaxis VTE/DVT Device ordered at admit?: Yes VTE/DVT Prophylaxis med ordered at admit?: No
[2022-05-05 17:28] LABS: MAGNESIUM 2.3 mg/dL (1.7-2.8); PHOSPHORUS 6.2 mg/dL (2.5-4.6)
[2022-05-05 17:43] LABS: CALCIUM 9.4 mg/dL (8.5-10.3); CREATININE 5.2 mg/dL (0.4-1.0); POTASSIUM 4.3 mmol/L (3.5-5.0)
[2022-05-05] MEDS: SODIUM CHLORIDE FLUSH 0.9% 10 ML SYRINGE IVP SCH (18:09)
[2022-05-05] MEDS: LACTATED RINGERS 1,000 ML IV SCH (18:09)
[2022-05-05] MEDS: LABETALOL 100 MG TABLET PO SCH (21:54)
[2022-05-06] MEDS: LACTATED RINGERS 1,000 ML IV SCH ×4 (00:19→19:29)
[2022-05-06] MEDS: SODIUM CHLORIDE FLUSH 0.9% 10 ML SYRINGE IVP SCH ×3 (00:19→16:24)
[2022-05-06] MEDS: LABETALOL 100 MG TABLET PO SCH ×3 (05:31→21:12)
[2022-05-06] MEDS: ONDANSETRON 4 MG/2 ML VIAL IVP PRN (05:32)
--- NOTE | 2022-05-06 07:45 | PROVIDER PROGRESS NOTE ---
Subjective - Prog Note Date Prog Note Date: 05/06/22 - Subjective Subjective: She feels better today. Still a little weak overall but improved. No vomiting or diarrhea. Current Medications - Current Medications Current Medications: Active Medications Acetaminophen (Acetaminophen 325 Mg Tablet) 650 mg PO Q4HR PRN PRN Reason: Pain 1 to 4, or Fever Last Admin: 05/05/22 21:57 Dose: 650 mg Aspirin (Aspirin Ec 81 Mg Tablet) 81 mg PO QPM [facility] Atorvastatin Calcium (Atorvastatin 10 Mg Tablet) 20 mg PO QPM [facility] Brimonidine Tartrate (Brimonidine 0.2% Ophth Drops 5 Ml) 1 drops EACHEYE BID [facility] Fluoxetine HCl (Fluoxetine 10 Mg Capsule) 40 mg PO DAILY [facility] Lactated Ringer's (Lr) 1,000 mls @ 150 mls/hr IV .Q6H40M [facility] Last Admin: 05/06/22 06:29 Dose: 150 mls/hr Labetalol HCl (Labetalol 100 Mg Tablet) 300 mg PO TID [facility] Last Admin: 05/06/22 05:31 Dose: 300 mg Ondansetron HCl (Ondansetron Odt 4 Mg Tablet) 4 mg TL Q6HR PRN PRN Reason: Nausea / Vomiting Ondansetron HCl (Ondansetron 4 Mg/2 Ml Vial) 4 mg IVP Q6HR PRN PRN Reason: Nausea / Vomiting Last Admin: 05/06/22 05:32 Dose: 4 mg Sodium Chloride (Sodium Chloride Flush 0.9% 10 Ml Syringe) 10 ml IVP PRN PRN PRN Reason: NEEDED PER PROVIDER ORDERS Sodium Chloride (Sodium Chloride Flush 0.9% 10 Ml Syringe) 10 ml IVP 0100,0900,1700 [facility] Last Admin: 05/06/22 00:19 Dose: 10 ml Timolol Maleate (Timolol 0.5% Ophth Drops) 1 drops EACHEYE BID [facility] Aspirin [Aspirin EC] 81 mg PO QPM 04/24/19 Brimonidine Tartrate/Timolol [Combigan 0.2%-0.5% Eye Drops] 1 drops EACHEYE BID 04/24/19 Cyclobenzaprine HCl 5 mg PO TID 04/24/19 Fluoxetine HCl [Prozac] 40 mg PO DAILY 04/24/19 Gabapentin [Neurontin] 800 mg PO TID 04/24/19 Labetalol [Trandate] 600 mg PO TID 04/24/19 Furosemide 20 mg PO DAILY 05/14/19 Atorvastatin [Lipitor] 20 mg PO QPM 09/26/19 Clonidine HCl [Clonidine HCl ER] 0.1 mg PO QPM 09/26/19 Lisinopril [Zestril] 15 mg PO QPM 05/05/22 Rivaroxaban [Xarelto] 20 mg PO QDDINNER 05/05/22 Objective - Vital Signs/Intake & Output Reviewed Vital Signs: Yes Vital Signs: Vital Signs x48h Temp Pulse Resp BP Pulse Ox 05/06/22 07:43 67 17 197/118 H 95 05/06/22 05:30 36.6 C 72 18 198/105 H 95 Intake & Output: Intake & Output 05/03/22 05/04/22 05/05/22 05/06/22 23:59 23:59 23:59 23:59 Intake Total 1402.5 1925 Output Total 1000 2300 Balance 402.5 -375 - Objective General Appearance: positive: No acute distress Eyes Bilateral: positive: Normal inspection, Conjunctivae nml Respiratory: positive: No respiratory distress Cardiovascular: negative: Irregularly irregular, Tachycardia Abdomen: positive: No distention, Tenderness (Still mild tenderness but improved). negative: Guarding, Rebound Skin: positive: Warm, Dry Extremities: positive: No pedal edema Neurologic/Psychiatric: positive: Other (4 out of 5 motor strength in right upper and right lower extremity.). negative: Disoriented to person, Disoriented to place - Lab Results Fish Bones: 05/06/22 08:45 05/06/22 08:45 Other Labs: Lab Results x24hrs 05/05/22 05/05/22 05/05/22 Range/Units 17:10 17:10 17:05 Sodium 138 (135-145) mmol/L Potassium 4.3 (3.5-5.0) mmol/L Chloride 98 L (101-111) mmol/L Carbon Dioxide 29 (21-32) mmol/L Anion Gap 11.0 (6-13) BUN 85 H* (6-20) mg/dL Creatinine 5.2 H (0.4-1.0) mg/dL Estimated GFR (MDRD) 9 L (>89) Glucose 96 (70-100) mg/dL Calcium 9.4 (8.5-10.3) mg/dL Phosphorus 6.2 H (2.5-4.6) mg/dL Magnesium 2.3 (1.7-2.8) mg/dL Urine Color Urine Clarity (CLEAR) Urine pH (5.0-7.5) PH Ur Specific [place] (1.002-1.030) Urine Protein (NEGATIVE) mg/dL Urine Glucose (UA) (NEGATIVE) mg/dL Urine Ketones (NEGATIVE) mg/dL Urine Occult Blood (NEGATIVE) Urine Nitrite (NEGATIVE) Urine Bilirubin (NEGATIVE) Urine Urobilinogen (NORMAL) E.U./dL Ur Leukocyte Esterase (NEGATIVE) Ur Microscopic Review Urine Culture Comments Urine Sodium mmol/L SARS-CoV-2 (PCR) NOT DETECTED 05/05/22 05/05/22 Range/Units 16:42 16:42 Sodium (135-145) mmol/L Potassium (3.5-5.0) mmol/L Chloride (101-111) mmol/L Carbon Dioxide (21-32) mmol/L Anion Gap (6-13) BUN (6-20) mg/dL Creatinine (0.4-1.0) mg/dL Estimated GFR (MDRD) (>89) Glucose (70-100) mg/dL Calcium (8.5-10.3) mg/dL Phosphorus (2.5-4.6) mg/dL Magnesium (1.7-2.8) mg/dL Urine Color YELLOW Urine Clarity CLEAR (CLEAR) Urine pH 5.5 (5.0-7.5) PH Ur Specific [place] 1.015 (1.002-1.030) Urine Protein NEGATIVE (NEGATIVE) mg/dL Urine Glucose (UA) NEGATIVE (NEGATIVE) mg/dL Urine Ketones NEGATIVE (NEGATIVE) mg/dL Urine Occult Blood [place] (NEGATIVE) Urine Nitrite NEGATIVE (NEGATIVE) Urine Bilirubin NEGATIVE (NEGATIVE) Urine Urobilinogen 0.2 (NORMAL) (NORMAL) E.U./dL Ur Leukocyte Esterase NEGATIVE (NEGATIVE) Ur Microscopic Review NOT INDICATED Urine Culture Comments NOT INDICATED Urine Sodium 14.0 mmol/L SARS-CoV-2 (PCR) Assessment/Plan - Problem List (1) Acute kidney injury Impression: Her acute kidney injury is related to volume depletion from the diarrhea and vomiting. Her creatinine was 5.4 on admission and today it is down to 3.7. Her urine sodium was less than 15 and imaging revealed no evidence of obstruction. We will continue to hydrate her with lactated Ringer's. Continue to hold her home lisinopril. I suspect she should be able to go home in 1 to 2 days. (2) Vomiting and diarrhea Impression: She has had no further episodes of vomiting or diarrhea during this hospitalization. Suspect this may have been due to a gastroenteritis. We will continue with diet as tolerated and IV hydration given her acute kidney injury. Zofran as needed for nausea. (3) Hypertension Impression: She remains hypertensive and we will increase the dose of her labetalol to her home dose. We are holding lisinopril given the acute kidney injury. If she rem ains hypertensive then we can add clonidine. She unfortunately has multiple allergies to antihypertensives. (4) History of CVA (cerebrovascular accident) Impression: This is secondary to antiphospholipid syndrome and she has residual right-sided deficits which are stable. Resume anticoagulation today. (5) History of antiphospholipid syndrome Impression: On Xarelto at home. We will start her on Eliquis during this hospitalization as this is what we use at our facility. Although her creatinine is still elevated , significant improvement since admission suggest that her creatinine clearance is actually much higher so we will start her on Eliquis 5 mg twice daily. On discharge she can continue Xarelto. (6) Depression Impression: We are continuing her home fluoxetine.
[2022-05-06 08:52] LABS: BASOPHILS # (AUTO) 0.1 10^3/uL (0.0-0.1); BASOPHILS % (AUTO) 0.8 %; EOSINOPHILS # (AUTO) 0.2 10^3/uL (0.0-0.7); EOSINOPHILS % (AUTO) 1.6 %; HCT - HEMATOCRIT 39.5 % (37.0-47.0); HGB - HEMOGLOBIN 13.3 g/dL (12.0-16.0); LYMPHOCYTES # (AUTO) 2.9 10^3/uL (1.5-3.5); LYMPHOCYTES % (AUTO) 23.8 %; MEAN CORPUSCULAR HEMOGLOBIN 29.5 pg (27.0-31.0); MEAN CORPUSCULAR HGB CONC 33.7 g/dL (32.0-36.0); MEAN CORPUSCULAR VOLUME 87.6 fL (81.0-99.0); MONOCYTES # (AUTO) 1.1 10^3/uL (0.0-1.0); MONOCYTES % (AUTO) 8.6 %; NEUTROPHILS # (AUTO) 7.9 10^3/uL (1.5-6.6); PLT - PLATELET COUNT 292 10^3/uL (130-450); RED BLOOD COUNT 4.51 10^6/uL (4.20-5.40); RED CELL DISTRIBUTION WIDTH 14.2 % (12.0-15.0); WHITE BLOOD COUNT 12.2 x10^3/uL (4.8-10.8)
[2022-05-06 09:07] LABS: CALCIUM 9.3 mg/dL (8.5-10.3); CREATININE 3.7 mg/dL (0.4-1.0); PHOSPHORUS 4.3 mg/dL (2.5-4.6); POTASSIUM 4.7 mmol/L (3.5-5.0)
[2022-05-06] MEDS: TIMOLOL 0.5% OPHTH DROPS EACHEYE SCH ×2 (09:46→21:12)
[2022-05-06] MEDS: BRIMONIDINE 0.2% OPHTH DROPS 5 ML EACHEYE SCH ×2 (09:47→21:14)
[2022-05-06] MEDS: APIXABAN 5 MG TABLET PO SCH ×2 (09:50→21:14)
[2022-05-06] MEDS: FLUoxetine 10 MG CAPSULE PO SCH (09:53)
--- NOTE | 2022-05-06 11:15 | PHARMACY PROGRESS NOTE ---
- Best Possible Medication History Admit Date and Time: 05/05/22 1657 Processed by: Pharmacy Medication History completed: Yes Patient Interview: Completed Secondary Source(s): Pharmacy records, Insurance records As the person ultimately responsible for medication therapy, providers are able to order a medication from an existing home medication list in [facility] via the "Reconcile Routine" prior to Confirmation of that medication by child support specialist. Such practice is discouraged except when the physician, in their clinical judgment, deems that a medical need exists for a medication without regard to previous use.
[2022-05-06] MEDS: cloNIDine 0.1 MG TABLET PO SCH ×2 (16:07→21:14)
[2022-05-06] MEDS: ATORVASTATIN 10 MG TABLET PO SCH (21:14)
[2022-05-06] MEDS: ASPIRIN EC 81 MG TABLET PO SCH (21:14)
[2022-05-07] MEDS: SODIUM CHLORIDE FLUSH 0.9% 10 ML SYRINGE IVP SCH ×3 (01:05→17:04)
[2022-05-07] MEDS: LACTATED RINGERS 1,000 ML IV SCH ×5 (01:33→20:54)
[2022-05-07] MEDS: ONDANSETRON 4 MG/2 ML VIAL IVP PRN (05:15)
[2022-05-07 05:26] LABS: BASOPHILS # (AUTO) 0.1 10^3/uL (0.0-0.1); BASOPHILS % (AUTO) 0.5 %; EOSINOPHILS # (AUTO) 0.3 10^3/uL (0.0-0.7); EOSINOPHILS % (AUTO) 1.8 %; HCT - HEMATOCRIT 38.4 % (37.0-47.0); HGB - HEMOGLOBIN 12.9 g/dL (12.0-16.0); LYMPHOCYTES % (AUTO) 26.9 %; MEAN CORPUSCULAR HEMOGLOBIN 29.3 pg (27.0-31.0); MEAN CORPUSCULAR HGB CONC 33.6 g/dL (32.0-36.0); MEAN CORPUSCULAR VOLUME 87.1 fL (81.0-99.0); MEAN PLATELET VOLUME 10.3 fL (7.9-10.8); MONOCYTES # (AUTO) 1.3 10^3/uL (0.0-1.0); MONOCYTES % (AUTO) 8.9 %; NEUTROPHILS # (AUTO) 9.2 10^3/uL (1.5-6.6); NEUTROPHILS % (AUTO) 61.6 %; PLT - PLATELET COUNT 305 10^3/uL (130-450); RED BLOOD COUNT 4.41 10^6/uL (4.20-5.40); WHITE BLOOD COUNT 14.9 x10^3/uL (4.8-10.8)
[2022-05-07 05:39] LABS: CALCIUM 9.6 mg/dL (8.5-10.3); CREATININE 2.6 mg/dL (0.4-1.0); PHOSPHORUS 3.7 mg/dL (2.5-4.6); POTASSIUM 3.9 mmol/L (3.5-5.0)
[2022-05-07] MEDS: LABETALOL 100 MG TABLET PO SCH ×3 (05:56→21:08)
--- NOTE | 2022-05-07 08:51 | PROVIDER PROGRESS NOTE ---
Subjective - Prog Note Date Prog Note Date: 05/07/22 - Subjective Subjective: She reports feeling much better and back to her baseline. She had a little nausea this morning with a small amount of emesis but tolerated lunch without any issues. She denies any abdominal pain. She has been urinating without any difficulties. Current Medications - Current Medications Current Medications: Active Medications Acetaminophen (Acetaminophen 325 Mg Tablet) 650 mg PO Q4HR PRN PRN Reason: Pain 1 to 4, or Fever Last Admin: 05/05/22 21:57 Dose: 650 mg Apixaban (Apixaban 5 Mg Tablet) 5 mg PO BID [facility] Last Admin: 05/06/22 21:14 Dose: 5 mg Aspirin (Aspirin Ec 81 Mg Tablet) 81 mg PO QPM [facility] Last Admin: 05/06/22 21:14 Dose: 81 mg Atorvastatin Calcium (Atorvastatin 10 Mg Tablet) 20 mg PO QPM [facility] Last Admin: 05/06/22 21:14 Dose: 20 mg Brimonidine Tartrate (Brimonidine 0.2% Ophth Drops 5 Ml) 1 drops EACHEYE BID [facility] Last Admin: 05/06/22 21:14 Dose: 1 drops Clonidine HCl (Clonidine 0.1 Mg Tablet) 0.1 mg PO BID [facility] Last Admin: 05/06/22 21:14 Dose: 0.1 mg Fluoxetine HCl (Fluoxetine 10 Mg Capsule) 40 mg PO DAILY [facility] Last Admin: 05/06/22 09:53 Dose: 40 mg Lactated Ringer's (Lr) 1,000 mls @ 150 mls/hr IV .Q6H40M [facility] Last Admin: 05/07/22 08:22 Dose: 150 mls/hr Labetalol HCl (Labetalol 100 Mg Tablet) 600 mg PO TID [facility] Last Admin: 05/07/22 05:56 Dose: 600 mg Ondansetron HCl (Ondansetron Odt 4 Mg Tablet) 4 mg TL Q6HR PRN PRN Reason: Nausea / Vomiting Ondansetron HCl (Ondansetron 4 Mg/2 Ml Vial) 4 mg IVP Q6HR PRN PRN Reason: Nausea / Vomiting Last Admin: 05/07/22 05:15 Dose: 4 mg Sodium Chloride (Sodium Chloride Flush 0.9% 10 Ml Syringe) 10 ml IVP PRN PRN PRN Reason: NEEDED PER PROVIDER ORDERS Sodium Chloride (Sodium Chloride Flush 0.9% 10 Ml Syringe) 10 ml IVP 0100,0900,1700 [facility] Last Admin: 05/07/22 05:15 Dose: 10 ml Timolol Maleate (Timolol 0.5% Ophth Drops) 1 drops EACHEYE BID [facility] Last Admin: 05/06/22 21:12 Dose: 1 drops Brimonidine Tartrate/Timolol [Combigan 0.2%-0.5% Eye Drops] 1 drops EACHEYE BID 04/24/19 Cyclobenzaprine HCl 5 mg PO TID 04/24/19 Fluoxetine HCl [Prozac] 40 mg PO DAILY 04/24/19 Gabapentin [Neurontin] 800 mg PO TID 04/24/19 Labetalol [Trandate] 600 mg PO BID 04/24/19 Atorvastatin [Lipitor] 20 mg PO QPM 09/26/19 Clonidine HCl [Clonidine HCl ER] 0.1 mg PO QPM 09/26/19 Lisinopril [Zestril] 15 mg PO QPM 05/05/22 Rivaroxaban [Xarelto] 20 mg PO QDDINNER 05/05/22 Objective - Vital Signs/Intake & Output Reviewed Vital Signs: Yes Vital Signs: Vital Signs x48h Temp Pulse Resp BP Pulse Ox 05/07/22 05:57 37.3 C 70 17 174/95 H 94 Intake & Output: Intake & Output 05/04/22 05/05/22 05/06/22 05/07/22 23:59 23:59 23:59 23:59 Intake Total 1402.5 5778.5 1930 Output Total 1000 2300 100 Balance 402.5 3478.5 1830 - Objective General Appearance: positive: No acute distress, Alert Eyes Bilateral: positive: Normal inspection, Conjunctivae nml ENT: positive: ENT inspection nml Respiratory: positive: No respiratory distress. negative: Wheezes Cardiovascular: positive: Regular rate & rhythm. negative: Tachycardia Abdomen: positive: Non-tender, No distention. negative: Tenderness Extremities: positive: No pedal edema Neurologic/Psychiatric: negative: Disoriented to person, Disoriented to place - Lab Results Fish Bones: 05/07/22 04:54 05/07/22 04:54 Other Labs: Lab Results x24hrs 05/07/22 05/07/22 05/06/22 Range/Units 04:54 04:54 08:45 WBC 14.9 H (4.8-10.8) x10^3/uL RBC 4.41 (4.20-5.40) 10^6/uL Hgb 12.9 (12.0-16.0) g/dL Hct 38.4 (37.0-47.0) % MCV 87.1 (81.0-99.0) fL MCH 29.3 (27.0-31.0) pg MCHC 33.6 (32.0-36.0) g/dL RDW 14.0 (12.0-15.0) % Plt Count 305 (130-450) 10^3/uL MPV 10.3 (7.9-10.8) fL Neut # (Auto) 9.2 H (1.5-6.6) 10^3/uL Lymph # (Auto) 4.0 H (1.5-3.5) 10^3/uL [place] # (Auto) 1.3 H (0.0-1.0) 10^3/uL Eos # (Auto) 0.3 (0.0-0.7) 10^3/uL Baso # (Auto) 0.1 (0.0-0.1) 10^3/uL Absolute Nucleated RBC 0.00 x10^3/uL Nucleated RBC % 0.0 /100WBC Sodium 140 140 (135-145) mmol/L Potassium 3.9 4.7 (3.5-5.0) mmol/L Chloride 103 103 (101-111) mmol/L Carbon Dioxide 27 29 (21-32) mmol/L Anion Gap 10.0 8.0 (6-13) BUN 49 H 65 H (6-20) mg/dL Creatinine 2.6 H 3.7 H (0.4-1.0) mg/dL Estimated GFR (MDRD) 19 L 13 L (>89) Glucose 114 H 138 H (70-100) mg/dL Calcium 9.6 9.3 (8.5-10.3) mg/dL Phosphorus 3.7 4.3 (2.5-4.6) mg/dL 05/06/22 Range/Units 08:45 WBC 12.2 H (4.8-10.8) x10^3/uL RBC 4.51 (4.20-5.40) 10^6/uL Hgb 13.3 (12.0-16.0) g/dL Hct 39.5 (37.0-47.0) % MCV 87.6 (81.0-99.0) fL MCH 29.5 (27.0-31.0) pg MCHC 33.7 (32.0-36.0) g/dL RDW 14.2 (12.0-15.0) % Plt Count 292 (130-450) 10^3/uL MPV 10.0 (7.9-10.8) fL Neut # (Auto) 7.9 H (1.5-6.6) 10^3/uL Lymph # (Auto) 2.9 (1.5-3.5) 10^3/uL [place] # (Auto) 1.1 H (0.0-1.0) 10^3/uL Eos # (Auto) 0.2 (0.0-0.7) 10^3/uL Baso # (Auto) 0.1 (0.0-0.1) 10^3/uL Absolute Nucleated RBC 0.00 x10^3/uL Nucleated RBC % 0.0 /100WBC Sodium (135-145) mmol/L Potassium (3.5-5.0) mmol/L Chloride (101-111) mmol/L Carbon Dioxide (21-32) mmol/L Anion Gap (6-13) BUN (6-20) mg/dL Creatinine (0.4-1.0) mg/dL Estimated GFR (MDRD) (>89) Glucose (70-100) mg/dL Calcium (8.5-10.3) mg/dL Phosphorus (2.5-4.6) mg/dL Assessment/Plan - Problem List (1) Acute kidney injury Impression: Her acute kidney injury related to volume depletion with diarrhea and vomiting which has since resolved. Her creatinine continues to improve and is down to 2.6 today. Imaging revealed no evidence of obstruction. We will continue another day of IV hydration and the plan will be to discharge her home tomorrow. We will still continue to hold her home lisinopril. (2) Vomiting and diarrhea Impression: Suspect this was related to gastroenteritis. Although she did have a small amount of emesis this morning, she feels much better and tolerated lunch. Continue with Zofran as needed. (3) Hypertension Impression: Her blood pressures been quite difficult to control. We have increased her labetalol to 600 mg 3 times daily. We added clonidine as well. She has multiple allergies and hypertensives but we will look to resume her lisinopril when the acute kidney injury is resolved. The plan will be to discharge her on labetalol, clonidine, lisinopril. (4) History of CVA (cerebrovascular accident) Impression: This is secondary to antiphospholipid syndrome and she has residual right-sided deficits which are stable. We have resumed her home anticoagulation. (5) History of antiphospholipid syndrome Impression: Stable. We have resumed her home anticoagulation. (6) Depression Impression: We are continuing her home fluoxetine.
[2022-05-07] MEDS: BRIMONIDINE 0.2% OPHTH DROPS 5 ML EACHEYE SCH ×2 (09:04→21:07)
[2022-05-07] MEDS: APIXABAN 5 MG TABLET PO SCH ×2 (09:04→20:58)
[2022-05-07] MEDS: TIMOLOL 0.5% OPHTH DROPS EACHEYE SCH ×2 (09:04→21:06)
[2022-05-07] MEDS: FLUoxetine 10 MG CAPSULE PO SCH (09:05)
[2022-05-07] MEDS: cloNIDine 0.1 MG TABLET PO SCH ×2 (09:05→21:05)
[2022-05-07] MEDS ORDERED: LABETALOL 20 MG/4 ML SYRINGE IVP ONE (17:11)
[2022-05-07] MEDS: ATORVASTATIN 10 MG TABLET PO SCH (21:04)
[2022-05-07] MEDS: ASPIRIN EC 81 MG TABLET PO SCH (21:08)
[2022-05-08] MEDS: SODIUM CHLORIDE FLUSH 0.9% 10 ML SYRINGE IVP SCH ×3 (01:00→21:44)
[2022-05-08] MEDS: ASPIRIN EC 81 MG TABLET PO SCH ×2 (02:04→21:54)
[2022-05-08] MEDS: LACTATED RINGERS 1,000 ML IV SCH (03:13)
[2022-05-08 05:21] LABS: BASOPHILS # (AUTO) 0.1 10^3/uL (0.0-0.1); BASOPHILS % (AUTO) 0.7 %; EOSINOPHILS # (AUTO) 0.3 10^3/uL (0.0-0.7); EOSINOPHILS % (AUTO) 2.1 %; HCT - HEMATOCRIT 37.4 % (37.0-47.0); HGB - HEMOGLOBIN 12.8 g/dL (12.0-16.0); LYMPHOCYTES # (AUTO) 3.8 10^3/uL (1.5-3.5); LYMPHOCYTES % (AUTO) 26.8 %; MEAN CORPUSCULAR HEMOGLOBIN 29.6 pg (27.0-31.0); MEAN CORPUSCULAR HGB CONC 34.2 g/dL (32.0-36.0); MEAN CORPUSCULAR VOLUME 86.6 fL (81.0-99.0); MEAN PLATELET VOLUME 9.8 fL (7.9-10.8); MONOCYTES # (AUTO) 1.3 10^3/uL (0.0-1.0); MONOCYTES % (AUTO) 8.9 %; NEUTROPHILS # (AUTO) 8.6 10^3/uL (1.5-6.6); NEUTROPHILS % (AUTO) 61.1 %; PLT - PLATELET COUNT 306 10^3/uL (130-450); RED BLOOD COUNT 4.32 10^6/uL (4.20-5.40); RED CELL DISTRIBUTION WIDTH 13.5 % (12.0-15.0); WHITE BLOOD COUNT 14.1 x10^3/uL (4.8-10.8)
[2022-05-08] MEDS: LABETALOL 100 MG TABLET PO SCH ×3 (05:28→21:52)
[2022-05-08 05:30] LABS: CALCIUM 9.7 mg/dL (8.5-10.3); CREATININE 2.2 mg/dL (0.4-1.0); POTASSIUM 3.7 mmol/L (3.5-5.0)
[2022-05-08] MEDS: ONDANSETRON 4 MG/2 ML VIAL IVP PRN (06:48)
[2022-05-08] MEDS ORDERED: LABETALOL 20 MG/4 ML SYRINGE IVP ONE (07:26)
--- NOTE | 2022-05-08 08:08 | PROVIDER PROGRESS NOTE ---
Subjective - Prog Note Date Prog Note Date: 05/08/22 - Subjective Subjective: She reports feeling quite well. She did have episode of emesis this morning which she feels this is due to the chocolate pudding she ate. She has no headache or blurry vision. She is currently eating breakfast and feeling well. Denies any abdominal pain. No more diarrhea. She confirms all of the allergies to hydralazine, amlodipine, hydrochlorothiazide. Current Medications - Current Medications Current Medications: Active Medications Acetaminophen (Acetaminophen 325 Mg Tablet) 650 mg PO Q4HR PRN PRN Reason: Pain 1 to 4, or Fever Last Admin: 05/05/22 21:57 Dose: 650 mg Apixaban (Apixaban 5 Mg Tablet) 5 mg PO BID [facility] Last Admin: 05/07/22 20:58 Dose: 5 mg Aspirin (Aspirin Ec 81 Mg Tablet) 81 mg PO QPM [facility] Last Admin: 05/08/22 02:04 Dose: Not Given Atorvastatin Calcium (Atorvastatin 10 Mg Tablet) 20 mg PO QPM [facility] Last Admin: 05/07/22 21:04 Dose: 20 mg Brimonidine Tartrate (Brimonidine 0.2% Ophth Drops 5 Ml) 1 drops EACHEYE BID [facility] Last Admin: 05/07/22 21:07 Dose: 1 drops Clonidine HCl (Clonidine 0.1 Mg Tablet) 0.2 mg PO BID [facility] Fluoxetine HCl (Fluoxetine 10 Mg Capsule) 40 mg PO DAILY [facility] Last Admin: 05/07/22 09:05 Dose: 40 mg Labetalol HCl (Labetalol 100 Mg Tablet) 800 mg PO TID [facility] Ondansetron HCl (Ondansetron Odt 4 Mg Tablet) 4 mg TL Q6HR PRN PRN Reason: Nausea / Vomiting Ondansetron HCl (Ondansetron 4 Mg/2 Ml Vial) 4 mg IVP Q6HR PRN PRN Reason: Nausea / Vomiting Last Admin: 05/08/22 06:48 Dose: 4 mg Sodium Chloride (Sodium Chloride Flush 0.9% 10 Ml Syringe) 10 ml IVP PRN PRN PRN Reason: NEEDED PER PROVIDER ORDERS Sodium Chloride (Sodium Chloride Flush 0.9% 10 Ml Syringe) 10 ml IVP 0100,0900,1700 [facility] Last Admin: 05/08/22 06:48 Dose: 10 ml Timolol Maleate (Timolol 0.5% Ophth Drops) 1 drops EACHEYE BID [facility] Last Admin: 05/07/22 21:06 Dose: 1 drops Brimonidine Tartrate/Timolol [Combigan 0.2%-0.5% Eye Drops] 1 drops EACHEYE BID 04/24/19 Cyclobenzaprine HCl 5 mg PO TID 04/24/19 Fluoxetine HCl [Prozac] 40 mg PO DAILY 04/24/19 Gabapentin [Neurontin] 800 mg PO TID 04/24/19 Labetalol [Trandate] 600 mg PO BID 04/24/19 Atorvastatin [Lipitor] 20 mg PO QPM 09/26/19 Clonidine HCl [Clonidine HCl ER] 0.1 mg PO QPM 09/26/19 Lisinopril [Zestril] 15 mg PO QPM 05/05/22 Rivaroxaban [Xarelto] 20 mg PO QDDINNER 05/05/22 Objective - Vital Signs/Intake & Output Reviewed Vital Signs: Yes Vital Signs: Vital Signs x48h Pulse Resp BP 05/08/22 06:45 220/110 H 05/08/22 06:44 72 222/113 H 05/08/22 05:49 206/102 H 05/08/22 05:30 69 16 207/123 H 05/08/22 01:00 176/88 H 05/08/22 00:55 73 180/92 H Intake & Output: Intake & Output 05/05/22 05/06/22 05/07/22 05/08/22 23:59 23:59 23:59 23:59 Intake Total 1402.5 5778.5 5044 1697.5 Output Total 1000 2300 3300 2300 Balance 402.5 3478.5 1744 -602.5 - Objective General Appearance: positive: No acute distress, Alert Eyes Bilateral: positive: Conjunctivae nml ENT: positive: ENT inspection nml Neck: positive: Nml inspection Respiratory: positive: No respiratory distress. negative: Wheezes Cardiovascular: positive: Regular rate & rhythm, No murmur. negative: Tachycardia Abdomen: positive: Non-tender, No distention. negative: Tenderness Skin: positive: Warm, Dry Extremities: positive: No pedal edema Neurologic/Psychiatric: negative: Disoriented to person, Disoriented to place - Lab Results Fish Bones: 05/08/22 04:57 05/08/22 04:57 Other Labs: Lab Results x24hrs 05/08/22 05/08/22 05/07/22 Range/Units 04:57 04:57 09:50 WBC 14.1 H (4.8-10.8) x10^3/uL RBC 4.32 (4.20-5.40) 10^6/uL Hgb 12.8 (12.0-16.0) g/dL Hct 37.4 (37.0-47.0) % MCV 86.6 (81.0-99.0) fL MCH 29.6 (27.0-31.0) pg MCHC 34.2 (32.0-36.0) g/dL RDW 13.5 (12.0-15.0) % Plt Count 306 (130-450) 10^3/uL MPV 9.8 (7.9-10.8) fL Neut # (Auto) 8.6 H (1.5-6.6) 10^3/uL Lymph # (Auto) 3.8 H (1.5-3.5) 10^3/uL [place] # (Auto) 1.3 H (0.0-1.0) 10^3/uL Eos # (Auto) 0.3 (0.0-0.7) 10^3/uL Baso # (Auto) 0.1 (0.0-0.1) 10^3/uL Absolute Nucleated RBC 0.00 x10^3/uL Nucleated RBC % 0.0 /100WBC Sodium 141 (135-145) mmol/L Potassium 3.7 (3.5-5.0) mmol/L Chloride 101 (101-111) mmol/L Carbon Dioxide 28 (21-32) mmol/L Anion Gap 12.0 (6-13) BUN 38 H (6-20) mg/dL Creatinine 2.2 H (0.4-1.0) mg/dL Estimated GFR (MDRD) 23 L (>89) Glucose 111 H (70-100) mg/dL Calcium 9.7 (8.5-10.3) mg/dL Urine Sodium 60.0 mmol/L Assessment/Plan - Problem List (1) Acute kidney injury Impression: Her acute kidney injury related to volume depletion with diarrhea and vomiting which has since resolved. Her creatinine continues to improve and is down to 2 .2 today. Imaging revealed no evidence of obstruction. Given the improvement in her renal function bleeding p.o., we will discontinue IV fluids. We will continue to hold her home lisinopril despite her difficult to control blood pressure given the elevated creatinine but I hope we can resume this shortly. (2) Hypertensive urgency Impression: Her blood pressure remains quite elevated with systolics in the 220s and diastolics in the 110s. She received IV labetalol yesterday. She still remains quite hypertensive. We have increase labetalol to 800 mg 3 times daily. We started her on clonidine and we will increase this to 0.2 mg twice daily. We are holding home lisinopril due to the acute kidney injury. She has multiple allergies to hydralazine, amlodipine, hydrochlorothiazide so we cannot use these medications. The plan at this point in time is to ensure her blood pressure is better controlled before discharging home. We will order a renal artery duplex to evaluate for renal artery stenosis. I am hopeful we can resume her lisinopril tomorrow if renal function continues to improve. We can also add spironolactone. (3) Vomiting and diarrhea Impression: This is felt be secondary to gastroenteritis. She did have another episode of emesis this morning which may be due to her elevated blood pressure although she denies any headache, blurry vision, nausea. She is currently eating breakfast and tolerating this well. We will continue with Zofran as needed for nausea. (4) Hypertension Impression: She is hypertensive as mentioned above. We will continue to manage her elevated blood pressure as mentioned above. (5) History of CVA (cerebrovascular accident) Impression: This is secondary to antiphospholipid syndrome and she has residual right-sided deficits which are stable. We have resumed her home anticoagulation. (6) History of antiphospholipid syndrome Impression: Stable. We have resumed her home anticoagulation. (7) Depression Impression: We are continuing her home fluoxetine.
[2022-05-08] MEDS: TIMOLOL 0.5% OPHTH DROPS EACHEYE SCH ×2 (08:26→21:46)
[2022-05-08] MEDS: FLUoxetine 10 MG CAPSULE PO SCH (08:26)
[2022-05-08] MEDS: BRIMONIDINE 0.2% OPHTH DROPS 5 ML EACHEYE SCH ×2 (08:27→21:44)
[2022-05-08] MEDS: cloNIDine 0.1 MG TABLET PO SCH ×2 (08:27→21:52)
[2022-05-08] MEDS: APIXABAN 5 MG TABLET PO SCH ×2 (08:28→21:51)
[2022-05-08] MEDS: SODIUM CHLORIDE FLUSH 0.9% 10 ML SYRINGE IVP PRN (08:29)
--- NOTE | 2022-05-08 18:51 | Discharge Plan ---
Discharge Plan Problem Reviewed?: Yes Disposition: Home, Self Care Condition: Stable Prescriptions: cloNIDine [Catapres] 0.2 mg PO BID 30 Days #120 tablet Labetalol [Trandate] 800 mg PO TID 30 Days #720 tablet Diet: Low Sodium Activity Restrictions: Activity as Tolerated Health Concerns: You were admitted to the hospital because of dehydration due to the vomiting and diarrhea which caused you to have a problem with your kidneys. We treated you with IV fluids and your kidney function improved each day and is now nearly back to normal. We did note that your blood pressure has been quite difficult to control and we adjusted your blood pressure medications as mentioned below. We feel that ultimately your diarrhea and vomiting was related to a stomach bug. Plan of Treatment: Please begin to take labetalol 800 mg 3 times a day. Please also begin to take clonidine 0.2 mg twice a day. You can continue to take your Xarelto this evening. This is your blood thinner. Please stop taking the lisinopril until you follow-up with your primary care physician to ensure that your kidney numbers are stable. A low sodium diet of 2000 mg is recommended to help control your blood pressure. We did an ultrasound of your renal arteries to look for any blockage. The results of this are still pending but you can follow-up with your primary care physician for results of this. Assessment: The patient expressed understanding of the treatment plan. Additional Instructions or Follow Up instructions: Please follow-up with Dr. Hinds within the week to have labs obtained to make sure that your kidney function is stable. Please also continue to check your blood pressure at home and make a log of it. Dr. Hinds will likely need to adjust your blood pressure medication further. No Smoking: If you smoke, Please STOP! Call for help. Follow-up with: Louis Hinds MD [Primary Care Provider] -
[2022-05-08] MEDS: ATORVASTATIN 10 MG TABLET PO SCH (21:51)
[2022-05-09] MEDS: SODIUM CHLORIDE FLUSH 0.9% 10 ML SYRINGE IVP SCH ×2 (00:52→09:03)
[2022-05-09] MEDS: LABETALOL 100 MG TABLET PO SCH (05:03)
[2022-05-09 05:46] LABS: BASOPHILS # (AUTO) 0.1 10^3/uL (0.0-0.1); BASOPHILS % (AUTO) 0.7 %; EOSINOPHILS # (AUTO) 0.3 10^3/uL (0.0-0.7); EOSINOPHILS % (AUTO) 2.4 %; HCT - HEMATOCRIT 37.6 % (37.0-47.0); HGB - HEMOGLOBIN 12.9 g/dL (12.0-16.0); LYMPHOCYTES % (AUTO) 27.7 %; MEAN CORPUSCULAR HEMOGLOBIN 29.5 pg (27.0-31.0); MEAN CORPUSCULAR HGB CONC 34.3 g/dL (32.0-36.0); MEAN CORPUSCULAR VOLUME 85.8 fL (81.0-99.0); MONOCYTES % (AUTO) 7.1 %; NEUTROPHILS # (AUTO) 8.9 10^3/uL (1.5-6.6); NEUTROPHILS % (AUTO) 61.9 %; PLT - PLATELET COUNT 332 10^3/uL (130-450); RED BLOOD COUNT 4.38 10^6/uL (4.20-5.40); RED CELL DISTRIBUTION WIDTH 13.3 % (12.0-15.0); WHITE BLOOD COUNT 14.3 x10^3/uL (4.8-10.8)
[2022-05-09 05:52] LABS: CALCIUM 9.9 mg/dL (8.5-10.3); POTASSIUM 3.3 mmol/L (3.5-5.0)
[2022-05-09] MEDS ORDERED: POTASSIUM CHLORIDE 20 MEQ TABLET PO ONE (07:27)
[2022-05-09] MEDS: APIXABAN 5 MG TABLET PO SCH (08:58)
[2022-05-09] MEDS: FLUoxetine 10 MG CAPSULE PO SCH (08:58)
[2022-05-09] MEDS: cloNIDine 0.1 MG TABLET PO SCH (08:59)
[2022-05-09] MEDS: TIMOLOL 0.5% OPHTH DROPS EACHEYE SCH (09:05)
[2022-05-09] MEDS: BRIMONIDINE 0.2% OPHTH DROPS 5 ML EACHEYE SCH (09:06)
--- NOTE | 2022-05-09 09:24 | DISCHARGE SUMMARY ---
Discharge Summary Admit Date: 05/05/22 Discharge Date: 05/09/22 Discharging Provider: Jack Mata Primary Care Provider: Louis Hinds Code Status: Attempt Resuscitation Condition at Discharge: Stable Discharge Disposition: 01 Home, Self Care - DIAGNOSES Admission Diagnoses: Acute kidney injury Vomiting and diarrhea Hypertension History of CVA History of antiphospholipid syndrome Depression Discharge Diagnoses with Status of Each Condition: Acute kidney injury - improved. Hypertensive urgency - resolved. Vomiting and diarrhea - resolved. Hypertension - stable. History of CVA - stable. History of antiphospholipid syndrome - stable. Depression - stable. - HPI History of Present Illness: This is a 52-year-old female with a past medical history significant for stroke with residual right-sided deficit, antiphospholipid syndrome, hypertension, depression who presents today after having abnormal labs on outpatient basis. The patient states she has been feeling unwell for about the past week or so. She developed diarrhea over the weekend. She then began to feel fatigued and generally weak. She has had nausea and vomiting and limited p.o. intake. She reports her blood pressure has been quite labile ranging in the 180 systolic down to the 60s systolic. Given she was feeling sick over the week and had progressive weakness, she saw her primary care physician yesterday. She had labs done today and she was told to come to the emergency department because her labs were abnormal and showed signs of dehydration and kidney problems. She reports occasional abdominal pain. States has not had any diarrhea today and her last bowel movement was yesterday. She does have 1 meal a day and to her knowledge, she believes she drinks enough fluids. She does take lisinopril but not take it today. She is also on Lasix which she has not yet taken today. The last dose of her Xarelto was yesterday evening. She feels just generally weak and feels like her speech is a little bit more slurred than usual. Her significant other states that she is premature at her baseline with regards to her speech as she has had difficulty with that due to her prior strokes. Given she was found to have acute kidney injury with a creatinine over 5 on outpatient basis, she had a CT Emergency Department which showed no evidence of obstruction. Given this, she received IV fluids and medicine was consulted for admission. - HOSPITAL COURSE Hospital Course: The patient was admitted to the floor for acute kidney injury which was secondary to vomiting and diarrhea. We suspect she likely had a gastroenteritis which was a cause of her GI symptoms. Her acute kidney injury was related to volume depletion due to the gastroenteritis. She was treated with IV fluids with improvement in her renal function. Imaging revealed no evidence of obstruction. On day of discharge, her creatinine is down to 2.0. Labs from the last year revealed a creatinine of 1.4 so she likely has some chronic kidney disease. This may be due to poorly controlled hypertension. Her hospitalization was prolonged by 1 day because her blood pressure has been quite difficult to control. We ultimately ended up increasing her labetalol to 800 mg 3 times daily and the clonidine to 0.2 mg twice daily. We have continue to hold her home lisinopril until we ensure her renal function is truly back to baseline. I did give a warm handoff to her primary care physician and the plan will be to follow-up within 1-2 weeks for labs to ensure her renal function is stable before resuming lisinopril. We did order a renal artery duplex to look for renal artery stenosis and the results of this are pending. This was discussed with her primary care physician and the patient. - ALLERGIES Allergies/Adverse Reactions: Allergies Allergy/AdvReac Type Severity Reaction Status Date / Time amitriptyline Allergy Anaphylaxis Verified 05/05/22 16:05 amlodipine Allergy Rash Verified 05/05/22 16:05 clindamycin Allergy Nausea Verified 05/05/22 16:05 diphenhydramine Allergy Anaphylaxis Verified 05/05/22 16:05 [From Benadryl] hydralazine Allergy Hallucinati Verified 05/05/22 16:05 ons hydrochlorothiazide Allergy Anaphylaxis Verified 05/05/22 16:05 Penicillins Allergy Anaphylaxis Verified 05/05/22 16:05 - MEDICATIONS Home Medications: Ambulatory Orders Medication Instructions Recorded Confirmed Brimonidine Tartrate/Timolol 1 drops EACHEYE BID 04/24/19 05/06/22 [Combigan 0.2%-0.5% Eye Drops] Cyclobenzaprine HCl 5 mg PO TID 04/24/19 05/06/22 Fluoxetine HCl [Prozac] 40 mg PO DAILY 04/24/19 05/06/22 Gabapentin [Neurontin] 800 mg PO TID 04/24/19 05/06/22 Atorvastatin [Lipitor] 20 mg PO QPM 09/26/19 05/06/22 Rivaroxaban [Xarelto] 20 mg PO QDDINNER 05/05/22 05/06/22 Labetalol [Trandate] 800 mg PO TID 30 Days #720 tablet 05/09/22 cloNIDine [Catapres] 0.2 mg PO BID 30 Days #120 tablet 05/09/22 - PHYSICAL EXAM AT DISCHARGE General Appearance: positive: No acute distress, Alert Eyes Bilateral: positive: Normal inspection, Conjunctivae nml ENT: positive: ENT inspection nml Neck: positive: Nml inspection Respiratory: positive: No respiratory distress. negative: Wheezes, Rales Cardiovascular: positive: Regular rate & rhythm. negative: Tachycardia Abdomen: positive: Non-tender, No distention. negative: Tenderness Skin: positive: Warm, Dry Extremities: positive: No pedal edema Neurologic/Psychiatric: positive: Other (4 out of 5 motor strength in her right upper and right lower extremities.). negative: Disoriented to person, Disoriented to place Physical Exam Other/Comments: Vital Signs - 24 hr 05/08/22 05/08/22 05/08/22 16:34 17:08 23:47 Temperature 37.1 C 37.0 C Heart Rate [ 66 67 65 Brachial] Respiratory 16 18 Rate Blood Pressure 171/105 H 159/106 H 184/105 H [Left Brachial artery] Blood Pressure 162/108 H 169/110 H [Right Brachial artery] O2 Saturation 96 95 05/09/22 05/09/22 05/09/22 05:20 08:59 10:14 Temperature 36.6 C 37.1 C 36.5 C Heart Rate [ 64 65 58 L Brachial] Respiratory 16 18 16 Rate Blood Pressure 149/97 H 135/91 H [Left Brachial artery] Blood Pressure 162/100 H 138/94 H [Right Brachial artery] O2 Saturation 94 99 95 Oxygen O2 Source Room air - LABS Result Diagrams: 05/09/22 04:52 05/09/22 04:52 - DIAGNOSTIC IMAGING Diagnostic Imaging Results: Final report reviewed - FOLLOW UP Follow Up: I did speak with her primary care physician and the plan will be to follow-up within 1 to 2 weeks for labs to ensure her renal function is stable. She will also follow-up for results of the renal artery duplex. Patient is to hold her home lisinopril until she follows up with her primary care physician. - TIME SPENT Time Spent in Discharge (Minutes): 38
[2022-05-09 10:15] VITALS: BP 135/91
[2022-05-09] MEDS: SODIUM CHLORIDE FLUSH 0.9% 10 ML SYRINGE IVP PRN (10:29)
--- NOTE | 2022-05-09 16:49 | Ultrasound Report ---
PROCEDURE: Arterial Visceral Complete INDICATIONS: Resistant hypertension. TECHNIQUE: Real time scanning was performed of both kidneys, followed by Color and pulsed Doppler in terrogation of the renal vessels. COMPARISON: None FINDINGS: Aortic peak systolic velocity: 53 cm/s. Right side: Hooker-scale imaging: Kidney is 10.6 cm long. No hydronephrosis. No nephrolithiasis. Renal cortex i s normal in echogenicity. No suspicious solid renal masses. Proximal renal artery peak systolic velocity: 65 cm/s. Mid renal artery peak systolic velocity: 129 cm/s. Distal renal artery peak systolic velocity: 94 cm/s. Renal vein: Patent, without thrombus. Peak renal/aortic ratio (RAR): 2.4. Left side: Hooker-scale imaging: Kidney is 10.2 cm long. No hydronephrosis. No nephrolithiasis. Renal cortex is normal in echogenicity. No suspicious solid renal masses. Proximal renal artery peak systolic velocity: 69 cm/s. Mid-renal artery peak systolic velocity: 114 cm/s. Distal renal artery peak systolic velocity: 127 cm/s. Renal vein: Patent, without thrombus. Peak renal/aortic ratio (RAR): 2.4. IMPRESSION: No evidence of renal artery stenosis bilaterally. Reviewed by: Stephon Ling MD on 05/09/2022 4:48 PM PDT Approved by: Stephon Ling MD on 05/09/2022 4:48 PM PDT Station ID: [id number]
== END 2022-05-09 11:08 | disposition home or self-care (01) | DRG 683 ==
LOC: EDUNIT# → ED 15:56 → MS2 16:58
PROVIDERS: ADMIT Internal Medicine; ATTEND Internal Medicine
DX: N17.9 Acute kidney failure, unspecified (principal); D68.61 Antiphospholipid syndrome; I69.351 Hemiplegia and hemiparesis following cerebral infarction affecting right dominant side; K56.7 Ileus, unspecified; K52.9 Noninfective gastroenteritis and colitis, unspecified; R11.2 Nausea with vomiting, unspecified; E86.0 Dehydration; I16.0 Hypertensive urgency; Z20.822 Contact with and (suspected) exposure to COVID-19; F32.A Depression, unspecified; R10.9 Unspecified abdominal pain; E86.9 Volume depletion, unspecified; I12.9 Hypertensive chronic kidney disease with stage 1 through stage 4 chronic kidney disease, or unspecified chronic kidney disease; N18.9 Chronic kidney disease, unspecified; I69.328 Other speech and language deficits following cerebral infarction; Z79.899 Other long term (current) drug therapy; Z88.8 Allergy status to other drugs, medicaments and biological substances; Z79.01 Long term (current) use of anticoagulants; G60.9 Hereditary and idiopathic neuropathy, unspecified; M54.50 Low back pain, unspecified; G89.29 Other chronic pain; R73.9 Hyperglycemia, unspecified
CPT/HCPCS: 36415; 71045; 74019; 74176; 80048; 80053; 80061; 81003; 83036; 83735; 84100; 84300; 84443; 85025; 87635; 93975; 99284; 99285; A9270; J7120; 81001; 83721; 87086

== ENCOUNTER 2022-05-16 09:28 | Outpatient (CLI) | payer MEDICAID ==
[2022-05-16 12:13] LABS: CALCIUM 9.2 mg/dL (8.5-10.3); CREATININE 1.7 mg/dL (0.4-1.0); PHOSPHORUS 3.8 mg/dL (2.5-4.6); POTASSIUM 4.6 mmol/L (3.5-5.0); URIC ACID 4.5 mg/dL (2.6-7.2)
== END 2022-05-16 09:29 | disposition home or self-care (01) ==
LOC: LAB.N 09:28
PROVIDERS: ATTEND Family Medicine
DX: I10 Essential (primary) hypertension (principal); N17.0 Acute kidney failure with tubular necrosis; I69.351 Hemiplegia and hemiparesis following cerebral infarction affecting right dominant side
CPT/HCPCS: 36415; 80048; 83735; 84100; 84550

== ENCOUNTER 2022-09-20 09:00 | Outpatient (CLI) | payer MEDICAID ==
[2022-09-20 12:08] LABS: BASOPHILS # (AUTO) 0.1 10^3/uL (0.0-0.1); BASOPHILS % (AUTO) 0.8 %; EOSINOPHILS # (AUTO) 0.3 10^3/uL (0.0-0.7); EOSINOPHILS % (AUTO) 2.4 %; HCT - HEMATOCRIT 43.1 % (37.0-47.0); LYMPHOCYTES # (AUTO) 4.5 10^3/uL (1.5-3.5); LYMPHOCYTES % (AUTO) 34.2 %; MEAN CORPUSCULAR HEMOGLOBIN 29.4 pg (27.0-31.0); MEAN CORPUSCULAR HGB CONC 32.5 g/dL (32.0-36.0); MEAN CORPUSCULAR VOLUME 90.4 fL (81.0-99.0); MEAN PLATELET VOLUME 10.4 fL (7.9-10.8); MONOCYTES # (AUTO) 1.1 10^3/uL (0.0-1.0); NEUTROPHILS # (AUTO) 7.1 10^3/uL (1.5-6.6); NEUTROPHILS % (AUTO) 54.4 %; PLT - PLATELET COUNT 305 10^3/uL (130-450); RED BLOOD COUNT 4.77 10^6/uL (4.20-5.40); RED CELL DISTRIBUTION WIDTH 13.3 % (12.0-15.0); WHITE BLOOD COUNT 13.1 x10^3/uL (4.8-10.8)
[2022-09-20 12:26] LABS: ALBUMIN 4.4 g/dL (3.2-5.5); ALBUMIN/GLOBULIN RATIO 1.5 (1.0-2.2); ALKALINE PHOSPHATASE 119 IU/L (42-121); ALT ALANINE AMINOTRANSFERASE 29 IU/L (10-60); AST ASPARTATE AMINOTRANSFERASE 30 IU/L (10-42); BILIRUBIN,TOTAL 0.5 mg/dL (0.2-1.0); BUN - BLOOD UREA NITROGEN 23 mg/dL (6-20); CALCIUM 9.2 mg/dL (8.5-10.3); CARBON DIOXIDE - CO2 27 mmol/L (21-32); CHLORIDE 101 mmol/L (101-111); CHOL/HDL RATIO 6.7 (<4.4); CHOLESTEROL 193 mg/dL; CREATININE 1.1 mg/dL (0.4-1.0); GFR - MDRD 52 (>89); GLUCOSE 109 mg/dL (70-100); HDL CHOLESTEROL 29 mg/dL; POTASSIUM 4.1 mmol/L (3.5-5.0); SODIUM 138 mmol/L (135-145); TOTAL PROTEIN 7.4 g/dL (6.7-8.2); TRIGLYCERIDES 415 mg/dL
[2022-09-20 12:38] LABS: THYROID STIMULATING HORMONE 9.7 uIU/mL (0.34-5.60)
[2022-09-20 12:46] LABS: ESTIMATED AVERAGE GLUCOSE 117 mg/dL (70-100); HEMOGLOBIN A1c% 5.7 % (4.27-6.07)
[2022-09-20 13:08] LABS: LDL CHOLESTEROL,DIRECT 94 mg/dL; LDLD/HDL RATIO 3.2 (<4.4)
[2022-09-20 13:15] LABS: FREE T4 (FREE THYROXINE) 0.73 ng/dL (0.58-1.64)
== END 2022-09-20 09:01 | disposition home or self-care (01) ==
LOC: LAB.N 09:00
PROVIDERS: ATTEND Family Medicine
DX: I10 Essential (primary) hypertension (principal); N17.0 Acute kidney failure with tubular necrosis; I69.311 Memory deficit following cerebral infarction; R73.9 Hyperglycemia, unspecified; I69.351 Hemiplegia and hemiparesis following cerebral infarction affecting right dominant side; E78.00 Pure hypercholesterolemia, unspecified; D68.61 Antiphospholipid syndrome
CPT/HCPCS: 36415; 80053; 80061; 83036; 83721; 84439; 84443; 85025

== ENCOUNTER 2022-11-10 10:46 | Inpatient (IN) | payer MEDICAID ==
[2022-11-10] MEDS ORDERED: ONDANSETRON 4 MG/2 ML VIAL IVP STA ×2 (11:07→13:57)
[2022-11-10] MEDS ORDERED: SODIUM CHLORIDE 0.9% 1,000 ML IV STA ×3 (11:07→13:58)
[2022-11-10 11:49] LABS: BASOPHILS % (AUTO) 0.4 %; EOSINOPHILS % (AUTO) 0.7 %; HCT - HEMATOCRIT 42.3 % (37.0-47.0); HGB - HEMOGLOBIN 14.4 g/dL (12.0-16.0); LYMPHOCYTES % (AUTO) 24.1 %; MEAN CORPUSCULAR HEMOGLOBIN 29.3 pg (27.0-31.0); MEAN CORPUSCULAR VOLUME 86.2 fL (81.0-99.0); MEAN PLATELET VOLUME 10.1 fL (7.9-10.8); MONOCYTES % (AUTO) 5.9 %; NEUTROPHILS % (AUTO) 68.5 %; PLT - PLATELET COUNT 323 10^3/uL (130-450); RED BLOOD COUNT 4.91 10^6/uL (4.20-5.40); RED CELL DISTRIBUTION WIDTH 13.7 % (12.0-15.0); WHITE BLOOD COUNT 22.1 x10^3/uL (4.8-10.8)
[2022-11-10 11:55] LABS: ABNORMAL LYMPHS % (MANUAL) 0 %; BAND NEUTROPHILS % (MANUAL) 0 %
[2022-11-10 12:05] LABS: ALBUMIN 4.4 g/dL (3.2-5.5); ALBUMIN/GLOBULIN RATIO 1.5 (1.0-2.2); BILIRUBIN,TOTAL 1.2 mg/dL (0.2-1.0); CALCIUM 9.2 mg/dL (8.5-10.3); CREATININE 6.1 mg/dL (0.4-1.0); POTASSIUM 3.8 mmol/L (3.5-5.0); TOTAL PROTEIN 7.4 g/dL (6.7-8.2)
[2022-11-10 12:11] LABS: DIFFERENTIAL COMMENT MANUAL DIFFERENTIAL; LYMPHOCYTES # (MANUAL) 4.2 10^3/uL (1.5-3.5); LYMPHOCYTES % (MANUAL) 19 %; MONOCYTES # (MANUAL) 1.1 10^3/uL (0.0-1.0); NEUTROPHILS # (MANUAL) 16.8 10^3/uL (1.5-6.6); PLATELET ESTIMATE, MANUAL NORMAL (130-450,000) (NORMAL); PLATELET MORPHOLOGY NORMAL APPEARANCE (NORMAL); RBC MORPHOLOGY (MULTIPLE) NORMAL APPEARANCE (NORMAL)
[2022-11-10] MEDS ORDERED: ONDANSETRON 4 MG/2 ML VIAL ONE (12:40)
--- NOTE | 2022-11-10 13:12 | ED Physician Documentation ---
History of Present Illness - Stated complaint Stated Complaint: LOW BP/FEMALE - Chief complaint Chief Complaint: Abd Pain - History obtained from History obtained from: Patient, Family - Additonal information Additional information: The patient comes to the emergency department from primary care chief complaint of nausea vomiting, diarrhea, and dehydration. The symptoms started about 3 days ago, patient states, before which she was doing fine. She states that she initially began with nausea and vomiting, and then the diarrhea started later. Patient states that in the last 3 days, she has had about five 8 ounce cups of water and nothing else. Her states that she was normal before that. The patient states she has not urinated for the last 2 days. She denies any fevers. She has had some chills when she gets nauseated. The patient does report some right lower quadrant abdominal pain and states that her only abdominal surgery is a cholecystectomy. She has no history of chronic kidney disorder, though she did have a similar illness back in April and ended up driving her creatinine up above 5. She never needed dialysis and her kidney function seemingly has returned to normal since. The patient denies any other complaints at this time. No dysuria when she was urinating. No blood in her urine. No blood in her stool. She has a distant history of a stroke in 2000, and has some persistent mild expressive aphasia since. Review of Systems Ten Systems: 10 systems reviewed and negative Constitutional: reports: Reviewed and negative Eyes: reports: Reviewed and negative Ears: reports: Reviewed and negative Nose: reports: Reviewed and negative Throat: reports: Reviewed and negative Cardiac: reports: Reviewed and negative Respiratory: reports: Reviewed and negative GI: reports: Abdominal Pain, Nausea, Vomiting, Diarrhea : reports: Reviewed and negative Skin: reports: Reviewed and negative Musculoskeletal: reports: Reviewed and negative Neurologic: reports: Reviewed and negative Psychiatric: reports: Reviewed and negative Endocrine: reports: Reviewed and negative Immunocompromised: reports: Reviewed and negative PD PAST MEDICAL HISTORY - Past Medical History Cardiovascular: Hypertension Neuro: CVA HEENT: Glaucoma Psych: Depression Musculoskeletal: Other Derm: None - Past Surgical History Past Surgical History: Yes General: Cholecystectomy Ortho: Other - Present Medications Home Medications: Ambulatory Orders Medication Instructions Recorded Confirmed Brimonidine Tartrate/Timolol 1 drops EACHEYE BID 04/24/19 05/06/22 [Combigan 0.2%-0.5% Eye Drops] Cyclobenzaprine HCl 5 mg PO TID 04/24/19 05/06/22 Fluoxetine HCl [Prozac] 40 mg PO DAILY 04/24/19 05/06/22 Gabapentin [Neurontin] 800 mg PO TID 04/24/19 05/06/22 Atorvastatin [Lipitor] 20 mg PO QPM 09/26/19 05/06/22 Rivaroxaban [Xarelto] 20 mg PO QDDINNER 05/05/22 05/06/22 Labetalol [Trandate] 800 mg PO TID 30 Days #720 tablet 05/09/22 cloNIDine [Catapres] 0.2 mg PO BID 30 Days #120 tablet 05/09/22 - Allergies Allergies/Adverse Reactions: Allergies Allergy/AdvReac Type Severity Reaction Status Date / Time amitriptyline Allergy Anaphylaxis Verified 05/05/22 16:05 amlodipine Allergy Rash Verified 05/05/22 16:05 clindamycin Allergy Nausea Verified 05/05/22 16:05 diphenhydramine Allergy Anaphylaxis Verified 05/05/22 16:05 [From Benadryl] hydralazine Allergy Hallucinati Verified 05/05/22 16:05 ons hydrochlorothiazide Allergy Anaphylaxis Verified 05/05/22 16:05 Penicillins Allergy Anaphylaxis Verified 05/05/22 16:05 - Social History Does the pt smoke?: No Smoking Status: Former smoker Does the pt drink ETOH?: No Does the pt have substance abuse?: No - Immunizations Immunizations are current?: Yes - POLST POLST Status: Full Code PD ED PE NORMAL - Vitals Vital signs reviewed: Yes - General General: Alert and oriented X 3, No acute distress, Well developed/nourished - HEENT HEENT: Atraumatic, PERRL, EOMI, Moist mucous membranes - Neck Neck: Supple, no meningeal sign - Cardiac Cardiac: RRR, No murmur, Strong equal pulses - Respiratory Respiratory: No respiratory distress, Clear bilaterally - Abdomen Abdomen: Soft, Non distended, Other (Mild right lower quadrant tenderness, no rebound or guarding.) - Derm Derm: Normal color, Warm and dry, No rash - Extremities Extremities: No deformity, No edema - Neuro Neuro: Alert and oriented X 3, radon inspector 2-12 intact, Other (Grossly intact, with the exception of mild speech delay.) - Psych Psych: Normal mood, Normal affect Results - Vitals Vitals: Vital Signs - 24 hr 11/10/22 10:55 Temperature 37.1 C Heart Rate 75 Respiratory 20 Rate Blood Pressure 94/50 L O2 Saturation 99 Oxygen O2 Source Room air - Labs Labs: Laboratory Tests 11/10/22 11/10/22 11:44 11:44 WBC 22.1 H RBC 4.91 Hgb 14.4 Hct 42.3 MCV 86.2 MCH 29.3 MCHC 34.0 RDW 13.7 Plt Count 323 MPV 10.1 Neut # (Auto) Not Reportable Lymph # (Auto) Not Reportable Fleming # (Auto) Not Reportable Eos # (Auto) Not Reportable Baso # (Auto) Not Reportable Absolute Nucleated RBC Not Reportable Total Counted 100 Band Neuts % (Manual) 0 Abnorm Lymph % (Manual) 0 Nucleated RBC % Not Reportable Neutrophils # (Manual) 16.8 H Lymphocytes # (Manual) 4.2 H Monocytes # (Manual) 1.1 H Eosinophils # (Manual) 0.0 Basophils # (Manual) 0.0 Differential Comment MANUAL DIFFERENTIAL Platelet Estimate NORMAL (130-450,000) Platelet Morphology NORMAL APPEARANCE RBC Morph Micro Appear NORMAL APPEARANCE Sodium 131 L Potassium 3.8 Chloride 92 L Carbon Dioxide 21 Anion Gap 18.0 H BUN 72 H Creatinine 6.1 H Estimated GFR (MDRD) 7 L Glucose 115 H Calcium 9.2 Total Bilirubin 1.2 H AST 34 ALT 29 Alkaline Phosphatase 130 H Total Protein 7.4 Albumin 4.4 Globulin 3.0 Albumin/Globulin Ratio 1.5 Lipase 72 H PD MEDICAL DECISION MAKING - ED course Complexity details: reviewed results, re-evaluated patient, radha barcenas, d/w patient, d/w family ED course: The patient was started on IV fluids and worked up with laboratory studies initially. These did show of significance a white blood cell count of 22.1 and a creatinine of 6.1 with a BUN of 72. I did review the patient's previous records and found that the patient's most recent creatinine in our system was 1.1 at the end of August. I did note the record of her gastroenteritis type illness in April and noted that her creatinines had spiked into the fives at that time, with gradual resolution with IV fluids while admitted. I suspected that the patient was severely dehydrated now, and ordered [id number] liters of IV fluids. Because of her right lower quadrant pain and tenderness and the white blood cell count being significantly elevated, I did order a CT scan of the abdomen and pelvis without contrast, due to the patient's renal failure. This was unremarkable for acute findings. The patient did make a small amount of urine after receiving a total of 2 L of 0.9 normal saline. She was hemodynamically stable here. I spoke with Dr. Jarvis of internal medicine, and she did agree to admit the patient to her service. Departure - Departure Disposition: [facility] DC/Xfer Clinical Impression: Dehydration, Gastroenteritis Acute renal failure Qualifiers: Acute renal failure type: unspecified Qualified Code(s): N17.9 - Acute kidney failure, unspecified Condition: Serious
--- NOTE | 2022-11-10 14:06 | CT Report ---
PROCEDURE: ABDOMEN/PELVIS WO INDICATIONS: leukocytosis, RLQ pain TECHNIQUE: Noncontrast 5 mm thick sections acquired from the diaphragms to the symphysis. 5 mm coronal and sagi ttal reformats were then performed. For radiation dose reduction, the following was used: automated exposure control, adjustment of mA and/or kV according to patient size. COMPARISON: CT of abdomen dated 05/05/2022 and ultrasound of abdomen dated 05/09/2022. FINDINGS: Image quality: Excellent. ABDOMEN: Lung bases: Lung bases are clear. Heart size is mildly enlarged, no pericardial effusion. Solid organs: Liver and spleen are normal in size. Gallbladder is surgically absent. Pancreas is n ormal in contours. 1.4 x 1.2 cm hypodense nodule involving left adrenal gland is seen and measures 13 Hounsfield unit in density likely represent benign lipid rich adrenal adenoma. Kidneys are normal in size, without hydronephrosis. Nonobstructing stones are noted in left kidney measures 2 to 3 mm in s ize. No hydroureter. Peritoneum and bowel: Unenhanced bowel loops demonstrate normal wall thickness and caliber. No free fluid or air. Appendix is visualized in right lower quadrant abdomen best seen on series 6 image 29 and series 3 image 58. No appendiceal wall thickening or periappendiceal fat stranding. Nodes and vessels: No retroperitoneal or mesenteric adenopathy by size criteria. Aorta and inferior vena cava are normal in caliber. Mild to moderate atherosclerotic calcifications in abdominal aorta and bilateral iliac arteries are seen. Miscellaneous: No ventral hernias. PELVIS: Genitourinary: Bladder wall thickness is normal. Miscellaneous: No inguinal hernias or adenopathy. Bones: No suspicious bony lesions. No vertebral body compression fractures. Degenerative disc dise ase throughout lumbar spine is seen most notably at L4-5 level. IMPRESSION: 1. Normal appendix. No evidence of acute appendicitis. No free fluid of free air. 2. No bowel obstruction or abnormal bowel wall thickening. No abscess collection. 3. 1.4 x 1.2 cm hypodense nodule in left adrenal gland likely representing benign lipid rich adrenal adenoma. 4. Nonobstructing left renal calculi. No hydronephrosis or hydroureter. Reviewed by: Ritesh Benavidez MD on 11/10/2022 2:04 PM PST Approved by: Ritesh Benavidez MD on 11/10/2022 2:04 PM PST Station ID: [id number]
[2022-11-10 14:42] LABS: BILIRUBIN,URINE NEGATIVE (NEGATIVE); GLUCOSE, URINE (UA) NEGATIVE (NEGATIVE); KETONES,URINE (UA) NEGATIVE (NEGATIVE); LEUKOCYTE ESTERASE, URINE NEGATIVE (NEGATIVE); NITRITE,URINE NEGATIVE (NEGATIVE); OCCULT BLOOD,URINE SMALL (NEGATIVE); PH,URINE 5.5 PH (5.0-7.5); PROTEIN,URINE 100 mg/dL (NEGATIVE); UROBILINOGEN,URINE 0.2 (NORMAL) E.U./dL (NORMAL)
[2022-11-10 14:44] LABS: CLARITY,URINE SL (CLEAR)
[2022-11-10 14:45] LABS: BACTERIA,URINE Few /HPF (None Seen); CASTS, URINE 0-2 Granular Casts /LPF; SQUAMOUS EPITHELIAL CELL,UR MANY Squamous (<= Few); WBC,URINE 0-3 /HPF (0-5)
[2022-11-10 16:31] LABS: B. PARAPERTUSSIS- RESP PCR PAN NOT DETECTED; B. PERTUSSIS- RESP PCR PANEL NOT DETECTED; C. PNEUMONIAE- RESP PCR PANEL NOT DETECTED; CORONAVIRUS 229E-RESP PCR NOT DETECTED; CORONAVIRUS HKU1-RESP PCR NOT DETECTED; CORONAVIRUS NL63-RESP PCR NOT DETECTED; CORONAVIRUS OC43-RESP PCR NOT DETECTED; HUMAN METAPNEUMOVIRUS NOT DETECTED; INFLUENZA A- RESP PCR PANEL NOT DETECTED; INFLUENZA B - RESP PCR PANEL NOT DETECTED; M. PNEUMONIAE- RESP PCR PANEL NOT DETECTED; PARAINFLUENZA VIRUS 1 NOT DETECTED; PARAINFLUENZA VIRUS 2 NOT DETECTED; PARAINFLUENZA VIRUS 3 NOT DETECTED; PARAINFLUENZA VIRUS 4 NOT DETECTED; RHINOVIRUS/ENTEROVIRUS NOT DETECTED; RSV- RESP PCR PANEL NOT DETECTED; SARS-CoV-2 -RESP PCR PANEL NOT DETECTED
[2022-11-10] MEDS ORDERED: ACETAMINOPHEN 325 MG TABLET PO PRN (18:21)
[2022-11-10] MEDS ORDERED: SODIUM CHLORIDE FLUSH 0.9% 10 ML SYRINGE IVP PRN (18:21)
[2022-11-10] MEDS ORDERED: PROCHLORPERAZINE 10 MG/2 ML VIAL IVP PRN (18:21)
--- NOTE | 2022-11-10 18:36 | HISTORY & PHYSICAL EXAMINATION ---
Chief Complaint - Chief Complaint Chief Complaint: Sent in by PCP due to low BP, has had N/V/D x4 days History of Present Illness - Admitted From Admitted From:: ED - History Obtained From History obtained from: ED provider and the pt and chart review - History of Present Illness HPI Comment/Other: This is a 52-year-old female with a history of antiphospholipid syndrome on Xarelto, prior CVA with mild residual speech difficulty, hypertension which is often labile, and possibl has CKD with baseline creatinine 1.4. In April 2022 she presented with dehydration, elevated creatinine and nausea and vomiting for several days, was treated for gastroenteritis symptomatically and IV fluids and creat improved. The patient presents now after being sent in by her PCP because of low blood pressure. She has had 4 days of nausea, vomiting and diarrhea, she reported that in the those 4 days she had only drank about 5 cups of liquids (8 ounces each). She admits to having no urine output for the past 2 days. There was mild right lower quadrant pain. She saw no blood in her diarrhea. She denies fever or any respiratory symptoms. Her blood pressure was found to be approx imately 90 systolic and PCP advised she come to the ER. In the ER her blood pressure is running also in the 90s. Labs have come back showing she has a creatinine of 6.1 and dark urine with a urinalysis showing a high specific gravity and protein present. She underwent a CT abdomen/pelvis without contrast. This was unremarkable: Normal appendix, no free fluid or free air, no bowel obstruction, no abscess, there is a nodule in the left adrenal gland likely a adenoma and she has nonobstructing left renal calculi but no hydronephrosis or hydroureter or pyelonephritis. The patient received IV Zofran in the ED and has been started on IV fluids, she is on her third liter currently. The ER provider has reached out to the Hospitalist team to have this patient admitted for treating another presumed episode of gastroenteritis causing dehydration and GABE. She moved here from [place] 4 years ago, and reports that she has gotten many episodes of N/V/D, so that she had a port placed, for iv access. She has never been diagnosed with why she gets NV/D so often, but cannot remember if she ever saw a [employer] there. There is no FH of any GI diagnoses or of others with Antiphospholipid syndrome. She is on disability due to her stroke, but she remains active around the house. She lives with her boyfriend. She has been been twice in her past; the first and she is from the second . History - Past Medical History Cardiovascular: reports: Hypertension Respiratory: reports: None Neuro: reports: CVA GI: reports: Other (Hx of recurrent N/V/D, that she calls Gastroenteritis.) : reports: None HEENT: reports: Glaucoma Psych: reports: Depression Musculoskeletal: reports: Other Derm: reports: None MRSA Hx?: No - Past Surgical History General: reports: Cholecystectomy Ortho: reports: Other - Family & Social History Family History: Mother: Alive and Well, CVA/TIA, Hypertension, Seizure Disorder, Father: (Brother had drug abuse), Sister: Alive and Well, Brother: Family History Comment/Other: She reports mother has a history of stroke and suffers from seizure disorder. Her father from dementia and myocardial infarction. Living arrangement: At home Living Situation: With spouse/s.o. Social History Notes: She lives with her significant other, Rik. She states she smoked a pack a day for 22 years but quit in early . She has a history of alcohol use in the past but denies any current use. She does use marijuana on a near daily basis. She claims she was "tested to see if using marijuana gives her the hyperemesis" and says it did not. - Substance History Use: Uses substance without health or social issues: NONE - POLST Patient has POLST: No POLST Status: Full Code Meds/Allgy - Home Medications Home Medications: Ambulatory Orders Medication Instructions Recorded Confirmed Cyclobenzaprine HCl 5 mg PO TID 04/24/19 11/11/22 Fluoxetine HCl [Prozac] 40 mg PO DAILY 04/24/19 11/11/22 Gabapentin [Neurontin] 800 mg PO TID 04/24/19 11/11/22 Rivaroxaban [Xarelto] 20 mg PO QDDINNER 05/05/22 11/11/22 Atorvastatin Calcium 40 mg PO HS 11/11/22 11/11/22 Furosemide [Lasix] 20 mg PO DAILY 11/11/22 11/11/22 Labetalol [Trandate] 700 mg PO TID 11/11/22 11/11/22 Lisinopril [Zestril] 15 mg PO HS 11/11/22 11/11/22 - Allergies Allergies/Adverse Reactions: Allergies Allergy/AdvReac Type Severity Reaction Status Date / Time amitriptyline Allergy Anaphylaxis Verified 05/05/22 16:05 amlodipine Allergy Rash Verified 05/05/22 16:05 clindamycin Allergy Nausea Verified 05/05/22 16:05 diphenhydramine Allergy Anaphylaxis Verified 05/05/22 16:05 [From Benadryl] hydralazine Allergy Hallucinati Verified 05/05/22 16:05 ons hydrochlorothiazide Allergy Anaphylaxis Verified 05/05/22 16:05 Penicillins Allergy Anaphylaxis Verified 05/05/22 16:05 Review of Systems - Constitutional Constitutional: reports: Weakness, Poor appetite - Gastrointestinal Gastrointestinal: reports: Abdominal pain, Diarrhea, Nausea, Vomiting - Neurological Neurological: reports: Slurred speech - All Other Systems All Other Systems: reports: Reviewed and negative Exam - Vital Signs Reviewed Vital Signs: Yes Vital Signs: Vital Signs x48h Temp Pulse Resp BP Pulse Ox 11/10/22 14:00 75 14 98/58 L 99 11/10/22 10:55 37.1 C 75 20 94/50 L 99 - Physical Exam General Appearance: positive: No acute distress, Alert Eyes Bilateral: positive: Normal inspection ENT: positive: ENT inspection nml, No signs of dehydration Neck: positive: Nml inspection, No JVD Respiratory: positive: Chest non-tender, No respiratory distress, Breath sounds nml Cardiovascular: positive: Regular rate & rhythm, No murmur Abdomen: positive: Non-tender (No guarding or rebound), Nml bowel sounds, No distention Skin: positive: Warm, Dry Extremities: positive: Non-tender, No pedal edema Neurologic/Psychiatric: positive: Oriented x3, Motor nml, Slurred/abnml speech Conclusion/Plan - Problem List (1) Acute kidney injury Conclusion/Plan: She is clinically dehydrated and has prerenal azotemia on labs but also may have ATN from hypotension. Plan: Continue aggressive IV fluid replacement at 100 cc/hr or greater Avoid nephrotoxins Follow BMP daily (2) Gastroenteritis Conclusion/Plan: This presentation is similar to the record from April 2022 here. Plan: IV antiemetics prn IV fluids If she has further diarrhea will order C. difficile sample and if this is negative she can have Imodium as needed. (3) Antiphospholipid antibody syndrome Conclusion/Plan: As per Hx. Plan: We will continue an anticoagulant while here (Xarelto is not on formulary, will substitute Eliquis). (4) Dysarthria due to old stroke Conclusion/Plan: As per Hx (5) History of essential hypertension Conclusion/Plan: Plan: Since she currently has a "soft" HERMINIO, no meds to be started until BP higher and once the meds list is econciled by pharmacy. - Lab Results Fish Bones: 11/11/22 08:20 11/11/22 08:20 - Diagnostic Imaging Results Diagnostic Imaging Results: positive: Final report reviewed - Other Other Results/Comments: Attestation: The patient is expected to be discharged or transferred to another facility within 96 hours: Yes.
[2022-11-10] MEDS: DEXTROSE 5%-0.9% NACL 1,000 ML IV SCH (19:23)
[2022-11-11] MEDS: SODIUM CHLORIDE FLUSH 0.9% 10 ML SYRINGE IVP SCH ×4 (00:45→23:36)
[2022-11-11] MEDS: DEXTROSE 5%-0.9% NACL 1,000 ML IV SCH ×3 (04:55→20:04)
[2022-11-11 08:27] LABS: BASOPHILS # (AUTO) 0.1 10^3/uL (0.0-0.1); BASOPHILS % (AUTO) 0.4 %; EOSINOPHILS # (AUTO) 0.1 10^3/uL (0.0-0.7); EOSINOPHILS % (AUTO) 0.8 %; HCT - HEMATOCRIT 39.3 % (37.0-47.0); HGB - HEMOGLOBIN 13.1 g/dL (12.0-16.0); LYMPHOCYTES # (AUTO) 2.9 10^3/uL (1.5-3.5); LYMPHOCYTES % (AUTO) 18.4 %; MEAN CORPUSCULAR HEMOGLOBIN 29.1 pg (27.0-31.0); MEAN CORPUSCULAR HGB CONC 33.3 g/dL (32.0-36.0); MEAN CORPUSCULAR VOLUME 87.3 fL (81.0-99.0); MONOCYTES # (AUTO) 1.5 10^3/uL (0.0-1.0); MONOCYTES % (AUTO) 9.3 %; NEUTROPHILS # (AUTO) 11.3 10^3/uL (1.5-6.6); NEUTROPHILS % (AUTO) 70.7 %; PLT - PLATELET COUNT 269 10^3/uL (130-450); RED CELL DISTRIBUTION WIDTH 13.6 % (12.0-15.0)
[2022-11-11 08:38] LABS: CALCIUM 7.9 mg/dL (8.5-10.3); CREATININE 6.6 mg/dL (0.4-1.0); POTASSIUM 3.6 mmol/L (3.5-5.0)
--- NOTE | 2022-11-11 14:24 | PHARMACY PROGRESS NOTE ---
- Best Possible Medication History Admit Date and Time: 11/10/221820 Processed by: Pharmacy Medication History completed: Yes Patient Interview: Completed Secondary Source(s): Physician records, Insurance records As the person ultimately responsible for medication therapy, providers are able to order a medication from an existing home medication list in [facility] via the "Reconcile Routine" prior to Confirmation of that medication by business support associate. Such practice is discouraged except when the physician, in their clinical judgment, deems that a medical need exists for a medication without regard to previous use.
--- NOTE | 2022-11-11 15:40 | PROVIDER PROGRESS NOTE ---
Assessment/Plan - Problem List (1) Acute kidney injury Assessment/Plan: (1) Acute kidney injury Conclusion/Plan: She was clinically dehydrated and has prerenal azotemia and possibly ATN from hypotension. Despite being about 4 L positive in fluid balance since admission, her creat inine is increased from 6.1 to 6.8 today. Plan: Continue aggressive IV fluid replacement, will increase to 200 cc/hr Avoid nephrotoxins Follow BMP daily (2) Proteinuria Conclusion/Plan: Today she reported that a family member had kidney failure and has needed kidney transplantation and it all started with proteinuria Plan: Since the patient had protein present we will recheck that UA. She will likely need nephrology outpatient management going forward, given the sever creat elevations w/ dehydration. (3) Diarrhea Conclusion/Plan: This presentation is similar to the record from April 2022 here. Nausea and vomiting have resolved. She has had 3 moderately large yellow liquid BMs today. Today the patient reports that she has had multiple episodes of an/V/D in her life and was never given a gastrointestinal diagnoses such as irritable bowel syndrome, Crohn's or ulcerative colitis and none of these problems run in family members. She says she underwent a colonoscopy when still in [place], does not remember how many years ago and precancerous polyps were removed then and she has had no GI follow-up after that. Plan: Cont IV fluids Will advance diet to pureed. Will order C. difficile sample and if this is negative she can have Imodium as needed. I will try to reach the doctor who did her last colonoscopy, for any further information about her Hx (since that doctor is also her [facility]), and she gave me permission to reach out to him. She will need colonoscopy & outpt w/u done after this current inflammatory process has resolved. (4) Hypertension Conclusion/Plan: After rehydration with 4 L of positive fluid balance, her BP is no longer 90 systolic, but is now hypertensive at Plan: We will resume her usual doses of Labetalol. Will not resume her Zestril because of her ongoing renal failure My plan had been to add Hydralazine, however her allergy list says that she had altered mental status after getting hydralazine We will add Norvasc to her BP management. (5) Antiphospholipid antibody syndrome Conclusion/Plan: As per Hx. Plan: We will continue an anticoagulant while here (Xarelto is not on formulary, will substitute Eliquis). 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 She has required no further antiemetics IV since the one given in the ED and is tolerating her clear liquid diet and states she is even hungry Plan: We will advance her diet to pured - Current Meds Current Meds: Current Medications Generic Name Dose Route Start Last Admin Trade Name Freq PRN Reason Stop Dose Admin Dextrose/Sodium Chloride 1,000 mls @ 200 mls/hr 11/11/22 14:38 11/11/22 15:01 D5ns IV 200 mls/hr .Q5H JUAN Administration Sodium Chloride 10 ml 11/11/22 01:00 11/11/22 10:31 Sodium Chloride Flush 0.9% 10 Ml Syringe IVP Not Given 0100,0900,1700 JUAN - Lab Result Fish Bone Diagrams: 11/11/22 08:20 11/11/22 08:20 - Additional Planning My Orders: My Active Orders 11/10/22 18:21 Activity Orders [RC] Q2HR IO [RC] IOSHIFT Initiate Bowel Care Protocol [RC] .protocol Initiate Line Care Protocol [RC] QSHIFT Initiate Personal Care Protoco [RC] .protocol Oxygen Therapy [RC] .PRN Vital Signs [RC] Q4HR Acetaminophen [Tylenol] 650 mg PO Q4HR PRN Ondansetron Inj [Zofran Inj] 4 mg IVP Q6HR PRN Prochlorperazine Inj [Compazine Inj] 10 mg IVP Q6HR PRN Sodium Chloride Flush 0.9% [Normal Saline Flush 0.9%] 10 ml IVP PRN PRN Code Status [OTHERS] Routine Condition of Patient [OTHERS] Routine DVT Prophylaxis [OTHERS] Routine 11/10/22 18:23 Daily Weight [RC] 0600 11/10/22 18:24 SCDs [RC] QSHIFT 11/11/22 C DIFF PCR Stat 11/11/22 01:00 Sodium Chloride Flush 0.9% [Normal Saline Flush 0.9%] 10 ml IVP 0100,0900,1700 11/11/22 Breakfast Clear Liquid Diet [DIET] 11/11/22 14:38 Dextrose 5%-0.9% NaCl [D5ns] 1,000 ml IV 200 mls/hr 11/11/22 14:49 UA w/ MICROSCOPIC, CULT IF [URIN] Stat 11/11/22 Dinner DIET [Dysphagia - Puree] [DIET] 11/11/22 21:00 Apixaban [Eliquis] 5 mg PO BID Atorvastatin [Lipitor] 40 mg PO HS 11/11/22 22:00 Cyclobenzaprine [Flexeril] 5 mg PO TID PRN Gabapentin [Neurontin] 800 mg PO TID Labetalol [Trandate] 700 mg PO TID 11/12/22 05:00 BMP - BASIC METABOLIC PANEL [CHEM] DAILYLAB CBC - COMP BLD CT W/AUTO DIFF [HEME] DAILYLAB MAGNESIUM [CHEM] DAILYLAB 11/12/22 09:00 FLUoxetine [PROzac] 40 mg PO DAILY lisinopriL [Zestril] 15 mg PO DAILY 11/13/22 05:00 BMP - BASIC METABOLIC PANEL [CHEM] DAILYLAB CBC - COMP BLD CT W/AUTO DIFF [HEME] DAILYLAB 11/14/22 05:00 BMP - BASIC METABOLIC PANEL [CHEM] DAILYLAB CBC - COMP BLD CT W/AUTO DIFF [HEME] DAILYLAB 11/15/22 05:00 BMP - BASIC METABOLIC PANEL [CHEM] DAILYLAB CBC - COMP BLD CT W/AUTO DIFF [HEME] DAILYLAB Subjective - Subjective Patient Reports: Feeling Better (She feels no more nausea, has had no vomiting or need for IV Zofran. She is hungry and feels like she has an appetite), Diarrhea (She reports 3 watery BMs today, nonpainful and did not contain blood.) Objective Vital Signs: Vital Signs - 24 hr 11/10/22 11/10/22 11/11/22 19:00 21:44 01:00 Temperature 37.3 C 36.8 C 36.8 C Heart Rate [ 78 75 71 Brachial] Respiratory 16 16 16 Rate Blood Pressure 107/69 [Left Brachial artery] Blood Pressure 159/94 H 145/90 H [Right Brachial artery] O2 Saturation 99 98 96 11/11/22 11/11/22 11/11/22 04:44 08:23 11:47 Temperature 36.6 C 36.8 C Heart Rate [ 83 75 79 Brachial] Respiratory 16 18 Rate Blood Pressure 186/93 H 156/97 H [Left Brachial artery] Blood Pressure 156/99 H [Right Brachial artery] O2 Saturation 98 98 11/11/22 13:00 Temperature 36.7 C Heart Rate [ 70 Brachial] Respiratory 18 Rate Blood Pressure [Left Brachial artery] Blood Pressure [Right Brachial artery] O2 Saturation 96 Oxygen O2 Source Room air I&O (Last 24 Hrs): Intake and Output Totals x24h 11/09/22 11/10/22 11/11/22 23:59 23:59 23:59 Intake Total 3633.333 1120 Output Total 250 950 Balance 3383.333 170 General: Alert, Oriented x3 HEENT: Mucous membr. moist/pink, Other (wears glasses) Neck: Supple, No JVD Neuro: Alert, Other (Intermittently has slurred/stuttering speech) Cardiovascular: Regular rate, No murmurs Respiratory: No respiratory distress, Breath sounds nml Abdomen: Normal bowel sounds, Soft, No tenderness Extremities: No clubbing, No edema - Results Results: Laboratory Results WBC 16.0 x10^3/uL (4.8-10.8) H 11/11/22 08:20 RBC 4.50 10^6/uL (4.20-5.40) 11/11/22 08:20 Hgb 13.1 g/dL (12.0-16.0) 11/11/22 08:20 Hct 39.3 % (37.0-47.0) 11/11/22 08:20 MCV 87.3 fL (81.0-99.0) 11/11/22 08:20 MCH 29.1 pg (27.0-31.0) 11/11/22 08:20 MCHC 33.3 g/dL (32.0-36.0) 11/11/22 08:20 RDW 13.6 % (12.0-15.0) 11/11/22 08:20 Plt Count 269 10^3/uL (130-450) 11/11/22 08:20 MPV 10.0 fL (7.9-10.8) 11/11/22 08:20 Neut # (Auto) 11.3 10^3/uL (1.5-6.6) H 11/11/22 08:20 Lymph # (Auto) 2.9 10^3/uL (1.5-3.5) 11/11/22 08:20 [place] # (Auto) 1.5 10^3/uL (0.0-1.0) H 11/11/22 08:20 Eos # (Auto) 0.1 10^3/uL (0.0-0.7) 11/11/22 08:20 Baso # (Auto) 0.1 10^3/uL (0.0-0.1) 11/11/22 08:20 Absolute Nucleated RBC 0.00 x10^3/uL 11/11/22 08:20 Total Counted 100 11/10/22 11:44 Band Neuts % (Manual) 0 % (0-10) 11/10/22 11:44 Abnorm Lymph % (Manual) 0 % 11/10/22 11:44 Nucleated RBC % 0.0 /100WBC 11/11/22 08:20 Neutrophils # (Manual) 16.8 10^3/uL (1.5-6.6) H 11/10/22 11:44 Lymphocytes # (Manual) 4.2 10^3/uL (1.5-3.5) H 11/10/22 11:44 Monocytes # (Manual) 1.1 10^3/uL (0.0-1.0) H 11/10/22 11:44 Eosinophils # (Manual) 0.0 10^3/uL (0-0.7) 11/10/22 11:44 Basophils # (Manual) 0.0 10^3/uL (0-0.1) 11/10/22 11:44 Differential Comment MANUAL DIFFERENTIAL 11/10/22 11:44 Platelet Estimate NORMAL (130-450,000) (NORMAL) 11/10/22 11:44 Platelet Morphology NORMAL APPEARANCE (NORMAL) 11/10/22 11:44 RBC Morph Micro Appear NORMAL APPEARANCE (NORMAL) 11/10/22 11:44 Sodium 135 mmol/L (135-145) 11/11/22 08:20 Potassium 3.6 mmol/L (3.5-5.0) 11/11/22 08:20 Chloride 103 mmol/L (101-111) 11/11/22 08:20 Carbon Dioxide 18 mmol/L (21-32) L 11/11/22 08:20 Anion Gap 14.0 (6-13) H 11/11/22 08:20 BUN 75 mg/dL (6-20) H 11/11/22 08:20 Creatinine 6.6 mg/dL (0.4-1.0) H 11/11/22 08:20 Estimated GFR (MDRD) 7 (>89) L 11/11/22 08:20 Glucose 124 mg/dL (70-100) H 11/11/22 08:20 Calcium 7.9 mg/dL (8.5-10.3) L 11/11/22 08:20 Magnesium 1.8 mg/dL (1.7-2.8) 11/11/22 08:20 Total Bilirubin 1.2 mg/dL (0.2-1.0) H 11/10/22 11:44 AST 34 IU/L (10-42) 11/10/22 11:44 ALT 29 IU/L (10-60) 11/10/22 11:44 Alkaline Phosphatase 130 IU/L (42-121) H 11/10/22 11:44 Total Protein 7.4 g/dL (6.7-8.2) 11/10/22 11:44 Albumin 4.4 g/dL (3.2-5.5) 11/10/22 11:44 Globulin 3.0 g/dL (2.1-4.2) 11/10/22 11:44 Albumin/Globulin Ratio 1.5 (1.0-2.2) 11/10/22 11:44 Lipase 72 U/L (22-51) H 11/10/22 11:44 Urine Color DARK YELLOW 11/10/22 14:23 Urine Clarity SL (CLEAR) 11/10/22 14:23 Urine pH 5.5 PH (5.0-7.5) 11/10/22 14:23 Ur Specific [place] 1.025 (1.002-1.030) 11/10/22 14:23 Urine Protein 100 mg/dL (NEGATIVE) H 11/10/22 14:23 Urine Glucose (UA) NEGATIVE mg/dL (NEGATIVE) 11/10/22 14:23 Urine Ketones NEGATIVE mg/dL (NEGATIVE) 11/10/22 14:23 Urine Occult Blood SMALL (NEGATIVE) H 11/10/22 14:23 Urine Nitrite NEGATIVE (NEGATIVE) 11/10/22 14:23 Urine Bilirubin NEGATIVE (NEGATIVE) 11/10/22 14:23 Urine Urobilinogen 0.2 (NORMAL) E.U./dL (NORMAL) 11/10/22 14:23 Ur Leukocyte Esterase NEGATIVE (NEGATIVE) 11/10/22 14:23 Urine RBC 6-10 /HPF (0-5) H 11/10/22 14:23 Urine WBC 0-3 /HPF (0-5) 11/10/22 14:23 Ur Squamous Epith Cells MANY Squamous (<= Few) H 11/10/22 14:23 Urine Bacteria Few /HPF (None Seen) 11/10/22 14:23 Urine Casts 0-2 Granular Casts /LPF 11/10/22 14:23 Ur Microscopic Review INDICATED 11/10/22 14:23 Urine Culture Comments NOT INDICATED 11/10/22 14:23 Nasal Adenovirus (PCR) NOT DETECTED 11/10/22 15:25 Nasal B. parapertussis DNA (PCR) NOT DETECTED 11/10/22 15:25 Nasal Coronavir 229E PCR NOT DETECTED 11/10/22 15:25 Nasal Coronavir HKU1 PCR NOT DETECTED 11/10/22 15:25 Nasal Coronavir NL63 PCR NOT DETECTED 11/10/22 15:25 Nasal Coronavir OC43 PCR NOT DETECTED 11/10/22 15:25 Nasal Enterovir/Rhinovir PCR NOT DETECTED 11/10/22 15:25 Nasal Influenza B PCR NOT DETECTED 11/10/22 15:25 Nasal Influenza A PCR NOT DETECTED 11/10/22 15:25 Nasal Parainfluen 1 PCR NOT DETECTED 11/10/22 15:25 Nasal Parainfluen 2 PCR NOT DETECTED 11/10/22 15:25 Nasal Parainfluen 3 PCR NOT DETECTED 11/10/22 15:25 Nasal Parainfluen 4 PCR NOT DETECTED 11/10/22 15:25 Nasal RSV (PCR) NOT DETECTED 11/10/22 15:25 Nasal B.pertussis DNA PCR NOT DETECTED 11/10/22 15:25 Nasal C.pneumoniae (PCR) NOT DETECTED 11/10/22 15:25 Norbert Human Metapneumo PCR NOT DETECTED 11/10/22 15:25 Nasal M.pneumoniae (PCR) NOT DETECTED 11/10/22 15:25 Nasal SARS-CoV-2 (PCR) NOT DETECTED 11/10/22 15:25
[2022-11-11] MEDS: LABETALOL 100 MG TABLET PO SCH (16:57)
[2022-11-11] MEDS: LABETALOL 300 MG TABLET PO SCH (16:58)
[2022-11-11 17:06] LABS: BILIRUBIN,URINE NEGATIVE (NEGATIVE); GLUCOSE, URINE (UA) NEGATIVE (NEGATIVE); KETONES,URINE (UA) NEGATIVE (NEGATIVE); LEUKOCYTE ESTERASE, URINE NEGATIVE (NEGATIVE); NITRITE,URINE NEGATIVE (NEGATIVE); OCCULT BLOOD,URINE SMALL (NEGATIVE); PH,URINE 5.5 PH (5.0-7.5); PROTEIN,URINE NEGATIVE (NEGATIVE); UROBILINOGEN,URINE 0.2 (NORMAL) E.U./dL (NORMAL)
[2022-11-11 17:09] LABS: CLARITY,URINE CLEAR (CLEAR)
[2022-11-11 17:25] LABS: BACTERIA,URINE Few /HPF (None Seen); CRYSTALS,URINE 3-5 Calcium Oxalate /LPF; RBC,URINE 0-5 /HPF (0-5); SQUAMOUS EPITHELIAL CELL,UR FEW Squamous (<= Few)
[2022-11-11] MEDS: ATORVASTATIN 40 MG TABLET PO SCH (21:18)
[2022-11-11] MEDS: GABAPENTIN 400 MG CAPSULE PO SCH (21:18)
[2022-11-11] MEDS: APIXABAN 5 MG TABLET PO SCH (21:18)
[2022-11-11] MEDS ORDERED: LABETALOL 100 MG TABLET PO SCH (22:00)
[2022-11-11] MEDS ORDERED: CYCLOBENZAPRINE 10 MG TABLET PO PRN (22:00)
[2022-11-12] MEDS: DEXTROSE 5%-0.9% NACL 1,000 ML IV SCH ×3 (00:37→18:54)
[2022-11-12] MEDS: LABETALOL 100 MG TABLET PO SCH ×3 (05:27→21:14)
[2022-11-12] MEDS: GABAPENTIN 400 MG CAPSULE PO SCH ×3 (05:27→21:13)
[2022-11-12] MEDS: LABETALOL 300 MG TABLET PO SCH ×3 (05:27→21:14)
[2022-11-12 05:50] LABS: BASOPHILS # (AUTO) 0.1 10^3/uL (0.0-0.1); BASOPHILS % (AUTO) 0.5 %; EOSINOPHILS # (AUTO) 0.2 10^3/uL (0.0-0.7); HCT - HEMATOCRIT 35.2 % (37.0-47.0); HGB - HEMOGLOBIN 11.7 g/dL (12.0-16.0); LYMPHOCYTES # (AUTO) 2.6 10^3/uL (1.5-3.5); LYMPHOCYTES % (AUTO) 16.9 %; MEAN CORPUSCULAR HEMOGLOBIN 29.2 pg (27.0-31.0); MEAN CORPUSCULAR HGB CONC 33.2 g/dL (32.0-36.0); MEAN CORPUSCULAR VOLUME 87.8 fL (81.0-99.0); MONOCYTES # (AUTO) 1.8 10^3/uL (0.0-1.0); MONOCYTES % (AUTO) 11.4 %; NEUTROPHILS # (AUTO) 10.7 10^3/uL (1.5-6.6); NEUTROPHILS % (AUTO) 69.8 %; PLT - PLATELET COUNT 255 10^3/uL (130-450); RED BLOOD COUNT 4.01 10^6/uL (4.20-5.40); RED CELL DISTRIBUTION WIDTH 13.7 % (12.0-15.0); WHITE BLOOD COUNT 15.3 x10^3/uL (4.8-10.8)
[2022-11-12 05:59] LABS: CALCIUM 7.8 mg/dL (8.5-10.3); CREATININE 5.8 mg/dL (0.4-1.0); MAGNESIUM 1.6 mg/dL (1.7-2.8); POTASSIUM 3.5 mmol/L (3.5-5.0)
[2022-11-12] MEDS: SODIUM CHLORIDE FLUSH 0.9% 10 ML SYRINGE IVP SCH ×2 (08:15→18:30)
[2022-11-12] MEDS: ONDANSETRON 4 MG/2 ML VIAL IVP PRN (08:15)
[2022-11-12] MEDS: APIXABAN 5 MG TABLET PO SCH ×2 (08:18→21:11)
[2022-11-12] MEDS: FLUoxetine 10 MG CAPSULE PO SCH (08:18)
[2022-11-12] MEDS ORDERED: lisinopriL 5 MG TABLET PO SCH (09:00)
[2022-11-12] MEDS ORDERED: DEXTROSE 5%-0.9% NACL 1,000 ML IV SCH (09:10)
--- NOTE | 2022-11-12 09:14 | PROVIDER PROGRESS NOTE ---
Assessment/Plan - Problem List (1) Acute kidney injury Assessment/Plan: She was clinically dehydrated and has prerenal azotemia and possibly ATN from hypotension. Her creatinine first increased from 6.1 to 6.8 yesterday. Today improved to 5.8. She did have protein and granular casts seen on her U/A suggesting she may have CKD. Plan: Continue IV fluid replacement, will decrease iv rate due to #2 Avoid nephrotoxins Follow BMP daily (2) Cough Impression: This morning she has a very wet and productive cough. This is after 2 days of aggressive IV fluids given. Her WBC was 22 at admission and has declined slowly to 16 yesterday >> 15 today A chest x-ray was done today that was read as having CHF. Plan: Decrease IV rate from 200 down to 100 cc/h Will obtain sputum for a respiratory culture Will check a BNP and follow BNP. Will cycle troponins today to check for [place] Will obtain an Echo to evaluate LVEF (but today is Sat and we do not have Echo service here until ). (3) Diarrhea Conclusion/Plan: This presentation is similar to the record from April 2022 here. Nausea and vomiting restarted today. She had several moderately large yellow liquid BMs yesterday. The patient disclosed that she has had multiple episodes of N/V/D in her life and was never given a gastrointestinal diagnoses such as irritable bowel syndrome, Crohn's or ulcerative colitis and none of these problems run in family members. She says she underwent a colonoscopy when still in [place], does not remember how many years ago and precancerous polyps were removed then and she has had no GI follow-up after that. She had a C. difficile test and it was negative. Yesterday the pt allowed me to reach out to a prior doctor for more Hx (the surgeon who took care of her in [place], and happens to be her [id number], who happens to work at this hospital and is Dr. Marck Richter). He confirmed that there was no established Dx of why she gets such frequent nausea and vomiting. She will need colonoscopy & outpt Gastroenterology w/u done, after this current inflammatory process has resolved. Plan: Cont IV fluids Continue diet pureed. She can have Imodium as needed. I told the pt about my discussion with Dr Marck Richter. (4) N/V Conclusion/Plan: Nausea stopped yesterday and restarted today. She required antiemetics IV today. Yesterday she was tolerating her clear liquid diet and we advanced it to pureed, ever since dinner yesterday 11/11. Yesterday the pt allowed me to reach out to a prior doctor for more Hx (the surgeon who took care of her in [place], and happens to be her [id number], who happens to work at this hospital and is Dr. Marck Richter). He confirmed that there was no knowledge of why she gets such frequent nausea and vomiting. Plan: We will not advance diet beyond pured yet Continue prn iv antiemetics. I told the pt about my discussion with Dr Marck Richter. (5) Hypomagnesemia Conclusion/Plan: Likely from losses in vomiting and diarrhea. Plan: Replace witjh iv Mag rider Follow Mg daily. (6) Hypertension Conclusion/Plan: After rehydration with positive fluid balance, her BP is no longer 90 systolic, but is now hypertensive. There is a Hx of labile BP. Plan: We resumed her usual doses of Labetalol yesterday. Will not resume her Zestril because of her ongoing renal failure and today we learned that she suffered from a cough when she took Lisinopril. Will put REBEKA-I as a side effect and avoid using it, even after Dch. My plan had been to add Hydralazine, however her allergy list says that she had altered mental status after getting Hydralazine. We will add oral Clonidine to her BP management starting today. (7) Antiphospholipid antibody syndrome Conclusion/Plan: As per Hx. Plan: We will continue an anticoagulant while here (Xarelto is not on formulary, we substituted with Eliquis). (8) Proteinuria Conclusion/Plan: She reported that her aunt had kidney failure and needed kidney transplantation and it all started with finding proteinuria. Plan: Since the patient had protein present we will recheck that UA. She will likely need Nephrology outpatient management going forward, given the sever creat elevations w/ dehydration. 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 Conclusion/Plan: Due to old stroke, as per Hx - Current Meds Current Meds: Current Medications Generic Name Dose Route Start Last Admin Trade Name Freq PRN Reason Stop Dose Admin Apixaban 5 mg 11/11/22 21:00 11/12/22 08:18 Apixaban 5 Mg Tablet PO 5 mg BID JUAN Administration Atorvastatin Calcium 40 mg 11/11/22 21:00 11/11/22 21:18 Atorvastatin 40 Mg Tablet PO 40 mg HS JUAN Administration Fluoxetine HCl 40 mg 11/12/22 09:00 11/12/22 08:18 Fluoxetine 10 Mg Capsule PO 40 mg DAILY JUAN Administration Gabapentin 800 mg 11/11/22 22:00 11/12/22 05:27 Gabapentin 400 Mg Capsule PO 800 mg TID JUAN Administration Labetalol HCl 600 mg 11/11/22 17:00 11/12/22 05:27 Labetalol 300 Mg Tablet PO 600 mg TID JUAN Administration Labetalol HCl 100 mg 11/11/22 17:00 11/12/22 05:27 Labetalol 100 Mg Tablet PO 100 mg TID JUAN Administration Ondansetron HCl 4 mg 11/10/22 18:21 11/12/22 08:15 Ondansetron 4 Mg/2 Ml Vial IVP 4 mg Q6HR PRN Administration Nausea / Vomiting Sodium Chloride 10 ml 11/11/22 01:00 11/12/22 08:15 Sodium Chloride Flush 0.9% 10 Ml Syringe IVP 10 ml 0100,0900,1700 JUAN Administration - Lab Result Fish Bone Diagrams: 11/13/22 05:45 11/13/22 05:45 - Additional Planning My Orders: My Active Orders 11/11/22 Dinner DIET [Dysphagia - Puree] [DIET] 11/11/22 17:00 Labetalol [Trandate] 100 mg PO TID Labetalol [Trandate] 600 mg PO TID 11/11/22 21:00 Apixaban [Eliquis] 5 mg PO BID Atorvastatin [Lipitor] 40 mg PO HS 11/11/22 22:00 Cyclobenzaprine [Flexeril] 5 mg PO TID PRN Gabapentin [Neurontin] 800 mg PO TID 11/12/22 09:00 FLUoxetine [PROzac] 40 mg PO DAILY 11/12/22 09:09 Chest 1 View X-Ray [XR] Stat 11/12/22 09:10 Dextrose 5%-0.9% NaCl [D5ns] 1,000 ml IV 150 mls/hr 11/12/22 09:12 cloNIDine [Catapres] 0.1 mg PO BID 11/13/22 05:00 BMP - BASIC METABOLIC PANEL [CHEM] DAILYLAB CBC - COMP BLD CT W/AUTO DIFF [HEME] DAILYLAB 11/14/22 05:00 BMP - BASIC METABOLIC PANEL [CHEM] DAILYLAB CBC - COMP BLD CT W/AUTO DIFF [HEME] DAILYLAB 11/15/22 05:00 BMP - BASIC METABOLIC PANEL [CHEM] DAILYLAB CBC - COMP BLD CT W/AUTO DIFF [HEME] DAILYLAB Subjective - Subjective Patient Reports: Cough, Diarrhea (Today her there is less frequent and smaller but still liquid diarrhea. She had nausea this morning and needed IV Zofran administered. She thinks she has a cough from "aspiration".), Nausea Objective Vital Signs: Vital Signs - 24 hr 11/11/22 11/11/22 11/11/22 11:47 13:00 15:49 Temperature 36.7 C 37.2 C Heart Rate [ 79 70 74 Brachial] Respiratory 18 18 Rate Blood Pressure 156/97 H 186/107 H [Left Brachial artery] O2 Saturation 96 99 11/11/22 11/11/22 11/12/22 20:51 23:48 05:00 Temperature 36.7 C 36.7 C 36.8 C Heart Rate [ 81 69 78 Brachial] Respiratory 18 18 16 Rate Blood Pressure 149/86 H 162/87 H 184/99 H [Left Brachial artery] O2 Saturation 98 98 94 11/12/22 08:02 Temperature 36.7 C Heart Rate [ 78 Brachial] Respiratory 16 Rate Blood Pressure 173/59 H [Left Brachial artery] O2 Saturation 97 Oxygen O2 Source Room air I&O (Last 24 Hrs): Intake and Output Totals x24h 11/10/22 11/11/22 11/12/22 23:59 23:59 23:59 Intake Total 3633.333 4810 1950 Output Total 250 0 Balance 3383.333 2760 1950 General: Alert, Oriented x3 HEENT: Mucous membr. moist/pink Neck: Supple, No JVD Neuro: Alert, Other (dysarthria) Cardiovascular: Regular rate, No murmurs Respiratory: No respiratory distress, Breath sounds nml Abdomen: Soft, No tenderness, Other (Hyperactive bowel sounds) Extremities: No clubbing, No edema, No tenderness/swelling - Results Results: Laboratory Results WBC 15.3 x10^3/uL (4.8-10.8) H 11/12/22 05:33 RBC 4.01 10^6/uL (4.20-5.40) L 11/12/22 05:33 Hgb 11.7 g/dL (12.0-16.0) L 11/12/22 05:33 Hct 35.2 % (37.0-47.0) L 11/12/22 05:33 MCV 87.8 fL (81.0-99.0) 11/12/22 05:33 MCH 29.2 pg (27.0-31.0) 11/12/22 05:33 MCHC 33.2 g/dL (32.0-36.0) 11/12/22 05:33 RDW 13.7 % (12.0-15.0) 11/12/22 05:33 Plt Count 255 10^3/uL (130-450) 11/12/22 05:33 MPV 10.0 fL (7.9-10.8) 11/12/22 05:33 Neut # (Auto) 10.7 10^3/uL (1.5-6.6) H 11/12/22 05:33 Lymph # (Auto) 2.6 10^3/uL (1.5-3.5) 11/12/22 05:33 [place] # (Auto) 1.8 10^3/uL (0.0-1.0) H 11/12/22 05:33 Eos # (Auto) 0.2 10^3/uL (0.0-0.7) 11/12/22 05:33 Baso # (Auto) 0.1 10^3/uL (0.0-0.1) 11/12/22 05:33 Absolute Nucleated RBC 0.00 x10^3/uL 11/12/22 05:33 Total Counted 100 11/10/22 11:44 Band Neuts % (Manual) 0 % (0-10) 11/10/22 11:44 Abnorm Lymph % (Manual) 0 % 11/10/22 11:44 Nucleated RBC % 0.0 /100WBC 11/12/22 05:33 Neutrophils # (Manual) 16.8 10^3/uL (1.5-6.6) H 11/10/22 11:44 Lymphocytes # (Manual) 4.2 10^3/uL (1.5-3.5) H 11/10/22 11:44 Monocytes # (Manual) 1.1 10^3/uL (0.0-1.0) H 11/10/22 11:44 Eosinophils # (Manual) 0.0 10^3/uL (0-0.7) 11/10/22 11:44 Basophils # (Manual) 0.0 10^3/uL (0-0.1) 11/10/22 11:44 Differential Comment MANUAL DIFFERENTIAL 11/10/22 11:44 Platelet Estimate NORMAL (130-450,000) (NORMAL) 11/10/22 11:44 Platelet Morphology NORMAL APPEARANCE (NORMAL) 11/10/22 11:44 RBC Morph Micro Appear NORMAL APPEARANCE (NORMAL) 11/10/22 11:44 Sodium 138 mmol/L (135-145) 11/12/22 05:33 Potassium 3.5 mmol/L (3.5-5.0) 11/12/22 05:33 Chloride 109 mmol/L (101-111) 11/12/22 05:33 Carbon Dioxide 18 mmol/L (21-32) L 11/12/22 05:33 Anion Gap 11.0 (6-13) 11/12/22 05:33 BUN 63 mg/dL (6-20) H 11/12/22 05:33 Creatinine 5.8 mg/dL (0.4-1.0) H 11/12/22 05:33 Estimated GFR (MDRD) 8 (>89) L 11/12/22 05:33 Glucose 124 mg/dL (70-100) H 11/12/22 05:33 Calcium 7.8 mg/dL (8.5-10.3) L 11/12/22 05:33 Magnesium 1.6 mg/dL (1.7-2.8) L 11/12/22 05:33 Total Bilirubin 1.2 mg/dL (0.2-1.0) H 11/10/22 11:44 AST 34 IU/L (10-42) 11/10/22 11:44 ALT 29 IU/L (10-60) 11/10/22 11:44 Alkaline Phosphatase 130 IU/L (42-121) H 11/10/22 11:44 Total Protein 7.4 g/dL (6.7-8.2) 11/10/22 11:44 Albumin 4.4 g/dL (3.2-5.5) 11/10/22 11:44 Globulin 3.0 g/dL (2.1-4.2) 11/10/22 11:44 Albumin/Globulin Ratio 1.5 (1.0-2.2) 11/10/22 11:44 Lipase 72 U/L (22-51) H 11/10/22 11:44 Urine Color YELLOW 11/11/22 16:55 Urine Clarity CLEAR (CLEAR) 11/11/22 16:55 Urine pH 5.5 PH (5.0-7.5) 11/11/22 16:55 Ur Specific [place] 1.010 (1.002-1.030) 11/11/22 16:55 Urine Protein NEGATIVE mg/dL (NEGATIVE) 11/11/22 16:55 Urine Glucose (UA) NEGATIVE mg/dL (NEGATIVE) 11/11/22 16:55 Urine Ketones NEGATIVE mg/dL (NEGATIVE) 11/11/22 16:55 Urine Occult Blood SMALL (NEGATIVE) H 11/11/22 16:55 Urine Nitrite NEGATIVE (NEGATIVE) 11/11/22 16:55 Urine Bilirubin NEGATIVE (NEGATIVE) 11/11/22 16:55 Urine Urobilinogen 0.2 (NORMAL) E.U./dL (NORMAL) 11/11/22 16:55 Ur Leukocyte Esterase NEGATIVE (NEGATIVE) 11/11/22 16:55 Urine RBC 0-5 /HPF (0-5) 11/11/22 16:55 Urine WBC 4-5 /HPF (0-5) 11/11/22 16:55 Ur Squamous Epith Cells FEW Squamous (<= Few) 11/11/22 16:55 Urine Crystals 3-5 Calcium Oxalate /LPF 11/11/22 16:55 Urine Bacteria Few /HPF (None Seen) 11/11/22 16:55 Urine Casts 0-2 Granular Casts /LPF 11/10/22 14:23 Ur Microscopic Review INDICATED 11/10/22 14:23 Urine Culture Comments NOT INDICATED 11/11/22 16:55 Nasal Adenovirus (PCR) NOT DETECTED 11/10/22 15:25 Nasal B. parapertussis DNA (PCR) NOT DETECTED 11/10/22 15:25 Nasal Coronavir 229E PCR NOT DETECTED 11/10/22 15:25 Nasal Coronavir HKU1 PCR NOT DETECTED 11/10/22 15:25 Nasal Coronavir NL63 PCR NOT DETECTED 11/10/22 15:25 Nasal Coronavir OC43 PCR NOT DETECTED 11/10/22 15:25 Nasal Enterovir/Rhinovir PCR NOT DETECTED 11/10/22 15:25 Nasal Influenza B PCR NOT DETECTED 11/10/22 15:25 Nasal Influenza A PCR NOT DETECTED 11/10/22 15:25 Nasal Parainfluen 1 PCR NOT DETECTED 11/10/22 15:25 Nasal Parainfluen 2 PCR NOT DETECTED 11/10/22 15:25 Nasal Parainfluen 3 PCR NOT DETECTED 11/10/22 15:25 Nasal Parainfluen 4 PCR NOT DETECTED 11/10/22 15:25 Nasal RSV (PCR) NOT DETECTED 11/10/22 15:25 Nasal B.pertussis DNA PCR NOT DETECTED 11/10/22 15:25 Nasal C.pneumoniae (PCR) NOT DETECTED 11/10/22 15:25 Norbert Human Metapneumo PCR NOT DETECTED 11/10/22 15:25 Nasal M.pneumoniae (PCR) NOT DETECTED 11/10/22 15:25 Nasal SARS-CoV-2 (PCR) NOT DETECTED 11/10/22 15:25 Stl C. diff Tox B Gene NEGATIVE (NEGATIVE) 11/11/22 18:50
[2022-11-12] MEDS: cloNIDine 0.1 MG TABLET PO SCH ×2 (09:29→21:12)
--- NOTE | 2022-11-12 09:41 | XRAY Report ---
PROCEDURE: Chest 1 View X-Ray INDICATIONS: New cough since on iv fluids TECHNIQUE: One view of the chest was acquired. COMPARISON: 05/05/2022 FINDINGS: Surgical changes and devices: Left portacatheter terminates in the mid SVC. Lungs and pleura: Mildly prominent interstitium without dense consolidation or pleural effusion. Mediastinum: Heart size is at the upper limit of normal. Bones and chest wall: No suspicious bony lesions. Overlying soft tissues appear unremarkable. IMPRESSION: Mildly prominent interstitium could represent edema or atypical infection. No dense consolidation or pleural effusions Reviewed by: Pedrito Cordova MD on 11/12/2022 8:40 AM [facility] Approved by: Pedrito Cordova MD on 11/12/2022 8:40 AM [facility] Station ID: [id number]
[2022-11-12] MEDS ORDERED: MAGNESIUM SULFATE 2 GRAM 2 GM/50 ML BAG IV ONE (12:34)
[2022-11-12] MEDS: ATORVASTATIN 40 MG TABLET PO SCH (21:12)
[2022-11-13] MEDS: ONDANSETRON 4 MG/2 ML VIAL IVP PRN (00:04)
[2022-11-13] MEDS: SODIUM CHLORIDE FLUSH 0.9% 10 ML SYRINGE IVP SCH ×3 (00:05→16:44)
[2022-11-13] MEDS: LABETALOL 100 MG TABLET PO SCH ×3 (05:07→21:29)
[2022-11-13] MEDS: LABETALOL 300 MG TABLET PO SCH ×3 (05:07→21:28)
[2022-11-13] MEDS: GABAPENTIN 400 MG CAPSULE PO SCH ×3 (05:07→21:28)
[2022-11-13] MEDS: DEXTROSE 5%-0.9% NACL 1,000 ML IV SCH ×2 (05:08→14:53)
[2022-11-13 05:56] LABS: BASOPHILS % (AUTO) 0.6 %; EOSINOPHILS % (AUTO) 1.9 %; HGB - HEMOGLOBIN 10.3 g/dL (12.0-16.0); LYMPHOCYTES % (AUTO) 23.9 %; MEAN CORPUSCULAR HEMOGLOBIN 29.3 pg (27.0-31.0); MEAN CORPUSCULAR HGB CONC 33.2 g/dL (32.0-36.0); MEAN CORPUSCULAR VOLUME 88.1 fL (81.0-99.0); MEAN PLATELET VOLUME 10.2 fL (7.9-10.8); MONOCYTES % (AUTO) 10.9 %; NEUTROPHILS % (AUTO) 62.3 %; PLT - PLATELET COUNT 241 10^3/uL (130-450); RED BLOOD COUNT 3.52 10^6/uL (4.20-5.40); WHITE BLOOD COUNT 14.8 x10^3/uL (4.8-10.8)
[2022-11-13 06:05] LABS: CALCIUM 8.3 mg/dL (8.5-10.3); CREATININE 4.1 mg/dL (0.4-1.0); POTASSIUM 3.8 mmol/L (3.5-5.0)
[2022-11-13 06:11] LABS: ABNORMAL LYMPHS % (MANUAL) 0 %
[2022-11-13 06:40] LABS: BAND NEUTROPHILS % (MANUAL) 2 %; EOSINOPHILS # (MANUAL) 0.3 10^3/uL (0-0.7); LYMPHOCYTES # (MANUAL) 2.7 10^3/uL (1.5-3.5); LYMPHOCYTES % (MANUAL) 18 %; MONOCYTES # (MANUAL) 1.2 10^3/uL (0.0-1.0); NEUTROPHILS # (MANUAL) 10.7 10^3/uL (1.5-6.6)
[2022-11-13 06:41] LABS: DIFFERENTIAL COMMENT MANUAL DIFFERENTIAL; PLATELET ESTIMATE, MANUAL NORMAL (130-450,000) (NORMAL); PLATELET MORPHOLOGY NORMAL APPEARANCE (NORMAL); RBC MORPHOLOGY (MULTIPLE) NORMAL APPEARANCE (NORMAL); WBC MORPHOLOGY (MULTIPLE) NORMAL APPEARANCE (NORMAL)
[2022-11-13] MEDS: cloNIDine 0.1 MG TABLET PO SCH ×2 (08:03→21:29)
[2022-11-13] MEDS: FLUoxetine 10 MG CAPSULE PO SCH (08:04)
[2022-11-13] MEDS: APIXABAN 5 MG TABLET PO SCH ×2 (08:04→21:28)
--- NOTE | 2022-11-13 14:48 | PROVIDER PROGRESS NOTE ---
Assessment/Plan - Problem List (1) Acute kidney injury Assessment/Plan: She was clinically dehydrated and has prerenal azotemia and possibly ATN from hypotension. Her creatinine first increased from 6.1 to 6.8, then improved to 5.8>> today 4.1 She did have protein and granular casts seen on her U/A suggesting she may have CKD. Plan: Continue IV fluid replacement, wie decreased iv rate due to #2 Avoid nephrotoxins Follow BMP daily (2) Cough On 11/12, she has a very wet and productive cough. This was after 2 days of aggressive IV fluids given. Her WBC was 22 at admission and has declined slowly to 16 >> 15 on 11/11. A chest x-ray was done that was read as having fluid overload. BNP came back at 450. Troponins were cycled and were neg for ND (12>> 11). Plan: Continue the decreased IV rate from 200 down to 100 cc/h A sputum for a respiratory culture was sent, result pending Ordered an Echo to evaluate LVEF (but today is Sun and we do not have Echo service here until ). (3) Diarrhea Conclusion/Plan: This presentation is similar to the record from April 2022 here. N/V/D are on and off. She had several moderately large yellow liquid BMs. The patient disclosed that she has had multiple episodes of N/V/D in her life and was never given a gastrointestinal diagnoses such as irritable bowel syndrome, Crohn's or ulcerative colitis and none of these problems run in family members. She says she underwent a colonoscopy when still in [place], does not remember how many years ago and precancerous polyps were removed then and she starr s had no GI follow-up after that. The pt allowed me to reach out to a prior doctor for more Hx (the surgeon who took care of her in [place], and happens to be her [id number], who happens to work at this hospital and is Dr. Marck Richter). He confirmed that there was no established Dx of why she gets such frequent nausea and vomiting. I told the pt and gilmer Lopez, at bedside today, about my discussion with Dr Marck Richter. Plan: Cont IV fluids Diet is pureed, will try to advance, since no N/V/D today. She can have Imodium as needed. She will need colonoscopy & outpt Gastroenterology w/u done, after this current inflammatory process has resolved. (4) N/V Conclusion/Plan: N/V are on and off. She required antiemetics IV today. She was tolerating her clear liquid diet and we advanced it to pureed Yesterday the pt allowed me to reach out to a prior doctor for more Hx. He confirmed that there was no knowledge of why she gets such frequent nausea and vomiting. Plan: Diet is pureed, will try to advance, since no N/V/D today. Continue prn iv antiemetics. (5) Hypomagnesemia Conclusion/Plan: Likely from losses in vomiting and diarrhea. Plan: Replace witjh iv Mag rider Follow Mg daily. (6) Hypertension Conclusion/Plan: After rehydration started and positive fluid balance, her BP is no longer 90 systolic, but is now hypertensive. There is a Hx of labile BP. Plan: We resumed her usual doses of Labetalol Will not resume her Zestril because of her ongoing renal failure and today we learned that she suffered from a cough when she took Lisinopril. Will put REBEKA-I as a side effect and avoid using it, even after Dch. My plan had been to add Hydralazine, however her allergy list says that she had altered mental status after getting Hydralazine. We added oral Clonidine to her BP management (7) Antiphospholipid antibody syndrome Conclusion/Plan: As per Hx. Plan: We will continue an anticoagulant while here (Xarelto is not on formulary, we substituted with Eliquis). (8) Proteinuria Conclusion/Plan: This pt did have protein and granular casts seen on her U/A suggesting she may have CKD. Plan: She will likely need Nephrology outpatient management going forward, given the sever creat elevations w/ dehydration. 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 Conclusion/Plan: Due to old stroke, as per Hx - Current Meds Current Meds: Current Medications Generic Name Dose Route Start Last Admin Trade Name Freq PRN Reason Stop Dose Admin Apixaban 5 mg 11/11/22 21:00 11/13/22 08:04 Apixaban 5 Mg Tablet PO 5 mg BID JUAN Administration Atorvastatin Calcium 40 mg 11/11/22 21:00 11/12/22 21:12 Atorvastatin 40 Mg Tablet PO 40 mg HS JUAN Administration Clonidine HCl 0.1 mg 11/12/22 09:12 11/13/22 08:03 Clonidine 0.1 Mg Tablet PO 0.1 mg BID JUAN Administration Fluoxetine HCl 40 mg 11/12/22 09:00 11/13/22 08:04 Fluoxetine 10 Mg Capsule PO 40 mg DAILY JUAN Administration Gabapentin 800 mg 11/11/22 22:00 11/13/22 13:54 Gabapentin 400 Mg Capsule PO 800 mg TID JUAN Administration Dextrose/Sodium Chloride 1,000 mls @ 100 mls/hr 11/12/22 12:10 11/13/22 05:08 D5ns IV 100 mls/hr .Q10H JUAN Administration Labetalol HCl 600 mg 11/11/22 17:00 11/13/22 13:55 Labetalol 300 Mg Tablet PO 600 mg TID JUAN Administration Labetalol HCl 100 mg 11/11/22 17:00 11/13/22 13:55 Labetalol 100 Mg Tablet PO 100 mg TID JUAN Administration Ondansetron HCl 4 mg 11/10/22 18:21 11/13/22 00:04 Ondansetron 4 Mg/2 Ml Vial IVP 4 mg Q6HR PRN Administration Nausea / Vomiting Sodium Chloride 10 ml 11/11/22 01:00 11/13/22 11:16 Sodium Chloride Flush 0.9% 10 Ml Syringe IVP Not Given 0100,0900,1700 JUAN - Lab Result Fish Bone Diagrams: 11/13/22 05:45 11/13/22 05:45 - Additional Planning My Orders: My Active Orders 11/14/22 05:00 BMP - BASIC METABOLIC PANEL [CHEM] DAILYLAB CBC - COMP BLD CT W/AUTO DIFF [HEME] DAILYLAB 11/15/22 05:00 BMP - BASIC METABOLIC PANEL [CHEM] DAILYLAB CBC - COMP BLD CT W/AUTO DIFF [HEME] DAILYLAB 11/15/22 07:00 Echo Transthoracic Complete [ECHO] Routine Subjective - Subjective Patient Reports: Feeling Better (feels stronger overall, and has an appetite, she says.), Nausea (was nauseated and need Zofran at 0300.) Objective Vital Signs: Vital Signs - 24 hr 11/12/22 11/12/22 11/12/22 16:02 21:00 22:24 Temperature 36.7 C 36.7 C Heart Rate [ 69 76 Brachial] Respiratory 18 16 Rate Blood Pressure 136/77 H 186/94 H 164/88 H [Left Brachial artery] O2 Saturation 96 99 11/13/22 11/13/22 11/13/22 00:04 05:00 07:44 Temperature 36.8 C 36.8 C 36.7 C Heart Rate [ 75 78 70 Brachial] Respiratory 18 18 18 Rate Blood Pressure 168/90 H 156/99 H 140/86 H [Left Brachial artery] O2 Saturation 95 94 95 11/13/22 13:50 Temperature 36.4 C L Heart Rate [ 64 Brachial] Respiratory 16 Rate Blood Pressure 191/90 H [Left Brachial artery] O2 Saturation 97 Oxygen O2 Source Room air I&O (Last 24 Hrs): Intake and Output Totals x24h 11/11/22 11/12/22 11/13/22 23:59 23:59 23:59 Intake Total 4810 7426.993 1781.667 Output Total 2050 Balance 2760 7426.993 1781.667 General: Alert, Oriented x3 HEENT: Mucous membr. moist/pink, Other (wearing glasses) Neck: Supple, No JVD Neuro: Alert, Other (dysarthria.) Cardiovascular: Regular rate, No murmurs Respiratory: No respiratory distress, Breath sounds nml Abdomen: Normal bowel sounds, Soft, No tenderness Extremities: No clubbing, No edema, No tenderness/swelling - Results Results: Laboratory Results WBC 14.8 x10^3/uL (4.8-10.8) H 11/13/22 05:45 RBC 3.52 10^6/uL (4.20-5.40) L 11/13/22 05:45 Hgb 10.3 g/dL (12.0-16.0) L 11/13/22 05:45 Hct 31.0 % (37.0-47.0) L 11/13/22 05:45 MCV 88.1 fL (81.0-99.0) 11/13/22 05:45 MCH 29.3 pg (27.0-31.0) 11/13/22 05:45 MCHC 33.2 g/dL (32.0-36.0) 11/13/22 05:45 RDW 14.0 % (12.0-15.0) 11/13/22 05:45 Plt Count 241 10^3/uL (130-450) 11/13/22 05:45 MPV 10.2 fL (7.9-10.8) 11/13/22 05:45 Neut # (Auto) Not Reportable 11/13/22 05:45 Lymph # (Auto) Not Reportable 11/13/22 05:45 Levy # (Auto) Not Reportable 11/13/22 05:45 Eos # (Auto) Not Reportable 11/13/22 05:45 Baso # (Auto) Not Reportable 11/13/22 05:45 Absolute Nucleated RBC Not Reportable 11/13/22 05:45 Total Counted 100 11/13/22 05:45 Band Neuts % (Manual) 2 % (0-10) 11/13/22 05:45 Abnorm Lymph % (Manual) 0 % 11/13/22 05:45 Nucleated RBC % Not Reportable 11/13/22 05:45 Neutrophils # (Manual) 10.7 10^3/uL (1.5-6.6) H 11/13/22 05:45 Lymphocytes # (Manual) 2.7 10^3/uL (1.5-3.5) 11/13/22 05:45 Monocytes # (Manual) 1.2 10^3/uL (0.0-1.0) H 11/13/22 05:45 Eosinophils # (Manual) 0.3 10^3/uL (0-0.7) 11/13/22 05:45 Basophils # (Manual) 0.0 10^3/uL (0-0.1) 11/13/22 05:45 Differential Comment MANUAL DIFFERENTIAL 11/13/22 05:45 WBC Morphology NORMAL APPEARANCE (NORMAL) 11/13/22 05:45 Platelet Estimate NORMAL (130-450,000) (NORMAL) 11/13/22 05:45 Platelet Morphology NORMAL APPEARANCE (NORMAL) 11/13/22 05:45 RBC Morph Micro Appear NORMAL APPEARANCE (NORMAL) 11/13/22 05:45 Sodium 140 mmol/L (135-145) 11/13/22 05:45 Potassium 3.8 mmol/L (3.5-5.0) 11/13/22 05:45 Chloride 108 mmol/L (101-111) 11/13/22 05:45 Carbon Dioxide 24 mmol/L (21-32) 11/13/22 05:45 Anion Gap 8.0 (6-13) 11/13/22 05:45 BUN 48 mg/dL (6-20) H 11/13/22 05:45 Creatinine 4.1 mg/dL (0.4-1.0) H 11/13/22 05:45 Estimated GFR (MDRD) 11 (>89) L 11/13/22 05:45 Glucose 109 mg/dL (70-100) H 11/13/22 05:45 Calcium 8.3 mg/dL (8.5-10.3) L 11/13/22 05:45 Magnesium 1.6 mg/dL (1.7-2.8) L 11/12/22 05:33 Total Bilirubin 1.2 mg/dL (0.2-1.0) H 11/10/22 11:44 AST 34 IU/L (10-42) 11/10/22 11:44 ALT 29 IU/L (10-60) 11/10/22 11:44 Alkaline Phosphatase 130 IU/L (42-121) H 11/10/22 11:44 Troponin I High Sens 11.2 ng/L (2.3-14.8) 11/12/22 12:30 B-Natriuretic Peptide 453 pg/mL (5-100) H 11/13/22 05:45 Total Protein 7.4 g/dL (6.7-8.2) 11/10/22 11:44 Albumin 4.4 g/dL (3.2-5.5) 11/10/22 11:44 Globulin 3.0 g/dL (2.1-4.2) 11/10/22 11:44 Albumin/Globulin Ratio 1.5 (1.0-2.2) 11/10/22 11:44 Lipase 72 U/L (22-51) H 11/10/22 11:44 Urine Color YELLOW 11/11/22 16:55 Urine Clarity CLEAR (CLEAR) 11/11/22 16:55 Urine pH 5.5 PH (5.0-7.5) 11/11/22 16:55 Ur Specific [place] 1.010 (1.002-1.030) 11/11/22 16:55 Urine Protein NEGATIVE mg/dL (NEGATIVE) 11/11/22 16:55 Urine Glucose (UA) NEGATIVE mg/dL (NEGATIVE) 11/11/22 16:55 Urine Ketones NEGATIVE mg/dL (NEGATIVE) 11/11/22 16:55 Urine Occult Blood SMALL (NEGATIVE) H 11/11/22 16:55 Urine Nitrite NEGATIVE (NEGATIVE) 11/11/22 16:55 Urine Bilirubin NEGATIVE (NEGATIVE) 11/11/22 16:55 Urine Urobilinogen 0.2 (NORMAL) E.U./dL (NORMAL) 11/11/22 16:55 Ur Leukocyte Esterase NEGATIVE (NEGATIVE) 11/11/22 16:55 Urine RBC 0-5 /HPF (0-5) 11/11/22 16:55 Urine WBC 4-5 /HPF (0-5) 11/11/22 16:55 Ur Squamous Epith Cells FEW Squamous (<= Few) 11/11/22 16:55 Urine Crystals 3-5 Calcium Oxalate /LPF 11/11/22 16:55 Urine Bacteria Few /HPF (None Seen) 11/11/22 16:55 Urine Casts 0-2 Granular Casts /LPF 11/10/22 14:23 Ur Microscopic Review INDICATED 11/10/22 14:23 Urine Culture Comments NOT INDICATED 11/11/22 16:55 Nasal Adenovirus (PCR) NOT DETECTED 11/10/22 15:25 Nasal B. parapertussis DNA (PCR) NOT DETECTED 11/10/22 15:25 Nasal Coronavir 229E PCR NOT DETECTED 11/10/22 15:25 Nasal Coronavir HKU1 PCR NOT DETECTED 11/10/22 15:25 Nasal Coronavir NL63 PCR NOT DETECTED 11/10/22 15:25 Nasal Coronavir OC43 PCR NOT DETECTED 11/10/22 15:25 Nasal Enterovir/Rhinovir PCR NOT DETECTED 11/10/22 15:25 Nasal Influenza B PCR NOT DETECTED 11/10/22 15:25 Nasal Influenza A PCR NOT DETECTED 11/10/22 15:25 Nasal Parainfluen 1 PCR NOT DETECTED 11/10/22 15:25 Nasal Parainfluen 2 PCR NOT DETECTED 11/10/22 15:25 Nasal Parainfluen 3 PCR NOT DETECTED 11/10/22 15:25 Nasal Parainfluen 4 PCR NOT DETECTED 11/10/22 15:25 Nasal RSV (PCR) NOT DETECTED 11/10/22 15:25 Nasal B.pertussis DNA PCR NOT DETECTED 11/10/22 15:25 Nasal C.pneumoniae (PCR) NOT DETECTED 11/10/22 15:25 Norbert Human Metapneumo PCR NOT DETECTED 11/10/22 15:25 Nasal M.pneumoniae (PCR) NOT DETECTED 11/10/22 15:25 Nasal SARS-CoV-2 (PCR) NOT DETECTED 11/10/22 15:25 Stl C. diff Tox B Gene NEGATIVE (NEGATIVE) 11/11/22 18:50
[2022-11-13] MEDS ORDERED: PRAZOSIN 1 MG CAPSULE PO ONE (16:33)
[2022-11-13] MEDS: ATORVASTATIN 40 MG TABLET PO SCH (21:29)
[2022-11-14] MEDS: DEXTROSE 5%-0.9% NACL 1,000 ML IV SCH ×2 (00:39→11:39)
[2022-11-14] MEDS: SODIUM CHLORIDE FLUSH 0.9% 10 ML SYRINGE IVP SCH ×3 (00:42→17:19)
[2022-11-14] MEDS: LABETALOL 100 MG TABLET PO SCH ×3 (05:37→21:16)
[2022-11-14] MEDS: LABETALOL 300 MG TABLET PO SCH ×3 (05:38→21:16)
[2022-11-14] MEDS: GABAPENTIN 400 MG CAPSULE PO SCH ×3 (05:39→21:17)
[2022-11-14 07:33] LABS: BASOPHILS # (AUTO) 0.1 10^3/uL (0.0-0.1); BASOPHILS % (AUTO) 0.5 %; CALCIUM 8.4 mg/dL (8.5-10.3); CREATININE 3.5 mg/dL (0.4-1.0); EOSINOPHILS # (AUTO) 0.3 10^3/uL (0.0-0.7); EOSINOPHILS % (AUTO) 1.7 %; HCT - HEMATOCRIT 29.2 % (37.0-47.0); HGB - HEMOGLOBIN 9.9 g/dL (12.0-16.0); LYMPHOCYTES % (AUTO) 19.4 %; MAGNESIUM 1.3 mg/dL (1.7-2.8); MEAN CORPUSCULAR HEMOGLOBIN 29.6 pg (27.0-31.0); MEAN CORPUSCULAR HGB CONC 33.9 g/dL (32.0-36.0); MEAN CORPUSCULAR VOLUME 87.2 fL (81.0-99.0); MEAN PLATELET VOLUME 10.4 fL (7.9-10.8); MONOCYTES # (AUTO) 1.7 10^3/uL (0.0-1.0); MONOCYTES % (AUTO) 10.8 %; NEUTROPHILS # (AUTO) 10.3 10^3/uL (1.5-6.6); NEUTROPHILS % (AUTO) 67.3 %; PLT - PLATELET COUNT 216 10^3/uL (130-450); POTASSIUM 3.6 mmol/L (3.5-5.0); RED BLOOD COUNT 3.35 10^6/uL (4.20-5.40); RED CELL DISTRIBUTION WIDTH 13.6 % (12.0-15.0); WHITE BLOOD COUNT 15.3 x10^3/uL (4.8-10.8)
[2022-11-14 07:34] LABS: SLIDE REVIEW? Indicated
--- NOTE | 2022-11-14 07:59 | PROVIDER PROGRESS NOTE ---
Assessment/Plan - Problem List (1) Acute kidney injury Assessment/Plan: She was clinically dehydrated and has prerenal azotemia and possibly ATN from hypotension. We started her on iv fluids since ER and continued. Her creatinine first increased from 6.1 to 6.8, then improved to 5.8>> 4.1>> 3.5 today She did have protein and granular casts seen on her U/A suggesting she may have CKD. Plan: Continue IV fluid replacement, we decreased iv rate due to elevated BNP (see #3) Avoid nephrotoxins Follow BMP daily (2) Fever Impression: She spiked a fever of 38 degrees C at midnight. It does not appear that any blood cultures were drawn or anything new ordered by the telemedicine night doctor. Her diarrhea has been tested for C. diff and that was neg Her WBC count has risen again: 22 at admission>> 16>> 15>> 14.8 yesterday>> 15.3 today. And cause was not clear. Her CT abd did not show colitis. Plan: Will order blood culture x2. Obtaining UA Obtain chest x-ray>> It was read as having "worsening pulmonary status, diffuse bilateral interstitial infiltrates, consider viral pneumonitis versus interstitial pulmonary edema". Will decrease her iv rate even more and an Echo was ordered to check EF (Today is Monday and we have no fitness technician here till Monday). Will order respiratory PCR panel Still waiting for sputum culture sample, from when she developed a cough 2 days ago. Will start empiric antibiotics for an atypical pneumonia, using Zithromax, but she has been an Inpt thus will order empiric Vanco to cover for MRSA. 3) Cough On Sat 11/12, she has a very wet and productive cough. This was after 2 days of aggressive IV fluids given. Her WBC was 22 at admission and has declined slowly to 16 >> 15 on 11/11. A chest x-ray was done that was read as having fluid overload. BNP came back at 450. Troponins were cycled and were neg for LA (12>> 11). Plan: Continue the decreased IV rate from 200 down to 100 down to 70 cc/h today A sputum for a respiratory culture was ordered but she cannot bring any up. Ordered an Echo to evaluate LVEF (but today is Sun and we do not have Echo service here until ). (4) Hypertension Conclusion/Plan: After rehydration started and positive fluid balance, her BP is no longer 90 systolic, but is now hypertensive. There is a Hx of labile BP. Plan: We resumed her usual doses of Labetalol Will not resume her Zestril because of her ongoing renal failure and today we learned that she suffered from a cough when she took Lisinopril. Will put REBEKA-I as a side effect and avoid using it, even after Dch. My plan had been to add Hydralazine, however her allergy list says that she had altered mental status after getting Hydralazine. We added oral Clonidine to her BP management, the dose has been increased She also needed Prazosin po twice when BP very elevated around 1500 daily, thus will add Prazosin and give it every noon (5) Diarrhea Conclusion/Plan: Improved. No diarrhea or BMs at all yesterday.This presentation is similar to the record from April 2022 here. N/V/D are on and off. She had several moderately large yellow liquid BMs. The patient disclosed that she has had multiple episodes of N/V/D in her life and was never given a gastrointestinal diagnoses such as irritable bowel syndrome, Crohn's or ulcerative colitis and none of these problems run in family members. She says she underwent a colonoscopy when still in [place], does not remember how many years ago and precancerous polyps were removed then and she has had no GI follow-up after that. The pt allowed me to reach out to a prior doctor for more Hx (the surgeon who took care of her in [place], and happens to be her [id number], who happens to work at this hospital and is Dr. Marck Richter). He confirmed that there was no established Dx of why she gets such frequent nausea and vomiting. I told the pt and gilmer Lopez, at bedside today, about my discussion with Dr Marck Richter. Plan: Cont IV fluids Diet is pureed, will try to advance, since no N/V/D today. She can have Imodium as needed. She will need colonoscopy & outpt Gastroenterology w/u done, after this current inflammatory process has resolved. (6) N/V Conclusion/Plan: Improved. No need for Zofran since 11/12 N/V was on and off. She required antiemetics IV today. She was tolerating her clear liquid diet and we advanced it to pureed The pt allowed me to reach out to a prior doctor for more Hx. He confirmed that there was no knowledge of why she gets such frequent nausea and vomiting. Plan: Diet is pureed, will try to advance, since no N/V/D today. Continue prn iv antiemetics. (7) Hypomagnesemia Conclusion/Plan: Likely from losses in vomiting and diarrhea. Plan: Replace witjh iv Mag rider Follow Mg daily. (8) Antiphospholipid antibody syndrome Conclusion/Plan: As per Hx. Plan: We will continue an anticoagulant while here (Xarelto is not on formulary, we substituted with Eliquis). (9) Proteinuria Conclusion/Plan: This pt did have protein and granular casts seen on her U/A suggesting she may have CKD. Plan: She will likely need Nephrology outpatient management going forward, given the sever creat elevations w/ dehydration. 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 Conclusion/Plan: Due to old stroke, as per Hx - Current Meds Current Meds: Current Medications Generic Name Dose Route Start Last Admin Trade Name Freq PRN Reason Stop Dose Admin Apixaban 5 mg 11/11/22 21:00 11/13/22 21:28 Apixaban 5 Mg Tablet PO 5 mg BID JUAN Administration Atorvastatin Calcium 40 mg 11/11/22 21:00 11/13/22 21:29 Atorvastatin 40 Mg Tablet PO 40 mg HS JUAN Administration Clonidine HCl 0.2 mg 11/13/22 21:00 11/13/22 21:29 Clonidine 0.1 Mg Tablet PO 0.2 mg BID JUAN Administration Fluoxetine HCl 40 mg 11/12/22 09:00 11/13/22 08:04 Fluoxetine 10 Mg Capsule PO 40 mg DAILY JUAN Administration Gabapentin 800 mg 11/11/22 22:00 11/14/22 05:39 Gabapentin 400 Mg Capsule PO 800 mg TID JUAN Administration Dextrose/Sodium Chloride 1,000 mls @ 100 mls/hr 11/12/22 12:10 11/14/22 00:39 D5ns IV 100 mls/hr .Q10H JUAN Administration Labetalol HCl 600 mg 11/11/22 17:00 11/14/22 05:38 Labetalol 300 Mg Tablet PO 600 mg TID JUAN Administration Labetalol HCl 100 mg 11/11/22 17:00 11/14/22 05:37 Labetalol 100 Mg Tablet PO 100 mg TID JUAN Administration Ondansetron HCl 4 mg 11/10/22 18:21 11/13/22 00:04 Ondansetron 4 Mg/2 Ml Vial IVP 4 mg Q6HR PRN Administration Nausea / Vomiting Sodium Chloride 10 ml 11/11/22 01:00 11/14/22 00:42 Sodium Chloride Flush 0.9% 10 Ml Syringe IVP 10 ml 0100,0900,1700 JUAN Administration - Lab Result Fish Bone Diagrams: 11/14/22 07:10 11/14/22 07:10 - Additional Planning My Orders: My Active Orders 11/13/22 21:00 cloNIDine [Catapres] 0.2 mg PO BID 11/14/22 CULTURE, BLOOD #1 [RM] Stat CULTURE, BLOOD #2 [RM] Stat RESPIRATORY PCR PANEL Urgent 11/14/22 Breakfast DIET [Soft (Low Fiber) Diet] [DIET] 11/14/22 07:40 UA w/ MICROSCOPIC, CULT IF [URIN] Stat 11/14/22 07:42 Chest 1 View X-Ray [XR] Stat 11/15/22 05:00 BMP - BASIC METABOLIC PANEL [CHEM] DAILYLAB CBC - COMP BLD CT W/AUTO DIFF [HEME] DAILYLAB MAGNESIUM [CHEM] DAILYLAB 11/15/22 07:00 Echo Transthoracic Complete [ECHO] Routine Subjective - Subjective Patient Reports: Shortness of Breath ("Cannot take a deep breath, feels restricted, not painful"), Other (Has an appetite, is hungry) Objective Vital Signs: Vital Signs - 24 hr 11/13/22 11/13/22 11/13/22 13:50 14:49 17:00 Temperature 36.4 C L 37 C Heart Rate [ 64 68 70 Brachial] Respiratory 16 16 Rate Blood Pressure 191/90 H 183/98 H 196/102 H [Left Brachial artery] O2 Saturation 97 95 11/13/22 11/13/22 11/14/22 17:52 21:00 00:43 Temperature 37.1 C 38.0 C H Heart Rate [ 73 77 83 Brachial] Respiratory 17 16 Rate Blood Pressure 188/99 H 197/98 H 168/92 H [Left Brachial artery] O2 Saturation 92 94 11/14/22 11/14/22 11/14/22 01:50 04:50 05:35 Temperature 37.9 C 37.4 C 36.8 C Heart Rate [ 78 Brachial] Respiratory 14 Rate Blood Pressure 180/96 H [Left Brachial artery] O2 Saturation 92 11/14/22 06:32 Temperature Heart Rate [ Brachial] Respiratory Rate Blood Pressure 145/89 H [Left Brachial artery] O2 Saturation Oxygen O2 Source Room air I&O (Last 24 Hrs): Intake and Output Totals x24h 11/12/22 11/13/22 11/14/22 23:59 23:59 23:59 Intake Total 7426.993 4885.000 638.333 Balance 7426.993 4885.000 638.333 General: Alert, Oriented x3 HEENT: Mucous membr. moist/pink, Other (wearing glasses) Neck: Supple, No JVD Neuro: Alert, Other (Slurred speech) Cardiovascular: Regular rate, No murmurs Respiratory: Rhonchi (Scattered R sided rhonchi posteriorly, no wheezing or rales) Abdomen: Normal bowel sounds, Soft, No tenderness, Other (Hyperactive bowel sounds) Extremities: No clubbing, No edema - Results Results: Laboratory Results WBC 15.3 x10^3/uL (4.8-10.8) H 11/14/22 07:10 RBC 3.35 10^6/uL (4.20-5.40) L 11/14/22 07:10 Hgb 9.9 g/dL (12.0-16.0) L 11/14/22 07:10 Hct 29.2 % (37.0-47.0) L 11/14/22 07:10 MCV 87.2 fL (81.0-99.0) 11/14/22 07:10 MCH 29.6 pg (27.0-31.0) 11/14/22 07:10 MCHC 33.9 g/dL (32.0-36.0) 11/14/22 07:10 RDW 13.6 % (12.0-15.0) 11/14/22 07:10 Plt Count 216 10^3/uL (130-450) 11/14/22 07:10 MPV 10.4 fL (7.9-10.8) 11/14/22 07:10 Neut # (Auto) 10.3 10^3/uL (1.5-6.6) H 11/14/22 07:10 Lymph # (Auto) 3.0 10^3/uL (1.5-3.5) 11/14/22 07:10 [place] # (Auto) 1.7 10^3/uL (0.0-1.0) H 11/14/22 07:10 Eos # (Auto) 0.3 10^3/uL (0.0-0.7) 11/14/22 07:10 Baso # (Auto) 0.1 10^3/uL (0.0-0.1) 11/14/22 07:10 Absolute Nucleated RBC 0.00 x10^3/uL 11/14/22 07:10 Total Counted 100 11/13/22 05:45 Band Neuts % (Manual) 2 % (0-10) 11/13/22 05:45 Abnorm Lymph % (Manual) 0 % 11/13/22 05:45 Nucleated RBC % 0.0 /100WBC 11/14/22 07:10 Neutrophils # (Manual) 10.7 10^3/uL (1.5-6.6) H 11/13/22 05:45 Lymphocytes # (Manual) 2.7 10^3/uL (1.5-3.5) 11/13/22 05:45 Monocytes # (Manual) 1.2 10^3/uL (0.0-1.0) H 11/13/22 05:45 Eosinophils # (Manual) 0.3 10^3/uL (0-0.7) 11/13/22 05:45 Basophils # (Manual) 0.0 10^3/uL (0-0.1) 11/13/22 05:45 Differential Comment MANUAL DIFFERENTIAL 11/13/22 05:45 Manual Slide Review Indicated 11/14/22 07:10 WBC Morphology NORMAL APPEARANCE (NORMAL) 11/13/22 05:45 Platelet Estimate NORMAL (130-450,000) (NORMAL) 11/13/22 05:45 Platelet Morphology NORMAL APPEARANCE (NORMAL) 11/13/22 05:45 RBC Morph Micro Appear NORMAL APPEARANCE (NORMAL) 11/13/22 05:45 Sodium 136 mmol/L (135-145) 11/14/22 07:10 Potassium 3.6 mmol/L (3.5-5.0) 11/14/22 07:10 Chloride 104 mmol/L (101-111) 11/14/22 07:10 Carbon Dioxide 24 mmol/L (21-32) 11/14/22 07:10 Anion Gap 8.0 (6-13) 11/14/22 07:10 BUN 43 mg/dL (6-20) H 11/14/22 07:10 Creatinine 3.5 mg/dL (0.4-1.0) H 11/14/22 07:10 Estimated GFR (MDRD) 14 (>89) L 11/14/22 07:10 Glucose 167 mg/dL (70-100) H 11/14/22 07:10 Calcium 8.4 mg/dL (8.5-10.3) L 11/14/22 07:10 Magnesium 1.3 mg/dL (1.7-2.8) L 11/14/22 07:10 Total Bilirubin 1.2 mg/dL (0.2-1.0) H 11/10/22 11:44 AST 34 IU/L (10-42) 11/10/22 11:44 ALT 29 IU/L (10-60) 11/10/22 11:44 Alkaline Phosphatase 130 IU/L (42-121) H 11/10/22 11:44 Troponin I High Sens 11.2 ng/L (2.3-14.8) 11/12/22 12:30 B-Natriuretic Peptide 453 pg/mL (5-100) H 11/13/22 05:45 Total Protein 7.4 g/dL (6.7-8.2) 11/10/22 11:44 Albumin 4.4 g/dL (3.2-5.5) 11/10/22 11:44 Globulin 3.0 g/dL (2.1-4.2) 11/10/22 11:44 Albumin/Globulin Ratio 1.5 (1.0-2.2) 11/10/22 11:44 Lipase 72 U/L (22-51) H 11/10/22 11:44 Urine Color YELLOW 11/11/22 16:55 Urine Clarity CLEAR (CLEAR) 11/11/22 16:55 Urine pH 5.5 PH (5.0-7.5) 11/11/22 16:55 Ur Specific [place] 1.010 (1.002-1.030) 11/11/22 16:55 Urine Protein NEGATIVE mg/dL (NEGATIVE) 11/11/22 16:55 Urine Glucose (UA) NEGATIVE mg/dL (NEGATIVE) 11/11/22 16:55 Urine Ketones NEGATIVE mg/dL (NEGATIVE) 11/11/22 16:55 Urine Occult Blood SMALL (NEGATIVE) H 11/11/22 16:55 Urine Nitrite NEGATIVE (NEGATIVE) 11/11/22 16:55 Urine Bilirubin NEGATIVE (NEGATIVE) 11/11/22 16:55 Urine Urobilinogen 0.2 (NORMAL) E.U./dL (NORMAL) 11/11/22 16:55 Ur Leukocyte Esterase NEGATIVE (NEGATIVE) 11/11/22 16:55 Urine RBC 0-5 /HPF (0-5) 11/11/22 16:55 Urine WBC 4-5 /HPF (0-5) 11/11/22 16:55 Ur Squamous Epith Cells FEW Squamous (<= Few) 11/11/22 16:55 Urine Crystals 3-5 Calcium Oxalate /LPF 11/11/22 16:55 Urine Bacteria Few /HPF (None Seen) 11/11/22 16:55 Urine Casts 0-2 Granular Casts /LPF 11/10/22 14:23 Ur Microscopic Review INDICATED 11/10/22 14:23 Urine Culture Comments NOT INDICATED 11/11/22 16:55 Nasal Adenovirus (PCR) NOT DETECTED 11/10/22 15:25 Nasal B. parapertussis DNA (PCR) NOT DETECTED 11/10/22 15:25 Nasal Coronavir 229E PCR NOT DETECTED 11/10/22 15:25 Nasal Coronavir HKU1 PCR NOT DETECTED 11/10/22 15:25 Nasal Coronavir NL63 PCR NOT DETECTED 11/10/22 15:25 Nasal Coronavir OC43 PCR NOT DETECTED 11/10/22 15:25 Nasal Enterovir/Rhinovir PCR NOT DETECTED 11/10/22 15:25 Nasal Influenza B PCR NOT DETECTED 11/10/22 15:25 Nasal Influenza A PCR NOT DETECTED 11/10/22 15:25 Nasal Parainfluen 1 PCR NOT DETECTED 11/10/22 15:25 Nasal Parainfluen 2 PCR NOT DETECTED 11/10/22 15:25 Nasal Parainfluen 3 PCR NOT DETECTED 11/10/22 15:25 Nasal Parainfluen 4 PCR NOT DETECTED 11/10/22 15:25 Nasal RSV (PCR) NOT DETECTED 11/10/22 15:25 Nasal B.pertussis DNA PCR NOT DETECTED 11/10/22 15:25 Nasal C.pneumoniae (PCR) NOT DETECTED 11/10/22 15:25 [place] Human Metapneumo PCR NOT DETECTED 11/10/22 15:25 Nasal M.pneumoniae (PCR) NOT DETECTED 11/10/22 15:25 Nasal SARS-CoV-2 (PCR) NOT DETECTED 11/10/22 15:25 Stl C. diff Tox B Gene NEGATIVE (NEGATIVE) 11/11/22 18:50
--- NOTE | 2022-11-14 08:45 | XRAY Report ---
PROCEDURE: Chest 1 View X-Ray INDICATIONS: Fever, cough, diarrhea TECHNIQUE: One view of the chest was acquired. COMPARISON: 11/12/2022. FINDINGS: Surgical changes and devices: Left chest Port-A-Cath. Lungs and pleura: No pleural effusions or pneumothorax. Interval increase in diffuse interstitial ch anges consistent with acute infiltrates. Consider viral pneumonitis versus interstitial pulmonary malcolm ma. Mediastinum: Mediastinal contours appear normal. Heart size is normal. Bones and chest wall: No suspicious bony lesions. Overlying soft tissues appear unremarkable. IMPRESSION: Worsening pulmonary status. Diffuse bilateral interstitial infiltrates. Consider viral pneumonitis ve rsus interstitial pulmonary edema. Reviewed by: Macario Jolly MD on 11/14/2022 8:44 AM PST Approved by: Macario Jolly MD on 11/14/2022 8:44 AM PST Station ID: [id number]
[2022-11-14] MEDS: FLUoxetine 10 MG CAPSULE PO SCH (08:59)
[2022-11-14] MEDS: cloNIDine 0.1 MG TABLET PO SCH ×2 (08:59→21:17)
[2022-11-14] MEDS: APIXABAN 5 MG TABLET PO SCH ×2 (08:59→21:17)
[2022-11-14 09:28] LABS: BILIRUBIN,URINE NEGATIVE (NEGATIVE); GLUCOSE, URINE (UA) 100 mg/dL (NEGATIVE); KETONES,URINE (UA) NEGATIVE (NEGATIVE); LEUKOCYTE ESTERASE, URINE NEGATIVE (NEGATIVE); NITRITE,URINE NEGATIVE (NEGATIVE); OCCULT BLOOD,URINE SMALL (NEGATIVE); PH,URINE 5.5 PH (5.0-7.5); PROTEIN,URINE NEGATIVE (NEGATIVE); UROBILINOGEN,URINE 0.2 (NORMAL) E.U./dL (NORMAL)
[2022-11-14 09:35] LABS: CLARITY,URINE CLEAR (CLEAR)
[2022-11-14 09:36] LABS: BACTERIA,URINE Few /HPF (None Seen); RBC,URINE 0-5 /HPF (0-5); SQUAMOUS EPITHELIAL CELL,UR FEW Squamous (<= Few); WBC,URINE 0-3 /HPF (0-5)
[2022-11-14 10:13] LABS: B. PARAPERTUSSIS- RESP PCR PAN NOT DETECTED; B. PERTUSSIS- RESP PCR PANEL NOT DETECTED; C. PNEUMONIAE- RESP PCR PANEL NOT DETECTED; CORONAVIRUS 229E-RESP PCR NOT DETECTED; CORONAVIRUS HKU1-RESP PCR NOT DETECTED; CORONAVIRUS NL63-RESP PCR NOT DETECTED; CORONAVIRUS OC43-RESP PCR NOT DETECTED; HUMAN METAPNEUMOVIRUS NOT DETECTED; INFLUENZA A- RESP PCR PANEL NOT DETECTED; INFLUENZA B - RESP PCR PANEL NOT DETECTED; M. PNEUMONIAE- RESP PCR PANEL NOT DETECTED; PARAINFLUENZA VIRUS 1 NOT DETECTED; PARAINFLUENZA VIRUS 2 NOT DETECTED; PARAINFLUENZA VIRUS 3 NOT DETECTED; PARAINFLUENZA VIRUS 4 NOT DETECTED; RHINOVIRUS/ENTEROVIRUS NOT DETECTED; RSV- RESP PCR PANEL NOT DETECTED; SARS-CoV-2 -RESP PCR PANEL NOT DETECTED
[2022-11-14] MEDS ORDERED: levoFLOXacin 750 MG/150 ML 750 MG/150 ML BAG IV SCH (13:00)
[2022-11-14] MEDS ORDERED: AZITHROMYCIN INJ 500 MG in SODIUM CHLORIDE 0.9% 250 ML IV STA (13:21)
[2022-11-14] MEDS: ONDANSETRON 4 MG/2 ML VIAL IVP PRN (14:57)
[2022-11-14] MEDS ORDERED: PRAZOSIN 1 MG CAPSULE PO ONE (15:11)
[2022-11-14] MEDS: LINEZOLID 600 MG/300 ML 600 MG/300 ML BAG IV SCH (17:19)
[2022-11-14] MEDS: SACCHAROMYCES BOULARDII 250 MG CAPSULE PO SCH (18:43)
[2022-11-14] MEDS: ATORVASTATIN 40 MG TABLET PO SCH (21:17)
[2022-11-15] MEDS: SODIUM CHLORIDE FLUSH 0.9% 10 ML SYRINGE IVP SCH ×3 (00:45→17:11)
[2022-11-15] MEDS ORDERED: cloNIDine 0.1 MG TABLET PO STA (02:56)
--- NOTE | 2022-11-15 02:59 | PROVIDER PROGRESS NOTE ---
Intervention Nurse Note - Intervention Nurse Note Intervention Nurse Note: Consult Information Member Facility: [facility] Facility Requesting Clinician: POPPY STANTON Patient Name: Unique Adler Date of : 1970 Gender: Female Reason for Consult Reason for Consult: Abnormal Vital Clinical Note Clinical Note: per rn - "Patient admitted for dehydration and GABE. Patient has a history of high blood pressure. Patient's current blood pressure is 190/99, pulse 75, 36.7, 16. Patient denies pain. Physician has been monitoring blood pressure and has recently adjusted medication by increasing clonodine and prazosin. Did note in chart hydralazine was not a choice for this patient. Patient will be getting trandate 700 mg in am. Is there anything else you want for patient's b/p at this time?" clonidine 0.1 mg x 1 dose now
[2022-11-15 05:07] LABS: BASOPHILS % (AUTO) 0.7 %; EOSINOPHILS % (AUTO) 2.5 %; HCT - HEMATOCRIT 30.4 % (37.0-47.0); HGB - HEMOGLOBIN 10.3 g/dL (12.0-16.0); LYMPHOCYTES % (AUTO) 21.4 %; MEAN CORPUSCULAR HEMOGLOBIN 29.5 pg (27.0-31.0); MEAN CORPUSCULAR HGB CONC 33.9 g/dL (32.0-36.0); MEAN CORPUSCULAR VOLUME 87.1 fL (81.0-99.0); MEAN PLATELET VOLUME 10.5 fL (7.9-10.8); MONOCYTES % (AUTO) 11.8 %; NEUTROPHILS % (AUTO) 63.3 %; PLT - PLATELET COUNT 262 10^3/uL (130-450); RED BLOOD COUNT 3.49 10^6/uL (4.20-5.40); RED CELL DISTRIBUTION WIDTH 13.6 % (12.0-15.0); WHITE BLOOD COUNT 15.3 x10^3/uL (4.8-10.8)
[2022-11-15 05:10] LABS: ABNORMAL LYMPHS % (MANUAL) 0 %; BAND NEUTROPHILS % (MANUAL) 0 %
[2022-11-15 05:14] LABS: CALCIUM 8.8 mg/dL (8.5-10.3); CREATININE 2.9 mg/dL (0.4-1.0); MAGNESIUM 1.4 mg/dL (1.7-2.8); POTASSIUM 3.7 mmol/L (3.5-5.0)
[2022-11-15 05:22] LABS: BASOPHILS # (MANUAL) 0.2 10^3/uL (0-0.1); BASOPHILS % (MANUAL) 1 %; DIFFERENTIAL COMMENT MANUAL DIFFERENTIAL; EOSINOPHILS # (MANUAL) 0.2 10^3/uL (0-0.7); LYMPHOCYTES % (MANUAL) 26 %; MONOCYTES # (MANUAL) 0.6 10^3/uL (0.0-1.0); NEUTROPHILS # (MANUAL) 10.4 10^3/uL (1.5-6.6); PLATELET ESTIMATE, MANUAL NORMAL (130-450,000) (NORMAL); PLATELET MORPHOLOGY NORMAL APPEARANCE (NORMAL); RBC MORPHOLOGY (MULTIPLE) NORMAL APPEARANCE (NORMAL); WBC MORPHOLOGY (MULTIPLE) NORMAL APPEARANCE (NORMAL)
[2022-11-15] MEDS: GABAPENTIN 400 MG CAPSULE PO SCH ×3 (06:00→21:30)
[2022-11-15] MEDS: DEXTROSE 5%-0.9% NACL 1,000 ML IV SCH (06:00)
[2022-11-15] MEDS: LABETALOL 100 MG TABLET PO SCH ×3 (06:00→21:30)
[2022-11-15] MEDS: LINEZOLID 600 MG/300 ML 600 MG/300 ML BAG IV SCH ×2 (06:01→17:07)
[2022-11-15] MEDS: LABETALOL 300 MG TABLET PO SCH ×3 (07:47→21:30)
[2022-11-15] MEDS: cloNIDine 0.1 MG TABLET PO SCH ×3 (08:04→21:30)
[2022-11-15] MEDS: AZITHROMYCIN 250 MG TABLET PO SCH (08:04)
[2022-11-15] MEDS: APIXABAN 5 MG TABLET PO SCH ×2 (08:04→21:31)
[2022-11-15] MEDS: SACCHAROMYCES BOULARDII 250 MG CAPSULE PO SCH ×2 (08:04→17:11)
[2022-11-15] MEDS: FLUoxetine 10 MG CAPSULE PO SCH (08:04)
[2022-11-15] MEDS: PRAZOSIN 1 MG CAPSULE PO SCH (12:46)
--- NOTE | 2022-11-15 16:25 | PROVIDER PROGRESS NOTE ---
Subjective - Prog Note Date Prog Note Date: 11/15/22 Prog Note Time: 16:25 - Subjective Subjective: Last night her blood pressure went to 190/99. Telemedicine was called. They gave her a dose of clonidine 0.1 mg. She is tearful. Emotionally labile. Not happy with the sequencing of how medications are given on hospital schedule not her schedule. She denies chest pain, headache, edema, shortness of breath.Cough is a dry cough. Lisinopril has not been resumed.No urgency, frequency, headache. No sore throat. She wanted to know what the goal for creatinine was for her to be discharged. I explained that we would be happy if she would drop below 2. Baseline for her is 1.0-0.8. She again reiterates a history of being sick in April and at that time creatinine was 5.3 associated with diarrhea. This time she feels like everything was "fine". [place] good 1 day and the next day she felt terrible. Nausea. She is not taking any new vitamin supplements. She does not take any nonsteroidals. She denies any abdominal pain. She also wanted to know with her echo showed. A copy of her echocardiogram was given to her. I explained that at this point in time we see some mild aortic regurgitation but not much else. Current Medications - Current Medications Current Medications: Active Medications Acetaminophen (Acetaminophen 325 Mg Tablet) 650 mg PO Q4HR PRN PRN Reason: Pain 1 to 4, or Fever Apixaban (Apixaban 5 Mg Tablet) 5 mg PO BID [facility] Last Admin: 11/15/22 08:04 Dose: 5 mg Atorvastatin Calcium (Atorvastatin 40 Mg Tablet) 40 mg PO HS [facility] Last Admin: 11/14/22 21:17 Dose: 40 mg Azithromycin (Azithromycin 250 Mg Tablet) 250 mg PO DAILY [facility] Stop: 11/19/22 00:01 Last Admin: 11/15/22 08:04 Dose: 250 mg Clonidine HCl (Clonidine 0.1 Mg Tablet) 0.2 mg PO TID [facility] Last Admin: 11/15/22 14:57 Dose: 0.2 mg Cyclobenzaprine HCl (Cyclobenzaprine 10 Mg Tablet) 5 mg PO TID PRN PRN Reason: Spasms Fluoxetine HCl (Fluoxetine 10 Mg Capsule) 40 mg PO DAILY [facility] Last Admin: 11/15/22 08:04 Dose: 40 mg Gabapentin (Gabapentin 400 Mg Capsule) 800 mg PO TID [facility] Last Admin: 11/15/22 14:16 Dose: 800 mg Dextrose/Sodium Chloride (D5ns) 1,000 mls @ 60 mls/hr IV .[id number] [facility] Last Admin: 11/15/22 06:00 Dose: 60 mls/hr Linezolid (Zyvox 600 Mg/300 Ml) 600 mg in 300 mls @ 300 mls/hr IV Q12H [facility] Last Admin: 11/15/22 06:01 Dose: 300 mls/hr Labetalol HCl (Labetalol 300 Mg Tablet) 600 mg PO TID [facility] Last Admin: 11/15/22 14:16 Dose: 600 mg Labetalol HCl (Labetalol 100 Mg Tablet) 100 mg PO TID [facility] Last Admin: 11/15/22 14:16 Dose: 100 mg Ondansetron HCl (Ondansetron 4 Mg/2 Ml Vial) 4 mg IVP Q6HR PRN PRN Reason: Nausea / Vomiting Last Admin: 11/14/22 14:57 Dose: 4 mg Prazosin HCl (Prazosin 1 Mg Capsule) 1 mg PO 1200 [facility] Last Admin: 11/15/22 12:46 Dose: 1 mg Prochlorperazine Edisylate (Prochlorperazine 10 Mg/2 Ml Vial) 10 mg IVP Q6HR PRN PRN Reason: Nausea / Vomiting Saccharomyces Boulardii (Saccharomyces Boulardii 250 Mg Capsule) 250 mg PO BIDWM [facility] Last Admin: 11/15/22 08:04 Dose: 250 mg Sodium Chloride (Sodium Chloride Flush 0.9% 10 Ml Syringe) 10 ml IVP PRN PRN PRN Reason: NEEDED PER PROVIDER ORDERS Sodium Chloride (Sodium Chloride Flush 0.9% 10 Ml Syringe) 10 ml IVP 0100,090 0,1700 [facility] Last Admin: 11/15/22 08:05 Dose: 10 ml Cyclobenzaprine HCl 5 mg PO TID 04/24/19 Fluoxetine HCl [Prozac] 40 mg PO DAILY 04/24/19 Gabapentin [Neurontin] 800 mg PO TID 04/24/19 Rivaroxaban [Xarelto] 20 mg PO QDDINNER 05/05/22 Atorvastatin Calcium 40 mg PO HS 11/11/22 Furosemide [Lasix] 20 mg PO DAILY 11/11/22 Labetalol [Trandate] 700 mg PO TID 11/11/22 Lisinopril [Zestril] 15 mg PO HS 11/11/22 Objective - Vital Signs/Intake & Output Vital Signs: Vital Signs x48h Temp Pulse Resp BP Pulse Ox 11/15/22 11:34 36.4 C L 63 20 181/73 H 92 Intake & Output: Intake & Output 11/12/22 11/13/22 11/14/22 11/15/22 23:59 23:59 23:59 23:59 Intake Total 7426.993 4885.000 5037.333 1921 Output Total 1200 Balance 7426.993 4885.000 3837.333 1921 - Lab Results Fish Bones: 11/15/22 04:30 11/15/22 04:30 Other Labs: Lab Results x24hrs 11/15/22 11/15/22 Range/Units 04:30 04:30 WBC 15.3 H (4.8-10.8) x10^3/uL RBC 3.49 L (4.20-5.40) 10^6/uL Hgb 10.3 L (12.0-16.0) g/dL Hct 30.4 L (37.0-47.0) % MCV 87.1 (81.0-99.0) fL MCH 29.5 (27.0-31.0) pg MCHC 33.9 (32.0-36.0) g/dL RDW 13.6 (12.0-15.0) % Plt Count 262 (130-450) 10^3/uL MPV 10.5 (7.9-10.8) fL Neut # (Auto) Not Reportable Lymph # (Auto) Not Reportable Lamb # (Auto) Not Reportable Eos # (Auto) Not Reportable Baso # (Auto) Not Reportable Absolute Nucleated RBC Not Reportable Total Counted 100 Band Neuts % (Manual) 0 (0 - 10) % Abnorm Lymph % (Manual) 0 % Nucleated RBC % Not Reportable Neutrophils # (Manual) 10.4 H (1.5-6.6) 10^3/uL Lymphocytes # (Manual) 4.0 H (1.5-3.5) 10^3/uL Monocytes # (Manual) 0.6 (0.0-1.0) 10^3/uL Eosinophils # (Manual) 0.2 (0-0.7) 10^3/uL Basophils # (Manual) 0.2 H (0-0.1) 10^3/uL Differential Comment MANUAL DIFFERENTIAL WBC Morphology NORMAL APPEARANCE (NORMAL) Platelet Estimate NORMAL (130-450,000) (NORMAL) Platelet Morphology NORMAL APPEARANCE (NORMAL) RBC Morph Micro Appear NORMAL APPEARANCE (NORMAL) Sodium 139 (135-145) mmol/L Potassium 3.7 (3.5-5.0) mmol/L Chloride 103 (101-111) mmol/L Carbon Dioxide 24 (21-32) mmol/L Anion Gap 12.0 (6-13) BUN 38 H (6-20) mg/dL Creatinine 2.9 H (0.4-1.0) mg/dL Estimated GFR (MDRD) 17 L (>89) Glucose 106 H (70-100) mg/dL Calcium 8.8 (8.5-10.3) mg/dL Magnesium 1.4 L (1.7-2.8) mg/dL ABX Reporting Has patient been on IV antibiotics over the past 48 hours?: Yes Assessment/Plan - Problem List (1) Acute kidney injury Impression: She was clinically dehydrated and has prerenal azotemia and possibly ATN from hypotension. We started her on iv fluids since ER and continued. Her creatinine first increased from 6.1 to 6.8, then improved to 5.8>> 4.1>> 3.5 today She did have protein and granular casts seen on her U/A suggesting she may have CKD. Plan: Continue IV fluid replacement, we decreased iv rate due to elevated BNP (see #3) Avoid nephrotoxins Follow BMP daily (2) Fever Impression: She spiked a fever of 38 degrees C at midnight of 11/14. It does not appear that any blood cultures were drawn or anything new ordered by the [facility] night doctor. Her diarrhea has been tested for C. diff and that was neg Her WBC count has risen again: 22 at admission>> 16>> 15>> 14.8 yesterday>> 15.3>>15.3 again today. And cause was not clear. Her CT abd did not show colitis. Blood cultures are negative at 24 hours.Urinalysis was negative. . We were worried about giving her too much IV fluids and an echo was checked and it was within normal ejection fraction. PCR panel negative for virus. Chest x- ray>> It was read as having "worsening pulmonary status, diffuse bilateral interstitial infiltrates, consider viral pneumonitis versus interstitial pulmonary edema". Zithromax and linezolid were started empirically for this fever. Today she is about the same. No clear positive review of systems for infection. Still with a dry cough. But no fever. Plan: Empiric antibiotics for an atypical pneumonia, using Zithromax, but she has been an Inpt thus will order empiric Linezolide to cover for MRSA. 3) Cough On Sat 11/12, she has a very wet and productive cough. This was after 2 days of aggressive IV fluids given. Her WBC was 22 at admission and has declined slowly to 16 >> 15 on 11/11. A chest x-ray was done that was read as having fluid overload. BNP came back at 450. Troponins were cycled and were neg for RI (12>> 11).Echocardiogram does not show congestive heart failure. Plan: Continue the decreased IV rate from 200 down to 100 down to 70 cc/h 11/14 A sputum for a respiratory culture was ordered but she cannot bring any up. (4) Hypertension Conclusion/Plan: After rehydration started and positive fluid balance, her BP is no longer 90 systolic, but is now hypertensive. There is a Hx of labile BP. Plan: We resumed her usual doses of Labetalol Will not resume her Zestril because of her ongoing renal failure and today we learned that she suffered from a cough when she took Lisinopril. Will put REBEKA-I as a side effect and avoid using it, even after [facility]. My plan had been to add Hydralazine, however her allergy list says that she had altered mental status after getting Hydralazine. Clonidine restarted twice daily yesterday. Last night she got an extra dose of clonidine. She also needed Prazosin po twice when BP very elevated around 1500 daily, thus will add Prazosin and give it every noon Increase clonidine to 0.2 mg 3 times daily. We will also add Norvasc. Check renal artery ultrasound. Consider referring to nephrology in the outpatient setting. (5) Diarrhea Conclusion/Plan: Improved. No diarrhea or BMs at all since 11/12. This presentation is similar to the record from April 2022 here. N/V/D are on and off. She had several moderately large yellow liquid BMs. The patient disclosed that she has had multiple episodes of N/V/D in her life and was never given a gastrointestinal diagnoses such as irritable bowel syndrome, Crohn's or ulcerative colitis and none of these problems run in family members. She says she underwent a colonoscopy when still in [place], does not remember how many years ago and precancerous polyps were removed then and she has had no GI follow-up after that. The pt allowed me to reach out to a prior doctor for more Hx (the surgeon who took care of her in [place], and happens to be her [id number], who happens to work at this hospital and is Dr. Marck Richter). He confirmed that there was no established Dx of why she gets such frequent nausea and vomiting. I told the pt and gilmer Lopez, at bedside today, about my discussion with Dr Marck Richter. Plan: Cont IV fluids She wants diet advanced today and I started regular diet at dinner. She can have Imodium as needed. She will need colonoscopy & outpt Gastroenterology w/u done, after this current inflammatory process has resolved. (6) N/V Conclusion/Plan: Improved. N/V was on and off. She required antiemetics IV prn Diet being advanced. The pt allowed me to reach out to a prior doctor for more Hx. He confirmed that there was no knowledge of why she gets such frequent nausea and vomiting. Plan: Advance to regular diet today, since no N/V/D today. Continue prn iv antiemetics. (7) Hypomagnesemia Conclusion/Plan: Likely from losses in vomiting and diarrhea. Plan: Replace witjh iv Mag rider Follow Mg daily. (8) Antiphospholipid antibody syndrome Conclusion/Plan: As per Hx. Plan: We will continue an anticoagulant while here (Xarelto is not on formulary, we substituted with Eliquis). (9) Proteinuria Conclusion/Plan: This pt did have protein and granular casts seen on her first U/A suggesting she may have CKD. Plan: She will likely need Nephrology outpatient management going forward, given the sever creat elevations w/ dehydration. 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
[2022-11-15] MEDS: ATORVASTATIN 40 MG TABLET PO SCH (21:30)
[2022-11-16] MEDS: SODIUM CHLORIDE FLUSH 0.9% 10 ML SYRINGE IVP SCH ×3 (00:01→18:17)
[2022-11-16] MEDS: DEXTROSE 5%-0.9% NACL 1,000 ML IV SCH ×2 (00:14→18:16)
--- NOTE | 2022-11-16 00:43 | Ultrasound Report ---
PROCEDURE: Arterial Visceral Complete INDICATIONS: high BP, renal failure TECHNIQUE: Real time scanning was performed of both kidneys, followed by Color and pulsed Doppler in terrogation of the renal vessels. COMPARISON: CT abdomen pelvis 11/13/2022 FINDINGS: Aortic peak systolic velocity: 64 cm/s. Right side: Hooker-scale imaging: Kidney is 10.7 cm long. There is mild hydronephrosis. No definite shadowing nep hrolithiasis. Renal cortex is mildly increased in echogenicity. No suspicious solid renal masses. Proximal renal artery peak systolic velocity: 60 cm/s. Mid renal artery peak systolic velocity: 74 cm/s. Distal renal artery peak systolic velocity: 79 cm/s. Renal vein: Patent, without thrombus. Peak renal/aortic ratio (RAR): 1.2. Left side: Hooker-scale imaging: Kidney is 10.5 cm long. No hydronephrosis. No shadowing nephrolithiasis. Donna l cortex is mildly increased in echogenicity. No suspicious solid renal masses. There is a anechoic simple appearing cyst in the inferior pole measuring up to 1.2 cm. Proximal renal artery peak systolic velocity: 121 cm/s. Mid-renal artery peak systolic velocity: 75 cm/s. Distal renal artery peak systolic velocity: 77 cm/s. Renal vein: Patent, without thrombus. Peak renal/aortic ratio (RAR): 1.9. IMPRESSION: 1. No definite evidence of renal artery stenosis greater than 60%. Reviewed by: Dean Gardner MD on 11/16/2022 12:51 AM PST Approved by: Dean Gardner MD on 11/16/2022 12:51 AM PST Station ID: [id number]
[2022-11-16] MEDS: LABETALOL 100 MG TABLET PO SCH ×3 (05:28→21:54)
[2022-11-16] MEDS: LINEZOLID 600 MG/300 ML 600 MG/300 ML BAG IV SCH ×2 (05:28→18:17)
[2022-11-16] MEDS: cloNIDine 0.1 MG TABLET PO SCH ×3 (05:29→21:54)
[2022-11-16] MEDS: GABAPENTIN 400 MG CAPSULE PO SCH ×3 (05:29→21:54)
[2022-11-16] MEDS: LABETALOL 300 MG TABLET PO SCH ×3 (05:29→21:54)
[2022-11-16] MEDS: SACCHAROMYCES BOULARDII 250 MG CAPSULE PO SCH ×2 (08:08→18:18)
[2022-11-16] MEDS: APIXABAN 5 MG TABLET PO SCH ×2 (08:08→21:54)
[2022-11-16] MEDS: FLUoxetine 10 MG CAPSULE PO SCH (08:08)
[2022-11-16] MEDS: AZITHROMYCIN 250 MG TABLET PO SCH (08:08)
[2022-11-16 10:20] LABS: CALCIUM 8.8 mg/dL (8.5-10.3); CREATININE 2.7 mg/dL (0.4-1.0); POTASSIUM 3.5 mmol/L (3.5-5.0)
[2022-11-16] MEDS: PRAZOSIN 1 MG CAPSULE PO SCH (12:58)
--- NOTE | 2022-11-16 17:13 | PROVIDER PROGRESS NOTE ---
Subjective - Prog Note Date Prog Note Date: 11/16/22 Prog Note Time: 17:13 - Subjective Subjective: She says she is patiently waiting for her kidneys to get normal. She is urinating a lot. But that is because she is on IV fluids. She denies chest pain, palpitations, shortness of breath. I described to her how we adjust blood pressure medications. I choose it on the basis of volume, rate, or intrinsic type stiffness. I asked her how she is allergic to lisinopril and she is surprised. She says she is not allergic to lisinopril. She says that she was discharged on lisinopril in April. The only thing that happened was her blood pressure was a little too low and Dr. Martinez adjusted the lisinopril dose and cut it in half. But she was taking it on admission. I had given her Procardia to lower her blood pressure thinking that I could not give her lisinopril. I also did a renal artery ultrasound to look for arterial stenosis and there is no arterial stenosis. Current Medications - Current Medications Current Medications: Active Medications Acetaminophen (Acetaminophen 325 Mg Tablet) 650 mg PO Q4HR PRN PRN Reason: Pain 1 to 4, or Fever Apixaban (Apixaban 5 Mg Tablet) 5 mg PO BID [facility] Last Admin: 11/16/22 08:08 Dose: 5 mg Atorvastatin Calcium (Atorvastatin 40 Mg Tablet) 40 mg PO HS [facility] Last Admin: 11/15/22 21:30 Dose: 40 mg Azithromycin (Azithromycin 250 Mg Tablet) 250 mg PO DAILY [facility] Stop: 11/19/22 00:01 Last Admin: 11/16/22 08:08 Dose: 250 mg Clonidine HCl (Clonidine 0.1 Mg Tablet) 0.2 mg PO TID [facility] Last Admin: 11/16/22 14:25 Dose: 0.2 mg Cyclobenzaprine HCl (Cyclobenzaprine 10 Mg Tablet) 5 mg PO TID PRN PRN Reason: Spasms Fluoxetine HCl (Fluoxetine 10 Mg Capsule) 40 mg PO DAILY [facility] Last Admin: 11/16/22 08:08 Dose: 40 mg Gabapentin (Gabapentin 400 Mg Capsule) 800 mg PO TID [facility] Last Admin: 11/16/22 14:25 Dose: 800 mg Dextrose/Sodium Chloride (D5ns) 1,000 mls @ 60 mls/hr IV .[id number] [facility] Last Admin: 12/21/22 18:16 Dose: 60 mls/hr Linezolid (Zyvox 600 Mg/300 Ml) 600 mg in 300 mls @ 300 mls/hr IV Q12H [facility] Last Admin: 11/16/22 18:17 Dose: 300 mls/hr Labetalol HCl (Labetalol 300 Mg Tablet) 600 mg PO TID [facility] Last Admin: 11/16/22 14:25 Dose: 600 mg Labetalol HCl (Labetalol 100 Mg Tablet) 100 mg PO TID [facility] Last Admin: 11/16/22 14:25 Dose: 100 mg Nifedipine (Nifedipine Er 30 Mg Tablet) 30 mg PO DAILY [facility] Last Admin: 11/16/22 18:18 Dose: 30 mg Ondansetron HCl (Ondansetron 4 Mg/2 Ml Vial) 4 mg IVP Q6HR PRN PRN Reason: Nausea / Vomiting Last Admin: 11/14/22 14:57 Dose: 4 mg Prazosin HCl (Prazosin 1 Mg Capsule) 1 mg PO 1200 [facility] Last Admin: 11/16/22 12:58 Dose: 1 mg Prochlorperazine Edisylate (Prochlorperazine 10 Mg/2 Ml Vial) 10 mg IVP Q6HR PRN PRN Reason: Nausea / Vomiting Saccharomyces Boulardii (Saccharomyces Boulardii 250 Mg Capsule) 250 mg PO BID [facility] Last Admin: 11/16/22 18:18 Dose: 250 mg Sodium Chloride (Sodium Chloride Flush 0.9% 10 Ml Syringe) 10 ml IVP PRN PRN PRN Reason: NEEDED PER PROVIDER ORDERS Sodium Chloride (Sodium Chloride Flush 0.9% 10 Ml Syringe) 10 ml IVP 0100,0900,1700 [facility] Last Admin: 11/16/22 18:17 Dose: 10 ml Cyclobenzaprine HCl 5 mg PO TID 04/24/19 Fluoxetine HCl [Prozac] 40 mg PO DAILY 04/24/19 Gabapentin [Neurontin] 800 mg PO TID 04/24/19 Rivaroxaban [Xarelto] 20 mg PO QDDINNER 05/05/22 Atorvastatin Calcium 40 mg PO HS 11/11/22 Furosemide [Lasix] 20 mg PO DAILY 11/11/22 Labetalol [Trandate] 700 mg PO TID 11/11/22 Lisinopril [Zestril] 15 mg PO HS 11/11/22 Objective - Vital Signs/Intake & Output Reviewed Vital Signs: Yes Vital Signs: Vital Signs x48h Temp Pulse Resp BP BP Pulse Ox 11/16/22 16:07 36.6 C 64 18 191/117 H 209/117 H 98 11/16/22 13:02 36.5 C 63 18 158/93 H 98 Intake & Output: Intake & Output 11/13/22 11/14/22 11/15/22 11/16/22 23:59 23:59 23:59 23:59 Intake Total 4885.000 5037.333 3521 1360 Output Total 1200 Balance 4885.000 3837.333 3521 1360 - Objective General Appearance: positive: No acute distress, Alert, Other (Reading a book. Her significant other John is not at the bedside today.She says that her abdomen feels bloated and she has a lot of bowel cramps. Like she has to go to the bathroom) Eyes Bilateral: positive: PERRL, EOMI ENT: positive: No signs of dehydration Neck: positive: No JVD. negative: Stiff neck Respiratory: positive: No respiratory distress. negative: Wheezes, Rales, Rhonchi Cardiovascular: positive: Regular rate & rhythm Abdomen: positive: Other (Bloated and distended. Tympanitic but normal bowel sounds. Mild discomfort diffusely with palpation. But no rebound or guarding.) Skin: positive: Warm, Dry Extremities: positive: Full ROM, No pedal edema Neurologic/Psychiatric: positive: Oriented x3, CN's nml (2-12), Motor nml - Lab Results Fish Bones: 11/15/22 04:30 11/16/22 09:40 Other Labs: Lab Results x24hrs 11/16/22 Range/Units 09:40 Sodium 134 L (135-145) mmol/L Potassium 3.5 (3.5-5.0) mmol/L Chloride 97 L (101-111) mmol/L Carbon Dioxide 26 (21-32) mmol/L Anion Gap 11.0 (6-13) BUN 38 H (6-20) mg/dL Creatinine 2.7 H (0.4-1.0) mg/dL Estimated GFR (MDRD) 18 L (>89) Glucose 169 H (70-100) mg/dL Calcium 8.8 (8.5-10.3) mg/dL Assessment/Plan - Problem List (1) Acute kidney injury Impression: She was clinically dehydrated and has prerenal azotemia and possibly ATN from hypotension. We started her on iv fluids since ER and continued. Her creatinine first increased from 6.1 to 6.8, then improved to 5.8>> 4.1>> 3.5>>2.9>>2.7 today She did have protein and granular casts seen on her U/A suggesting she may have CKD. I did a renal artery ultrasound today and there is no renal artery stenosis. Plan: Continue IV fluid replacement, we decreased iv rate due to elevated BNP (see #3 ). My goal is to get her below 2.0 and then she can go home Avoid nephrotoxins Follow BMP daily Referral in the outpatient setting to nephrology to see if they could cast some light on management of her blood pressure and disease (2) Fever Impression: She spiked a fever of 38 degrees C at midnight of 11/14. It does not appear that any blood cultures were drawn or anything new ordered by the telemedicine night doctor. Today she coughed up a piece of phlegm that is brownish-yellow and wanted me to look at it. Her diarrhea had been tested for C. diff and that was neg Her WBC count has risen again: 22 at admission>> 16>> 15>> 14.8 yesterday>> 15.3>>15.3 again today. And cause was not clear. Her CT abd did not show colitis. Blood cultures are negative at 24 hours.Urinalysis was negative. . We were worried about giving her too much IV fluids and an echo was checked and it was within normal ejection fraction. PCR panel negative for virus. Chest x-ray >> It was read as having "worsening pulmonary status, diffuse bilateral interstitial infiltrates, consider viral pneumonitis versus interstitial pulmonary edema". Zithromax and linezolid were started empirically for this fever. Cough is mild today. Dry. Producing phlegm only once. Plan: Empiric antibiotics for an atypical pneumonia, using Zithromax, but she has been an Inpt thus will order empiric Linezolide to cover for MRSA. Check CBC tomorrow morning. 3) Cough On Sat 11/12, she has a very wet and productive cough. This was after 2 days of aggressive IV fluids given. Her WBC was 22 at admission and has declined slowly to 16 >> 15 on 11/11. A chest x-ray was done that was read as having fluid overload. BNP came back at 450. Troponins were cycled and were neg for [place] (12>> 11).Echocardiogram does not show congestive heart failure. Plan: Continue the decreased IV rate from 200 down to 100 down to 70 cc/h 11/14 A sputum for a respiratory culture was ordered but she cannot bring any up.Which she brought up and showed me on a napkin is a very small dollop of yellowish- green phlegm. (4) Hypertension Conclusion/Plan: After rehydration started and positive fluid balance, her BP is no longer 90 systolic, but is now hypertensive. There is a Hx of labile BP. Plan: We resumed her usual doses of Labetalol Will not resume her Zestril because of her ongoing renal failure and today we learned that she suffered from a cough when she took Lisinopril. Will put REBEKA-I as a side effect and avoid using it, even after [facility].I had thought to use lisinopril today. But with reading this, we will hold off. My plan had been to add Hydralazine, however her allergy list says that she had altered mental status after getting Hydralazine. Clonidine restarted twice daily November 14. I increased it to 3 times a day on November 15. She also needed Prazosin po twice when BP very elevated around 1500 daily, thusThe previous hospitalist added prazosin and gave it at noon. Renal artery ultrasound negative. She is allergic to Norvasc. I will give Procardia today. (5) Diarrhea Conclusion/Plan: Improved. No diarrhea or BMs at all since 11/12. This presentation is similar to the record from April 2022 here. N/V/D are on and off. She had several moderately large yellow liquid BMs. The patient disclosed that she has had multiple episodes of N/V/D in her life and was never given a gastrointestinal diagnoses such as irritable bowel syndrome, Crohn's or ulcerative colitis and none of these problems run in family members. She says she underwent a colonoscopy when still in [place], does not r emember how many years ago and precancerous polyps were removed then and she has had no GI follow-up after that. The pt allowed me to reach out to a prior doctor for more Hx (the surgeon who took care of her in [place], and happens to be her [id number], who happens to work at this hospital and is Dr. Marck Richter). He confirmed that there was no established Dx of why she gets such frequent nausea and vomiting. I told the pt and gilmer Lopez, at bedside today, about my discussion with Dr Marck Richter. I started a regular diet at dinner on November 15. She is a little bit bloated today. But otherwise benign abdomen. Plan: This patient should get an outpatient colonoscopy. (6) N/V Conclusion/Plan: Nausea is only minimal. Emesis has resolved. She required antiemetics IV prn She is now on a regular diet. The pt allowed me to reach out to a prior doctor for more Hx. He confirmed that there was no knowledge of why she gets such frequent nausea and vomiting. Plan: Continue prn iv antiemetics. (7) Hypomagnesemia Conclusion/Plan: Likely from losses in vomiting and diarrhea. Plan: Replace witjh iv Mag rider Follow Mg daily. (8) Antiphospholipid antibody syndrome Conclusion/Plan: As per Hx. Plan: We will continue an anticoagulant while here (Xarelto is not on formulary, we substituted with Eliquis). (9) Proteinuria Conclusion/Plan: This pt did have protein and granular casts seen on her first U/A suggesting she may have CKD. Plan: She will likely need Nephrology outpatient management going forward, given the sever creat elevations w/ dehydration. 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
[2022-11-16] MEDS: NIFEdipine ER 30 MG TABLET PO SCH (18:18)
[2022-11-16] MEDS: ATORVASTATIN 40 MG TABLET PO SCH (21:55)
[2022-11-17] MEDS: SODIUM CHLORIDE FLUSH 0.9% 10 ML SYRINGE IVP SCH ×3 (00:01→16:47)
[2022-11-17] MEDS: LABETALOL 100 MG TABLET PO SCH ×3 (05:27→21:51)
[2022-11-17] MEDS: cloNIDine 0.1 MG TABLET PO SCH ×3 (05:27→21:52)
[2022-11-17] MEDS: LINEZOLID 600 MG/300 ML 600 MG/300 ML BAG IV SCH ×2 (05:27→16:47)
[2022-11-17] MEDS: GABAPENTIN 400 MG CAPSULE PO SCH ×3 (05:27→21:52)
[2022-11-17] MEDS: LABETALOL 300 MG TABLET PO SCH ×3 (05:27→21:52)
[2022-11-17 05:39] LABS: BASOPHILS # (AUTO) 0.1 10^3/uL (0.0-0.1); BASOPHILS % (AUTO) 0.8 %; EOSINOPHILS # (AUTO) 0.5 10^3/uL (0.0-0.7); EOSINOPHILS % (AUTO) 3.7 %; HCT - HEMATOCRIT 32.5 % (37.0-47.0); HGB - HEMOGLOBIN 11.3 g/dL (12.0-16.0); LYMPHOCYTES # (AUTO) 2.8 10^3/uL (1.5-3.5); LYMPHOCYTES % (AUTO) 21.5 %; MEAN CORPUSCULAR HEMOGLOBIN 30.1 pg (27.0-31.0); MEAN CORPUSCULAR HGB CONC 34.8 g/dL (32.0-36.0); MEAN CORPUSCULAR VOLUME 86.4 fL (81.0-99.0); MONOCYTES # (AUTO) 1.4 10^3/uL (0.0-1.0); MONOCYTES % (AUTO) 10.4 %; NEUTROPHILS # (AUTO) 8.3 10^3/uL (1.5-6.6); NEUTROPHILS % (AUTO) 63.2 %; PLT - PLATELET COUNT 322 10^3/uL (130-450); RED BLOOD COUNT 3.76 10^6/uL (4.20-5.40); RED CELL DISTRIBUTION WIDTH 13.1 % (12.0-15.0); WHITE BLOOD COUNT 13.1 x10^3/uL (4.8-10.8)
[2022-11-17 05:47] LABS: CALCIUM 8.9 mg/dL (8.5-10.3); CREATININE 2.5 mg/dL (0.4-1.0); POTASSIUM 3.7 mmol/L (3.5-5.0)
[2022-11-17] MEDS: FLUoxetine 10 MG CAPSULE PO SCH (08:59)
[2022-11-17] MEDS: NIFEdipine ER 30 MG TABLET PO SCH (09:01)
[2022-11-17] MEDS: APIXABAN 5 MG TABLET PO SCH ×2 (09:01→21:52)
[2022-11-17] MEDS: AZITHROMYCIN 250 MG TABLET PO SCH (09:01)
[2022-11-17] MEDS: SACCHAROMYCES BOULARDII 250 MG CAPSULE PO SCH ×2 (09:01→16:47)
[2022-11-17] MEDS: PRAZOSIN 1 MG CAPSULE PO SCH (12:22)
[2022-11-17] MEDS: lisinopriL 5 MG TABLET PO SCH (12:41)
[2022-11-17] MEDS: DEXTROSE 5%-0.9% NACL 1,000 ML IV SCH ×2 (12:41→21:54)
--- NOTE | 2022-11-17 15:42 | PROVIDER PROGRESS NOTE ---
Subjective - Prog Note Date Prog Note Date: 11/17/22 Prog Note Time: 15:40 - Subjective Subjective: Although she has episodes of nausea and had emesis with her eggs this morning, she overall feels well. No diarrhea. She gets anxious about her blood press ure. She really wanted to resume her lisinopril. I explained that there was a problem with cough and lisinopril but she says that she would like to stay on it. No chest pain, palpitations, shortness of breath. No abdominal pain. No leg pain Current Medications - Current Medications Current Medications: Active Medications Acetaminophen (Acetaminophen 325 Mg Tablet) 650 mg PO Q4HR PRN PRN Reason: Pain 1 to 4, or Fever Apixaban (Apixaban 5 Mg Tablet) 5 mg PO BID [facility] Last Admin: 11/17/22 09:01 Dose: 5 mg Atorvastatin Calcium (Atorvastatin 40 Mg Tablet) 40 mg PO HS [facility] Last Admin: 11/16/22 21:55 Dose: 40 mg Azithromycin (Azithromycin 250 Mg Tablet) 250 mg PO DAILY [facility] Stop: 11/19/22 00:01 Last Admin: 11/17/22 09:01 Dose: 250 mg Clonidine HCl (Clonidine 0.1 Mg Tablet) 0.2 mg PO TID [facility] Last Admin: 11/17/22 13:52 Dose: 0.2 mg Cyclobenzaprine HCl (Cyclobenzaprine 10 Mg Tablet) 5 mg PO TID PRN PRN Reason: Spasms Fluoxetine HCl (Fluoxetine 10 Mg Capsule) 40 mg PO DAILY [facility] Last Admin: 11/17/22 08:59 Dose: 40 mg Gabapentin (Gabapentin 400 Mg Capsule) 800 mg PO TID [facility] Last Admin: 11/17/22 13:52 Dose: 800 mg Dextrose/Sodium Chloride (D5ns) 1,000 mls @ 60 mls/hr IV .[id number] [facility] Last Admin: 11/17/22 12:41 Dose: 60 mls/hr Linezolid (Zyvox 600 Mg/300 Ml) 600 mg in 300 mls @ 300 mls/hr IV Q12H [facility] Last Infusion: 11/17/22 06:33 Dose: Infused Labetalol HCl (Labetalol 300 Mg Tablet) 600 mg PO TID [facility] Last Admin: 11/17/22 13:53 Dose: 600 mg Labetalol HCl (Labetalol 100 Mg Tablet) 100 mg PO TID [facility] Last Admin: 11/17/22 13:52 Dose: 100 mg Lisinopril (Lisinopril 5 Mg Tablet) 15 mg PO DAILY [facility] Last Admin: 11/17/22 12:41 Dose: 15 mg Nifedipine (Nifedipine Er 30 Mg Tablet) 30 mg PO DAILY [facility] Last Admin: 11/17/22 09:01 Dose: 30 mg Ondansetron HCl (Ondansetron 4 Mg/2 Ml Vial) 4 mg IVP Q6HR PRN PRN Reason: Nausea / Vomiting Last Admin: 11/14/22 14:57 Dose: 4 mg Prazosin HCl (Prazosin 1 Mg Capsule) 1 mg PO 1200 [facility] Last Admin: 11/17/22 12:22 Dose: 1 mg Prochlorperazine Edisylate (Prochlorperazine 10 Mg/2 Ml Vial) 10 mg IVP Q6HR PRN PRN Reason: Nausea / Vomiting Saccharomyces Boulardii (Saccharomyces Boulardii 250 Mg Capsule) 250 mg PO BIDWM [facility] Last Admin: 11/17/22 09:01 Dose: 250 mg Sodium Chloride (Sodium Chloride Flush 0.9% 10 Ml Syringe) 10 ml IVP PRN PRN PRN Reason: NEEDED PER PROVIDER ORDERS Sodium Chloride (Sodium Chloride Flush 0.9% 10 Ml Syringe) 10 ml IVP 0100,0900,1700 [facility] Last Admin: 11/17/22 08:59 Dose: 10 ml Cyclobenzaprine HCl 5 mg PO TID 04/24/19 Fluoxetine HCl [Prozac] 40 mg PO DAILY 04/24/19 Gabapentin [Neurontin] 800 mg PO TID 04/24/19 Rivaroxaban [Xarelto] 20 mg PO QDDINNER 05/05/22 Atorvastatin Calcium 40 mg PO HS 11/11/22 Furosemide [Lasix] 20 mg PO DAILY 11/11/22 Labetalol [Trandate] 700 mg PO TID 11/11/22 Lisinopril [Zestril] 15 mg PO HS 11/11/22 Objective - Vital Signs/Intake & Output Reviewed Vital Signs: Yes Vital Signs: Vital Signs x48h Temp Pulse Resp BP Pulse Ox 11/17/22 12:00 36.2 C L 63 18 147/95 H 11/17/22 08:39 36.3 C L 62 16 107/58 L 99 Intake & Output: Intake & Output 11/14/22 11/15/22 11/16/22 11/17/22 23:59 23:59 23:59 23:59 Intake Total 5037.333 3521 2900 2240 Output Total 1200 Balance 3837.333 3521 2900 2240 - Objective General Appearance: positive: No acute distress, Alert, Other (Older looking than stated age. Speech is normal.) Eyes Bilateral: positive: PERRL, EOMI ENT: positive: No signs of dehydration Neck: positive: No JVD. negative: Stiff neck Respiratory: positive: No respiratory distress. negative: Wheezes, Rales, Rhonchi Cardiovascular: positive: Regular rate & rhythm Abdomen: positive: Non-tender, No organomegaly, Nml bowel sounds, No distention Skin: positive: Warm, Dry Extremities: positive: Full ROM, No pedal edema Neurologic/Psychiatric: positive: Oriented x3, CN's nml (2-12), Motor nml - Lab Results Fish Bones: 11/17/22 05:25 11/17/22 05:25 Other Labs: Lab Results x24hrs 11/17/22 11/17/22 Range/Units 05:25 05:25 WBC 13.1 H (4.8-10.8) x10^3/uL RBC 3.76 L (4.20-5.40) 10^6/uL Hgb 11.3 L (12.0-16.0) g/dL Hct 32.5 L (37.0-47.0) % MCV 86.4 (81.0-99.0) fL MCH 30.1 (27.0-31.0) pg MCHC 34.8 (32.0-36.0) g/dL RDW 13.1 (12.0-15.0) % Plt Count 322 (130-450) 10^3/uL MPV 10.0 (7.9-10.8) fL Neut # (Auto) 8.3 H (1.5-6.6) 10^3/uL Lymph # (Auto) 2.8 (1.5-3.5) 10^3/uL Logan # (Auto) 1.4 H (0.0-1.0) 10^3/uL Eos # (Auto) 0.5 (0.0-0.7) 10^3/uL Baso # (Auto) 0.1 (0.0-0.1) 10^3/uL Absolute Nucleated RBC 0.00 x10^3/uL Nucleated RBC % 0.0 /100WBC Sodium 138 (135-145) mmol/L Potassium 3.7 (3.5-5.0) mmol/L Chloride 100 L (101-111) mmol/L Carbon Dioxide 28 (21-32) mmol/L Anion Gap 10.0 (6-13) BUN 41 H (6-20) mg/dL Creatinine 2.5 H (0.4-1.0) mg/dL Estimated GFR (MDRD) 20 L (>89) Glucose 101 H (70-100) mg/dL Calcium 8.9 (8.5-10.3) mg/dL Assessment/Plan - Problem List (1) Acute kidney injury Impression: She was clinically dehydrated and has prerenal azotemia and possibly ATN from hypotension. We started her on iv fluids since ER and continued. Her creatinine first increased from 6.1 to 6.8, then improved to 5.8>> 4.1>> 3.5>>2.9>>2.7>>2.5 today She did have protein and granular casts seen on her U/A suggesting she may have CKD. I did a renal artery ultrasound 11/16 and there is no renal artery stenosis. Plan: Continue IV fluid replacement, we decreased iv rate due to elevated BNP (see #3). My goal is to get her below 2.0 and then she can go home Avoid nephrotoxins Follow BMP daily Referral in the outpatient setting to nephrology to see if they could cast some light on management of her blood pressure and disease (2) Fever Impression: She spiked a fever of 38 degrees C at midnight of 11/14. It does not appear that any blood cultures were drawn or anything new ordered by the [facility] night doctor. 11/16 she coughed up a piece of phlegm that is brownish-yellow and wanted me to look at it. Her diarrhea had been tested for C. diff and that was neg Her WBC count had risen again: 22 at admission>> 16>> 15>> 14.8>> 15.3>>15.3>>13.1 and lower today. And cause was not clear. Her CT abd did not show colitis. Blood cultures are negative at 24 hours. Urinalysis was negative. . We were worried about giving her too much IV fluids and an echo was checked and it was within normal ejection fraction. PCR panel negative for virus. Chest x-ray>> It was read as having "worsening pulmonary status, diffuse bilateral interstitial infiltrates, consider viral pneumonitis versus interstitial pulmonary edema". Zithromax and linezolid were started empirically for this fever. No cough today. WBC is down. Zyvox is Day #4 today, Zithromax is also day #4. Plan: Empiric antibiotics for an atypical pneumonia, using Zithromax and zyvox added since she is inpatient to cover for MRSA Stop tomorrow and see how she does. 3) Cough On Sat 11/12, she has a very wet and productive cough. This was after 2 days of aggressive IV fluids given. A chest x-ray was done that was read as having fluid overload. BNP came back at 450. Troponins were cycled and were neg for ID (12>> 11).Echocardiogram does not show congestive heart failure. Plan: Continue the decreased IV rate from 200 down to 100 down to 70 cc/h 11/14 A sputum for a respiratory culture was ordered but she cannot bring any up. Which she brought up and showed me on a napkin is a very small dollop of yellowish-green phlegm 11/16. Her DARLYN was held due to this cough but she wants it given to her again. (4) Hypertension Conclusion/Plan: After rehydration started and positive fluid balance, her BP is no longer 90 systolic, but is now hypertensive. There is a Hx of labile BP. Plan: We resumed her usual doses of Labetalol We had not resumed her Zestril because of her ongoing renal failure and we learned that she suffered from a cough when she took Lisinopril. DARLYN-I was held and it was put in the chart as allergic to it. Plan had been to add Hydralazine, however her allergy list says that she had altered mental status after getting Hydralazine. Clonidine restarted twice daily November 14. I increased it to 3 times a day on November 15. She also needed Prazosin po twice when BP very elevated around 1500 daily, thus the previous hospitalist added prazosin and gave it at noon. Renal artery ultrasound negative. She is allergic to Norvasc. I gave once dose of procardia 11/16. Today she really wants her Darlyn so I will give to her. (5) Diarrhea Conclusion/Plan: Improved. No diarrhea or BMs at all since 11/12. This presentation is similar to the record from April 2022 here. N/V/D are on and off. She had several moderately large yellow liquid BMs. The patient disclosed that she has had multiple episodes of N/V/D in her life and was never given a gastrointestinal diagnoses such as irritable bowel syndrome, Crohn's or ulcerative colitis and none of these problems run in family members. She says she underwent a colonoscopy when still in [place], does not remember how many years ago and precancerous polyps were removed then and she has had no GI follow-up after that. The pt allowed me to reach out to a prior doctor for more Hx (the surgeon who took care of her in [place], and happens to be her [id number], who happens to work at this hospital and is Dr. Marck Richter). He confirmed that there was no established Dx of why she gets such frequent nausea and vomiting. I told the pt and gilmer Lopez, at bedside today, about my discussion with Dr Marck Richter. I started a regular diet at dinner on November 15. She is a little bit bloated today. But otherwise benign abdomen. Plan: This patient should get an outpatient colonoscopy. (6) N/V Conclusion/Plan: Nausea is only minimal. Emesis this am after having 2 good days She is still requiring antiemetics IV prn She is now on a regular diet. The pt allowed me to reach out to a prior doctor for more Hx. He confirmed that there was no knowledge of why she gets such frequent nausea and vomiting. Plan: Continue prn iv antiemetics. Consider sending her for gastric emptying study in the outpatient setting. (7) Hypomagnesemia Conclusion/Plan: Likely from losses in vomiting and diarrhea. She was low the day before yesterday. Plan: Replace witjh iv Mag rider Follow Mg daily. (8) Antiphospholipid antibody syndrome Conclusion/Plan: As per Hx. Plan: We will continue an anticoagulant while here (Xarelto is not on formulary, we substituted with Eliquis). (9) Proteinuria Conclusion/Plan: This pt did have protein and granular casts seen on her first U/A suggesting she may have CKD. Plan: She will likely need Nephrology outpatient management going forward, given the sever creat elevations w/ dehydration. 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
[2022-11-17] MEDS: ATORVASTATIN 40 MG TABLET PO SCH (21:52)
[2022-11-18] MEDS: SODIUM CHLORIDE FLUSH 0.9% 10 ML SYRINGE IVP SCH ×2 (00:45→08:54)
[2022-11-18] MEDS: LINEZOLID 600 MG/300 ML 600 MG/300 ML BAG IV SCH (04:51)
[2022-11-18] MEDS: DEXTROSE 5%-0.9% NACL 1,000 ML IV SCH (04:56)
[2022-11-18 05:19] LABS: CALCIUM 8.8 mg/dL (8.5-10.3); CREATININE 2.4 mg/dL (0.4-1.0); POTASSIUM 3.4 mmol/L (3.5-5.0)
[2022-11-18] MEDS: LABETALOL 100 MG TABLET PO SCH (05:37)
[2022-11-18] MEDS: cloNIDine 0.1 MG TABLET PO SCH (05:37)
[2022-11-18] MEDS: GABAPENTIN 400 MG CAPSULE PO SCH (05:38)
[2022-11-18] MEDS: LABETALOL 300 MG TABLET PO SCH (06:30)
[2022-11-18] MEDS ORDERED: POTASSIUM CHLORIDE 20 MEQ TABLET PO ONE (07:27)
--- NOTE | 2022-11-18 08:19 | Discharge Plan ---
Discharge Plan Problem Reviewed?: Yes Disposition: Home, Self Care Condition: Fair Diet: Low Sodium Activity Restrictions: Activity as Tolerated Shower Restrictions: No Driving Restrictions: No Health Concerns: You were seen in your doctor's office because of nausea, vomiting, and diarrhea for 4 days. With that your blood pressure was getting low. That really made you worried because you have already been admitted in April 2022 with the same symptoms that resulted in some kidney failure. So your doctor sent you to the emergency room where your blood pressure was 90. We also found you to have a creatinine of 6.1 and a dark urine that was very concentrated. And protein in your urine. We did a CT scan of your abdomen to make sure there were no blockages in your kidneys or tumors. Nothing was seen. You do have some stones in the left kidney but they were not blocking anything. You have a long history of nausea and vomiting. You said you have had it since childhood. That you are a "sickly kid" and you were always staying home from school because of it. You do not have a diagnosis for why this happens. From our perspective we treated you as renal failure from dehydration and your kidneys is slowly gotten better. Normal for you is 1.0 and even as low as 0.8. Your kidney started getting worse in May 2021 and it was 1.4. And by April 2022 you were 3.7 without admission. With this admission you are as high as 6.6. Today you were 2.4. We have been slowly waiting for you to get back below 2 but we think is can take a lot longer and you would like to go home. The other problem you develop while you were here was a fever and a cough. Your chest x-ray does not show pneumonia but we treated you with antibiotics and you have done well. Today would have been your last day. You do not need to take any more antibiotics. When we gave you lots of fluids for your kidneys, you did retain water. We wanted to make sure your heart pump was okay so we did an echocardiogram and the heart pump ejection fraction is 60 to 65% which is normal. Plan of Treatment: 1. Make sure you drink a liter of water a day. You do not need to drink more than that. In fact we would ask you not to drink more than 1500 cc a day of fluids. 2. Please see your primary care provider in follow-up in the next week or 2. We like him to start making referrals for you. Would like to have you see a ethologist to find out why you did kidney failure in April, and why the kidney failure now. While dehydration is certainly a cause, your kidneys seem to have other problems going on and you should be evaluated. 3. Your blood pressure was initially low when you got here. Then it got very high and we needed to adjust her medicines. One of your blood pressure pills, lisinopril, can cause kidney failure in and of itself. So we were hesitant to give it to you. But you are more comfortable with lisinopril that you are with other medications. We have given it back to you to go home on but your doctor really needs to watch her kidney function on it. The other problem with lisinopril as it can give you a mild low cough. You said you have had a cough for very long time. You will report that your doctor to make sure that he notes that to make sure that lisinopril is not causing the problem as well. Care Goals: Right now the care goals will focus around your kidneys. Making sure that there is no further damage, that they slowly recover, and that you get to see a ethologist. No Smoking: If you smoke, Please STOP! Call for help. Follow-up with: Louis Hinds MD [Primary Care Provider] -
[2022-11-18] MEDS ORDERED: MAGNESIUM SULFATE 2 GRAM 2 GM/50 ML BAG IV ONE (08:29)
--- NOTE | 2022-11-18 08:29 | DISCHARGE SUMMARY ---
Discharge Summary Admit Date: 11/10/22 Discharge Date: 11/18/22 Discharging Provider: Janeth Segundo MD Primary Care Provider: Louis Hinds MD Code Status: Attempt Resuscitation Condition at Discharge: Fair Discharge Disposition: 01 Home, Self Care - DIAGNOSES Discharge Diagnoses with Status of Each Condition: 1. Acute kidney injury 2. Dehydration 3. Gastroenteritis 4. Antiphospholipid antibody syndrome 5. 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 Hypertension 7. Chronic cough 8. Fever and leukocytosis 9. Hypomagnesemia 10. Proteinuria - HPI History of Present Illness: This is a 52-year-old female with a history of antiphospholipid syndrome on Xarelto, prior CVA with mild residual speech difficulty, hypertension which is often labile, and possibl has CKD with baseline creatinine 1.4. In April 2022 alyssa kim presented with dehydration, elevated creatinine and nausea and vomiting for several days, was treated for gastroenteritis symptomatically and IV fluids and creat improved. The patient presents now after being sent in by her PCP because of low blood pressure. She has had 4 days of nausea, vomiting and diarrhea, she reported that in the those 4 days she had only drank about 5 cups of liquids (8 ounces each). She admits to having no urine output for the past 2 days. There was mild right lower quadrant pain. She saw no blood in her diarrhea. She denies fever or any respiratory symptoms. Her blood pressure was found to be approximately 90 systolic and PCP advised she come to the ER. In the ER her blood pressure is running also in the 90s. Labs have come back showing she has a creatinine of 6.1 and dark urine with a urinalysis showing a high specific gravity and protein present. She underwent a CT abdomen/pelvis without contrast. This was unremarkable: Normal appendix, no free fluid or free air, no bowel obstruction, no abscess, there is a nodule in the left adrenal gland likely a adenoma and she has nonobstructing left renal calculi but no hydronephrosis or hydroureter or pyelonephritis. The patient received IV Zofran in the ED and has been started on IV fluids, she is on her third liter currently. The ER provider has reached out to the Hospitalist team to have this patient admitted for treating another presumed episode of gastroenteritis cau sing dehydration and GABE. She moved here from [place] 4 years ago, and reports that she has gotten many episodes of N/V/D, so that she had a port placed, for iv access. She has never been diagnosed with why she gets NV/D so often, but cannot remember if she ever saw a [employer] Technician there. There is no FH of any GI diagnoses or of others with Antiphospholipid syndrome. She is on disability due to her stroke, but she remains active around the house. She lives with her boyfriend. She has been been twice in her past; the first and she is from the second . History - Past Medical History Cardiovascular: reports: Hypertension Respiratory: reports: None Neuro: reports: CVA GI: reports: Other (Hx of recurrent N/V/D, that she calls Gastroenteritis.) : reports: None HEENT: reports: Glaucoma Psych: reports: Depression Musculoskeletal: reports: Other Derm: reports: None MRSA Hx?: No - Past Surgical History General: reports: Cholecystectomy Ortho: reports: Other - CONSULTS | PROCEDURES Procedures: Abdomen pelvis CT with clear lung bases. Gallbladder surgically absent. Pancreas normal contour and she has a benign-appearing adenoma of the left adrenal gland. No hydronephrosis. And nonobstructing left renal stone. The bowel loops were normal. No free air. No adenopathy in the abdomen. No obstruction in the bladder. chest x-ray done and she has prominent interstitial changes but no dense consolidation or pleural effusion. When she had a fever and white cell count, a repeat chest x-ray showed worsening pulmonary status. Diffuse bilateral inter stitial infiltrates. Consider viral pneumonia versus interstitial pulmonary edema. We did lower her IV fluids rate with hydration with this and gave her antibiotics. Renal arterial ultrasound done and there is no evidence of renal artery stenosis greater than 60%. Echocardiogram done and showed mild concentric left ventricular hypertrophy. Left ventricular systolic function normal with an ejection fraction of 60 to 65%. Right ventricular systolic function and size normal. Mild aortic regu rgitation. Blood cultures negative after 48 hours - HOSPITAL COURSE Hospital Course: This is a second admission for this patient has had nausea vomiting. This time with diarrhea. Analysis of stool was negative for infection. She was treated with IV fluids. Creatinine was quite high. She went from being hypotensive to hypertensive. We try to control her blood pressure without using lisinopril because of the kidney insufficiency. However as her kidneys got better, blood pressure got higher. Patient preferred to go back on lisinopril. She is sally rgic to amlodipine. She also has a cough. She says that she was coughing before the lisinopril so does not believe that is the reason. Nevertheless, I told her that she really needs to have her kidney function monitored closely while on lisinopril. She developed a fever and elevated white cell count. Chest x-ray was negative for pneumonia. UA was negative for infection. Abdomen was benign. We treated empirically as a possible low-grade pneumonitis in the hospital with linezolid and Zithromax. She had no further recurrence of fever. Cultures were negative. White cell count peaked at 16,000 and was 13.1 the day of discharge. Were concerned about her kidney function. When she first came to live on the [place] creatinine was 0.8. With a hospitalization in April for "gastroenteritis" creatinine was just below 4. With this admission creatinine peaked at 6.6. It did respond to IV fluids. Over the last 4 days of admission, she hovered just above 2. Did not get much lower. She is eating, ambulating, feels fine. Not coughing. Would like to go home. As such I have asked her to make sure she drinks between 9316-5814 cc of fluid a day. Make sure she sees her doctor in the next week or 2 and she needs a BMP to check her kidney function. I would like her to get a referral to nephrology to make sure were not missing a new chronic kidney disease in a patient who has antiphospholipid syndrome. I would also like to see if she needs to be evaluated for her chronic nausea vomiting and diarrhea. She has had a colonoscopy but that was a few years ago. She does not remember having a gastric emptying study. At discharge she is alert, oriented female. Occasionally she stutters with her speech because of dysarthria from a previous stroke. Temperature is 36.4. Heart rate 68. Blood pressure 171/88. Respirations 16. 99% on room air. Neck is supple. Lungs are clear. She has a regular rate and rhythm. Abdomen is soft and nontender. Extremities are without edema. Greater than 30 minutes was spent in coordinating discharge, discussing her case with her at length to make sure she does the follow-up. I did suggest she stop smoking marijuana just in case she has hyperemesis from cannabis. She said in [place] she stopped smoking for 8 months and it made no difference. - ALLERGIES Allergies/Adverse Reactions: Allergies Allergy/AdvReac Type Severity Reaction Status Date / Time amitriptyline Allergy Anaphylaxis Verified 05/05/22 16:05 amlodipine Allergy Rash Verified 05/05/22 16:05 clindamycin Allergy Nausea Verified 05/05/22 16:05 diphenhydramine Allergy Anaphylaxis Verified 05/05/22 16:05 [From Benadryl] hydralazine Allergy Hallucinati Verified 05/05/22 16:05 ons hydrochlorothiazide Allergy Anaphylaxis Verified 05/05/22 16:05 Penicillins Allergy Anaphylaxis Verified 05/05/22 16:05 lisinopril AdvReac Mild Unknown Verified 11/12/22 09:52 - MEDICATIONS Home Medications: Ambulatory Orders Medication Instructions Recorded Confirmed Cyclobenzaprine HCl 5 mg PO TID 04/24/19 11/11/22 Fluoxetine HCl [Prozac] 40 mg PO DAILY 04/24/19 11/11/22 Gabapentin [Neurontin] 800 mg PO TID 04/24/19 11/11/22 Rivaroxaban [Xarelto] 20 mg PO QDDINNER 05/05/22 11/11/22 Atorvastatin Calcium 40 mg PO HS 11/11/22 11/11/22 Labetalol [Trandate] 700 mg PO TID 11/11/22 11/11/22 Lisinopril [Zestril] 15 mg PO HS 11/11/22 11/11/22 - LABS Result Diagrams: 11/17/22 05:25 11/18/22 04:45
[2022-11-18] MEDS: FLUoxetine 10 MG CAPSULE PO SCH (08:51)
[2022-11-18] MEDS: lisinopriL 5 MG TABLET PO SCH (08:52)
[2022-11-18] MEDS: AZITHROMYCIN 250 MG TABLET PO SCH (08:52)
[2022-11-18] MEDS: SACCHAROMYCES BOULARDII 250 MG CAPSULE PO SCH (08:52)
[2022-11-18] MEDS: APIXABAN 5 MG TABLET PO SCH (08:53)
[2022-11-18] MEDS: NIFEdipine ER 30 MG TABLET PO SCH (08:53)
[2022-11-18 10:28] VITALS: BP 82/54
== END 2022-11-18 10:40 | disposition home or self-care (01) | DRG 682 ==
LOC: ED 10:46 → MS2 18:21
PROVIDERS: ADMIT Internal Medicine; ATTEND Specialist
DX: N17.9 Acute kidney failure, unspecified (principal); J18.9 Pneumonia, unspecified organism; D68.61 Antiphospholipid syndrome; E86.0 Dehydration; K52.9 Noninfective gastroenteritis and colitis, unspecified; I69.322 Dysarthria following cerebral infarction; R05.3 Chronic cough; R50.9 Fever, unspecified; D72.829 Elevated white blood cell count, unspecified; E83.42 Hypomagnesemia; R80.9 Proteinuria, unspecified; I12.9 Hypertensive chronic kidney disease with stage 1 through stage 4 chronic kidney disease, or unspecified chronic kidney disease; N18.9 Chronic kidney disease, unspecified; F32.A Depression, unspecified; H40.9 Unspecified glaucoma; Z79.01 Long term (current) use of anticoagulants; Z79.899 Other long term (current) drug therapy; Z82.0 Family history of epilepsy and other diseases of the nervous system; Z82.3 Family history of stroke; Z82.49 Family history of ischemic heart disease and other diseases of the circulatory system; Z87.891 Personal history of nicotine dependence; Z88.0 Allergy status to penicillin; Z88.8 Allergy status to other drugs, medicaments and biological substances; Z20.822 Contact with and (suspected) exposure to COVID-19
CPT/HCPCS: 36415; 71045; 74176; 80048; 80053; 81001; 83690; 83735; 83880; 84484; 85025; 87040; 87493; 87633; 93306; 93975; 96361; 96374; 96376; 99285; A9270; J2020; 81003; 87086

== ENCOUNTER 2022-11-29 09:57 | Outpatient (CLI) | payer MEDICAID ==
[2022-11-29 12:46] LABS: BASOPHILS # (AUTO) 0.1 10^3/uL (0.0-0.1); BASOPHILS % (AUTO) 0.7 %; EOSINOPHILS # (AUTO) 0.3 10^3/uL (0.0-0.7); EOSINOPHILS % (AUTO) 1.9 %; HCT - HEMATOCRIT 34.9 % (37.0-47.0); HGB - HEMOGLOBIN 11.4 g/dL (12.0-16.0); LYMPHOCYTES # (AUTO) 2.9 10^3/uL (1.5-3.5); LYMPHOCYTES % (AUTO) 19.2 %; MEAN CORPUSCULAR HEMOGLOBIN 29.1 pg (27.0-31.0); MEAN CORPUSCULAR HGB CONC 32.7 g/dL (32.0-36.0); MEAN PLATELET VOLUME 10.5 fL (7.9-10.8); MONOCYTES # (AUTO) 1.2 10^3/uL (0.0-1.0); MONOCYTES % (AUTO) 7.7 %; NEUTROPHILS # (AUTO) 10.5 10^3/uL (1.5-6.6); NEUTROPHILS % (AUTO) 70.2 %; PLT - PLATELET COUNT 417 10^3/uL (130-450); RED BLOOD COUNT 3.92 10^6/uL (4.20-5.40); RED CELL DISTRIBUTION WIDTH 13.3 % (12.0-15.0)
[2022-11-29 13:12] LABS: ALBUMIN/GLOBULIN RATIO 1.2 (1.0-2.2); BILIRUBIN,TOTAL 0.7 mg/dL (0.2-1.0); CALCIUM 9.4 mg/dL (8.5-10.3); CREATININE 1.3 mg/dL (0.4-1.0); POTASSIUM 4.8 mmol/L (3.5-5.0); TOTAL PROTEIN 7.3 g/dL (6.7-8.2)
[2022-11-29 13:32] LABS: ESTIMATED AVERAGE GLUCOSE 134 mg/dL (70-100); HEMOGLOBIN A1c% 6.3 % (4.27-6.07)
== END 2022-11-29 09:58 | disposition home or self-care (01) ==
LOC: LAB.N 09:57
PROVIDERS: ATTEND Family Medicine
DX: I10 Essential (primary) hypertension (principal); E78.1 Pure hyperglyceridemia; R73.9 Hyperglycemia, unspecified; Z79.01 Long term (current) use of anticoagulants; E78.00 Pure hypercholesterolemia, unspecified; G40.909 Epilepsy, unspecified, not intractable, without status epilepticus; I95.9 Hypotension, unspecified; R73.03 Prediabetes; N17.0 Acute kidney failure with tubular necrosis
CPT/HCPCS: 36415; 80053; 83036; 85025

== ENCOUNTER 2023-01-12 11:18 | Outpatient (CLI) | payer MEDICAID ==
[2023-01-12 18:04] LABS: CREATININE,URINE 178.9 mg/dL; MICROALBUM/CREATININE RATIO,UR 36.9 ug/mg (<30.0); MICROALBUMIN,URINE 6.6 mg/dL (0-300.0)
[2023-01-12 18:07] LABS: BASOPHILS # (AUTO) 0.1 10^3/uL (0.0-0.1); EOSINOPHILS # (AUTO) 0.3 10^3/uL (0.0-0.7); EOSINOPHILS % (AUTO) 2.3 %; HCT - HEMATOCRIT 40.4 % (37.0-47.0); HGB - HEMOGLOBIN 13.2 g/dL (12.0-16.0); LYMPHOCYTES # (AUTO) 3.9 10^3/uL (1.5-3.5); MEAN CORPUSCULAR HEMOGLOBIN 29.2 pg (27.0-31.0); MEAN CORPUSCULAR HGB CONC 32.7 g/dL (32.0-36.0); MEAN CORPUSCULAR VOLUME 89.4 fL (81.0-99.0); MEAN PLATELET VOLUME 10.5 fL (7.9-10.8); NEUTROPHILS # (AUTO) 8.1 10^3/uL (1.5-6.6); NEUTROPHILS % (AUTO) 60.3 %; PLT - PLATELET COUNT 366 10^3/uL (130-450); RED BLOOD COUNT 4.52 10^6/uL (4.20-5.40); RED CELL DISTRIBUTION WIDTH 14.4 % (12.0-15.0); WHITE BLOOD COUNT 13.5 x10^3/uL (4.8-10.8)
[2023-01-12 18:12] LABS: ALBUMIN 4.3 g/dL (3.2-5.5); ALBUMIN/GLOBULIN RATIO 1.4 (1.0-2.2); ALKALINE PHOSPHATASE 125 IU/L (42-121); ALT ALANINE AMINOTRANSFERASE 32 IU/L (10-60); AST ASPARTATE AMINOTRANSFERASE 29 IU/L (10-42); BILIRUBIN,TOTAL 0.7 mg/dL (0.2-1.0); BUN - BLOOD UREA NITROGEN 29 mg/dL (6-20); CALCIUM 9.1 mg/dL (8.5-10.3); CARBON DIOXIDE - CO2 25 mmol/L (21-32); CHLORIDE 99 mmol/L (101-111); CHOLESTEROL 151 mg/dL; CREATININE 1.1 mg/dL (0.4-1.0); GFR - MDRD 52 (>89); GLUCOSE 92 mg/dL (70-100); HDL CHOLESTEROL 30 mg/dL; LDL CHOLESTEROL,CALCULATED 73 mg/dL; LDL/HDL RATIO 2.4 (<4.4); POTASSIUM 4.5 mmol/L (3.5-5.0); SODIUM 134 mmol/L (135-145); TOTAL PROTEIN 7.3 g/dL (6.7-8.2); TRIGLYCERIDES 238 mg/dL; VLDL CHOLESTEROL 48 mg/dL
[2023-01-12 18:22] LABS: THYROID STIMULATING HORMONE 5.1 uIU/mL (0.34-5.60)
[2023-01-12 18:24] LABS: FREE T3 2.7 pg/mL (2.5-3.9); FREE T4 (FREE THYROXINE) 0.63 ng/dL (0.58-1.64)
[2023-01-12 21:00] LABS: ESTIMATED AVERAGE GLUCOSE 126 mg/dL (70-100)
== END 2023-01-12 11:19 | disposition home or self-care (01) ==
LOC: LAB.N 11:18
PROVIDERS: ATTEND Family Medicine
DX: I10 Essential (primary) hypertension (principal); I95.9 Hypotension, unspecified; R11.10 Vomiting, unspecified; E78.1 Pure hyperglyceridemia; R73.03 Prediabetes; N17.0 Acute kidney failure with tubular necrosis; G40.909 Epilepsy, unspecified, not intractable, without status epilepticus; I69.951 Hemiplegia and hemiparesis following unspecified cerebrovascular disease affecting right dominant side; E78.00 Pure hypercholesterolemia, unspecified; D68.61 Antiphospholipid syndrome
CPT/HCPCS: 36415; 80053; 80061; 82043; 82570; 83036; 83721; 84439; 84443; 84481; 85025

== ENCOUNTER 2023-04-18 13:44 | Outpatient (CLI) | payer MEDICAID ==
[2023-04-18 17:48] LABS: BASOPHILS # (AUTO) 0.1 10^3/uL (0.0-0.1); BASOPHILS % (AUTO) 0.8 %; EOSINOPHILS # (AUTO) 0.2 10^3/uL (0.0-0.7); EOSINOPHILS % (AUTO) 1.8 %; HCT - HEMATOCRIT 40.7 % (37.0-47.0); HGB - HEMOGLOBIN 13.3 g/dL (12.0-16.0); LYMPHOCYTES # (AUTO) 3.8 10^3/uL (1.5-3.5); LYMPHOCYTES % (AUTO) 29.3 %; MEAN CORPUSCULAR HGB CONC 32.7 g/dL (32.0-36.0); MEAN CORPUSCULAR VOLUME 88.7 fL (81.0-99.0); MEAN PLATELET VOLUME 10.8 fL (7.9-10.8); MONOCYTES % (AUTO) 7.6 %; NEUTROPHILS # (AUTO) 7.7 10^3/uL (1.5-6.6); NEUTROPHILS % (AUTO) 60.2 %; PLT - PLATELET COUNT 325 10^3/uL (130-450); RED BLOOD COUNT 4.59 10^6/uL (4.20-5.40); RED CELL DISTRIBUTION WIDTH 13.6 % (12.0-15.0); WHITE BLOOD COUNT 12.8 x10^3/uL (4.8-10.8)
[2023-04-18 17:55] LABS: ALBUMIN/GLOBULIN RATIO 1.5 (1.0-2.2); BILIRUBIN,TOTAL 0.6 mg/dL (0.2-1.0); CREATININE 1.4 mg/dL (0.4-1.0); POTASSIUM 4.3 mmol/L (3.5-5.0); TOTAL PROTEIN 6.7 g/dL (6.7-8.2)
[2023-04-18 17:58] LABS: INR 1.1 (0.8-1.2)
[2023-04-18 18:22] LABS: CREATININE,URINE 242.3 mg/dL; MICROALBUMIN,URINE 6.3 mg/dL (0-300.0)
[2023-04-18 20:57] LABS: ESTIMATED AVERAGE GLUCOSE 126 mg/dL (70-100)
== END 2023-04-18 13:45 | disposition home or self-care (01) ==
LOC: LAB.N 13:44
PROVIDERS: ATTEND Family Medicine
DX: I10 Essential (primary) hypertension (principal); R73.9 Hyperglycemia, unspecified; I69.951 Hemiplegia and hemiparesis following unspecified cerebrovascular disease affecting right dominant side; D68.61 Antiphospholipid syndrome; N17.0 Acute kidney failure with tubular necrosis; G40.909 Epilepsy, unspecified, not intractable, without status epilepticus; Z79.01 Long term (current) use of anticoagulants
CPT/HCPCS: 36415; 80053; 82043; 82570; 83036; 85025; 85610

== ENCOUNTER 2023-05-31 14:57 | Outpatient (CLI) | payer MEDICAID ==
--- NOTE | 2023-06-01 12:09 | Mammography Report ---
BILATERAL DIGITAL SCREENING MAMMOGRAM 3D/2D: 05/31/2023 CLINICAL: Routine screening. Comparison is made to exams dated: 10/29/2021 mammogram, 09/11/2020 ultrasound, 09/11/2020 mammogram - [facility], 06/12/2017 mammogram - [facility], and 09/13/2011 mammogram - [facility]. Both breasts are heterogeneously dense, which may obscure small masses (category c / 51-75% glandular tissue). There is a new 0.7 cm oval equal density focal asymmetry in the right breast at 5 o'clock middle dept h. There is architectural distortion associated with the focal asymmetry. No other significant masses, calcifications, or other findings are seen in either breast. IMPRESSION: INCOMPLETE: NEEDS ADDITIONAL IMAGING EVALUATION The new 0.7 cm oval equal density focal asymmetry in the right breast is indeterminate. Additional v iews with possible ultrasound are recommended. Based on the Tyrer Cuzick model (a risk assessment model) the patients lifetime risk is 17.4% and he r 10 year risk is 5.5%. According to the ACR, ACS, and NCCN guidelines, an annual breast MRI exam jossie ng with mammogram is recommended if the patients lifetime risk is 20% or greater. This exam was interpreted at Station ID: [id number]. NOTE: For mammograms, a report in lay terms will be sent to the patient. Approximately 15% of breast malignancies will not be visualized mammographically. In the management of a palpable breast mass, a negative mammogram must not discourage biopsy of a clinically suspicious lesion. Electronically Signed By: Parveen anders/celina:06/01/2023 07:12:19 ACR BI-RADS Category 0: Incomplete 3340F PARENCHYMAL PATTERN: (D) - The breast(s) demonstrate(s) heterogeneously dense fibroglandular parenchy ma. BI-RADS CATEGORY: (0) - 0 Mammo and [place] [id number] Immediate follow-up LATERALITY: (R)
== END 2023-05-31 14:58 | disposition home or self-care (01) ==
LOC: DI.N 14:57
DX: Z12.31 Encounter for screening mammogram for malignant neoplasm of breast (principal); R92.8 Other abnormal and inconclusive findings on diagnostic imaging of breast

== ENCOUNTER 2023-06-20 10:38 | Outpatient (CLI) | payer MEDICAID ==
--- NOTE | 2023-06-21 11:04 | Mammography Report ---
UNILATERAL RIGHT DIGITAL DIAGNOSTIC MAMMOGRAM 3D/2D WITH SPOT COMPRESSION: 06/20/2023 CLINICAL: Patient returns today to evaluate a focal asymmetry in the right breast. Comparison is made to exams dated: 05/31/2023 mammogram, 10/29/2021 mammogram, 09/11/2020 mammogram - [facility], and 06/12/2017 mammogram - [facility]. The right breast is heterogeneously dense, which may obscure small masses (category c / 51-75% glandu lar tissue). There is a new 0.7 cm oval equal density focal asymmetry in the right breast at 5 o'clock middle dept h. There is architectural distortion associated with the focal asymmetry. No other significant masses or calcifications are seen in the breast. IMPRESSION: INCOMPLETE: NEEDS ADDITIONAL IMAGING EVALUATION The new 0.7 cm oval equal density focal asymmetry in the right breast is indeterminate. A targeted ultrasound is recommended and will immediately follow. Based on the Tyrer Cuzick model (a risk assessment model) the patients lifetime risk is 17.4% and he r 10 year risk is 5.5%. According to the ACR, ACS, and NCCN guidelines, an annual breast MRI exam jossie ng with mammogram is recommended if the patients lifetime risk is 20% or greater. This exam was interpreted at Station ID: [id number]. NOTE: For mammograms, a report in lay terms will be sent to the patient. Approximately 15% of breast malignancies will not be visualized mammographically. In the management of a palpable breast mass, a negative mammogram must not discourage biopsy of a clinically suspicious lesion. Electronically Signed By: Wale Escudero M.D. slc/:06/20/2023 11:09:03 ACR BI-RADS Category 0: Incomplete 3340F PARENCHYMAL PATTERN: (D) - The breast(s) demonstrate(s) heterogeneously dense fibroglandular parenchy ma. BI-RADS CATEGORY: (0) - 0 Ultrasound [id number] Immediate follow-up LATERALITY: (B)
--- NOTE | 2023-06-21 11:04 | Ultrasound Report ---
LIMITED ULTRASOUND OF RIGHT BREAST AND AXILLA: 06/20/2023 CLINICAL: Patient returns today to evaluate a focal asymmetry in the right breast. Comparison is made to exams dated: 05/31/2023 mammogram, 10/29/2021 mammogram, and 06/20/2023 mammogram - [facility]. Color flow ultrasound of the right breast 5-6 o'clock, and axilla regions was performed. Hooker scale images of the real-time examination were reviewed. There is a 0.8 cm x 0.6 cm x 0.6 cm taller than wide irregular mass with an indistinct margin in the right breast at 5 o'clock middle depth 8 cm from the nipple. This irregular mass is hypoechoic. Thi s correlates with mammography findings. Color flow imaging demonstrates that there is no vascularity present. No significant abnormalities were seen sonographically in the right axilla. IMPRESSION: SUSPICIOUS OF MALIGNANCY The 0.8 cm x 0.6 cm x 0.6 cm irregular mass in the right breast is at a high suspicion for malignancy . An ultrasound guided biopsy is recommended. No enlarged right axillary lymph nodes. Exam findings were discussed with the patient by Dr. Cordova. This exam was interpreted at Station ID: [id number]. Electronically Signed By: Wale Escudero M.D. slc/:06/20/2023 11:41:02 Ultrasound BI-RADS: 4c High suspicion of malignancy BI-RADS CATEGORY: (4c) - High Susp Biopsy [id number] Immediate follow-up LATERALITY: (R)
== END 2023-06-20 10:39 | disposition home or self-care (01) ==
LOC: DI 10:38
PROVIDERS: ATTEND Family Medicine
DX: N63.15 Unspecified lump in the right breast, overlapping quadrants (principal)

== ENCOUNTER 2023-06-29 09:40 | Outpatient (CLI) | payer MEDICAID ==
[2023-06-29] MEDS ORDERED: LIDOCAINE 1%-EPI 1:100000 20 ML MDV ONE (10:14)
[2023-06-29] MEDS ORDERED: LIDOCAINE-MPF 1% 5 ML VIAL ONE (10:14)
[2023-06-29] MEDS ORDERED: LIDOCAINE-MPF 1% 5 ML VIAL TD ONE (11:30)
[2023-06-29] MEDS ORDERED: LIDOCAINE 1%-EPI 1:100000 20 ML MDV SUBQ ONE (11:32)
--- NOTE | 2023-06-30 10:16 | Mammography Report ---
UNILATERAL RIGHT DIGITAL DIAGNOSTIC MAMMOGRAM POST-PROCEDURE IMAGING FOR MARKER PLACEMENT: 06/29/2023 CLINICAL: Post right breast ultrasound biopsy clip placement imaging. Comparison is made to exams dated: 06/20/2023 mammogram, 05/31/2023 mammogram, 10/29/2021 mammogram, and 06/20/2023 ultrasound - [facility]. The right breast is heterogeneously dense, which may obscure small masses (category c / 51-75% glandu lar tissue). Marker clip placement was attempted for the biopsied mass in the right breast at 5 o'clock middle dep th. No biopsy marker clip is seen. It was unclear if the biopsy marker successfully deployed during the exam. The device was checked after attempted placement and no marker was seen on or within the de vice. IMPRESSION: POST PROCEDURE MAMMOGRAM FOR MARKER PLACEMENT Unsuccessful marker clip placement in the right breast middle depth at the site of the biopsied mass. Based on the Tyrer Cuzick model (a risk assessment model) the patients lifetime risk is 17.4% and he r 10 year risk is 5.5%. According to the ACR, ACS, and NCCN guidelines, an annual breast MRI exam jossie ng with mammogram is recommended if the patients lifetime risk is 20% or greater. This exam was interpreted at Station ID: [id number]. NOTE: For mammograms, a report in lay terms will be sent to the patient. Approximately 15% of breast malignancies will not be visualized mammographically. In the management of a palpable breast mass, a negative mammogram must not discourage biopsy of a clinically suspicious lesion. Electronically Signed By: Daniel Morgan M.D. ar/:06/29/2023 11:31:51 ACR BI-RADS Category Post-procedure mammogram for marker placement PARENCHYMAL PATTERN: (D) - The breast(s) demonstrate(s) heterogeneously dense fibroglandular parenchy ma. BI-RADS CATEGORY: () - Unspecified - other recall n/a LATERALITY: (B)
--- NOTE | 2023-07-03 15:48 | Ultrasound Report ---
ULTRASOUND GUIDED BIOPSY RIGHT BREAST USING VACUUM DEVICE WITH MARKING DEVICE INSERTED AND POST DIGIT AL MAMMOGRAPHIC IMAGIN06/29/2023 CLINICAL: Right breast mass. PATIENT CONSENT: Risks (minor bleeding, infection, vasovagal reaction and repeat procedure), benefits and alternatives were explained to the patient and written informed consent was obtained. Correlation is made to exams dated: 06/20/2023 ultrasound, 06/20/2023 mammogram, 05/31/2023 mammogram, a nd 10/29/2021 mammogram - [facility]. An ultrasound guided biopsy using real-time ultrasound was performed for the 0.8 cm x 0.6 cm x 0.6 cm mass located in the right breast at 5 o'clock middle depth 8 cm from the nipple. This was described on the previous mammography and ultrasound reports. The skin was prepped in the usual manner. Local anesthetic was administered to the access site. A s kin errol was made in the breast. The abnormality was approached from the medial aspect. A 13 gauge biopsy needle was placed adjacent to the abnormality under ultrasound guidance. Once the needle was documented to be in the correct location, five specimens were obtained using the Mammotome biopsy sys tem. A clip insertion was attempted into the biopsy cavity. However, the marker clip did not deploy and no marker clip is present. A sterile dressing was applied to the access site. Post procedure digital mammographic imaging was obtained. The specimens were sent to the laboratory for pathological analys is. IMPRESSION: ULTRASOUND GUIDED BIOPSY MALIGNANT Ultrasound guided biopsy of the 0.8 cm x 0.6 cm x 0.6 cm mass in the right breast at 5 o'clock middle depth 8 cm from the nipple was successful with no apparent post procedure complications. However, th e clip deployment was unsuccessful. Pathology demonstrates invasive ductal carcinoma. Pathology results are concordant with imaging findi ngs. A surgical/oncologic consultation is recommended. This exam was interpreted at Station ID: [id number]. Daniel Escudero M.D. wv,slc/:07/03/2023 13:31:31 BI-RADS CATEGORY: () - Unspecified - other recall n/a LATERALITY: (B)
== END 2023-06-29 09:41 | disposition home or self-care (01) ==
LOC: DI 09:40
PROVIDERS: ATTEND Family Medicine
DX: C50.311 Malignant neoplasm of lower-inner quadrant of right female breast (principal); Z17.0 Estrogen receptor positive status [ER+]
CPT/HCPCS: 19083

== ENCOUNTER 2023-07-26 10:00 | Outpatient (CLI) | payer MEDICAID | END 2023-07-26 23:59 | disposition critical access hospital (66) | LOC: EMS 10:00 | DX: M54.6 Pain in thoracic spine (principal); R11.0 Nausea | CPT/HCPCS: A0425; A0427; A0999 ==

== ENCOUNTER 2023-07-26 10:23 | Emergency (ER) | payer MEDICAID ==
[2023-07-26] MEDS ORDERED: SODIUM CHLORIDE 0.9% 1,000 ML IV STA (11:34)
[2023-07-26] MEDS ORDERED: ENALAPRILAT 1.25 MG/ML VIAL IVP STA (11:36)
[2023-07-26] MEDS ORDERED: HYDROmorphone 1 MG/ML CARPUJECT IVP STA (11:36)
--- NOTE | 2023-07-26 11:41 | ED Physician Documentation ---
History of Present Illness - Stated complaint Stated Complaint: BACK PX - Chief complaint Chief Complaint: Back Pain - Additonal information Additional information: 53-year-old female presents to the emergency department for evaluation of acute low back pain. Reports that the symptoms began 3 days ago when she was getting off of the toilet. She felt a sharp pain in her tailbone region. States she has been taking Tylenol without relief of symptoms. Denies fevers or saddle anesthesia. Past medical history pertinently positive for antiphospholipid syndrome, anticoagulated on Xarelto, previous CVA with some right-sided deficits. Patient was also recently diagnosed with invasive ductal carcinoma not yet receiving chemotherapy but has plans to continue to follow with hematology/oncology upcoming. She does have a history of hypertension for which historically she has had poor control. Patient denies chest pain or shortness of air. No melena or hematochezia. She has been ambulatory. On presentation in the exam room the patient is crying and tearful. She is laying on her right side. She is a fair historian. She does have to be coaxed into providing history and participating in the exam. Review of Systems Constitutional: denies: Fever, Chills Nose: reports: Reviewed and negative Cardiac: reports: Reviewed and negative Respiratory: reports: Reviewed and negative GI: reports: Reviewed and negative : denies: Dysuria, Frequency Skin: denies: Rash Musculoskeletal: reports: Back pain. denies: Extremity pain, Joint pain PD PAST MEDICAL HISTORY - Past Medical History Cardiovascular: Hypertension Respiratory: None Neuro: CVA GI: Other (Hx of recurrent N/V/D, that she calls Gastroenteritis.) : None HEENT: Glaucoma Psych: Depression Musculoskeletal: Other Derm: None - Past Surgical History Past Surgical History: Yes General: Cholecystectomy Ortho: Other - Present Medications Home Medications: Ambulatory Orders Medication Instructions Recorded Confirmed Cyclobenzaprine HCl 5 mg PO TID 04/24/19 11/11/22 Fluoxetine HCl [Prozac] 40 mg PO DAILY 04/24/19 11/11/22 Gabapentin [Neurontin] 800 mg PO TID 04/24/19 11/11/22 Rivaroxaban [Xarelto] 20 mg PO QDDINNER 05/05/22 11/11/22 Atorvastatin Calcium 40 mg PO HS 11/11/22 11/11/22 Labetalol [Trandate] 700 mg PO TID 11/11/22 11/11/22 Lisinopril [Zestril] 15 mg PO HS 11/11/22 11/11/22 oxyCODONE [Roxicodone] 5 mg PO TID PRN #20 tablet 07/26/23 - Allergies Allergies/Adverse Reactions: Allergies Allergy/AdvReac Type Severity Reaction Status Date / Time amitriptyline Allergy Anaphylaxis Verified 05/05/22 16:05 amlodipine Allergy Rash Verified 05/05/22 16:05 clindamycin Allergy Nausea Verified 05/05/22 16:05 diphenhydramine Allergy Anaphylaxis Verified 05/05/22 16:05 [From Benadryl] hydralazine Allergy Hallucinati Verified 05/05/22 16:05 ons hydrochlorothiazide Allergy Anaphylaxis Verified 05/05/22 16:05 Penicillins Allergy Anaphylaxis Verified 05/05/22 16:05 lisinopril AdvReac Mild Unknown Verified 11/12/22 09:52 - Social History Does the pt smoke?: No Smoking Status: Former smoker Does the pt drink ETOH?: No Does the pt have substance abuse?: No - Immunizations Immunizations are current?: Yes - POLST Patient has POLST: No POLST Status: Full Code PD ED PE EXPANDED - General General: Alert, Disheveled, poorly kept, Anxious, In Pain - Cardiac Cardiac: Regular Rate, Radial strong equal, Pedal strong equal, Cap refill < 2 sec - Respiratory Respiratory: Clear to ausultation siobhan. No: Distress, Labored - Abdomen Abdomen: Normal Bowel sounds. No: Tender to palpation - Back Back: Vertebral tenderness, Other (MS 5/5 left leg at hip, knee and ankle. MS 4/5 right leg at ankle (baseline)). No: Soft tissue tenderness (No midline tenderness elicited with palpation of the cervical or thoracic spine. Tenderness was elicited with palpation of the lower lumbar and sacral spine without crepitus step-off or deformity. No rash.) - Derm Derm: Normal color, Warm and dry. No: Rash - Extremities Extremities: Normal. No: Deformity, Tenderness - Neuro Neuro: Alert and Oriented X 3, CNII-XII intact - GCS Eye Opening: Spontaneous Motor: Obeys Commands Verbal: Oriented Total: 15 Results - Vitals Vitals: Vital Signs - 24 hr 08/07/26/23 07/26/23 10:37 12:36 14:17 Temperature 98.6 C H Heart Rate 72 59 L 80 Respiratory 20 21 16 Rate Blood Pressure 230/115 H 211/107 H 175/100 H O2 Saturation 100 97 96 07/26/23 07/26/23 07/26/23 14:19 14:38 15:53 Temperature 36.8 C Heart Rate 92 85 88 Respiratory 18 15 20 Rate Blood Pressure 190/90 H 159/90 H 112/87 H O2 Saturation 99 99 Oxygen O2 Source Room air - Labs Labs: Laboratory Tests 07/26/23 07/26/23 07/26/23 11:41 11:41 13:50 WBC 18.6 H RBC 5.18 Hgb 15.2 Hct 45.2 MCV 87.3 MCH 29.3 MCHC 33.6 RDW 13.6 Plt Count 368 MPV 9.7 Neut # (Auto) 14.8 H Lymph # (Auto) 2.8 Meade # (Auto) 0.7 Eos # (Auto) 0.1 Baso # (Auto) 0.1 Absolute Nucleated RBC 0.00 Nucleated RBC % 0.0 Sodium 140 Potassium 3.8 Chloride 109 Carbon Dioxide 27 Anion Gap 4.0 L BUN 26 H Creatinine 1.0 Estimated GFR (MDRD) 58 L Glucose 186 H Calcium 10.2 Total Bilirubin 0.8 AST 24 ALT 26 Alkaline Phosphatase 162 H Total Protein 8.4 Albumin 5.1 Globulin 3.3 Albumin/Globulin Ratio 1.5 Lipase 71 Urine Color YELLOW Urine Clarity CLEAR Urine pH 7.0 Ur Specific [place] 1.025 Urine Protein >=300 H Urine Glucose (UA) 100 H Urine Ketones NEGATIVE Urine Occult Blood MODERATE H Urine Nitrite NEGATIVE Urine Bilirubin NEGATIVE Urine Urobilinogen 0.2 (NORMAL) Ur Leukocyte Esterase NEGATIVE Urine RBC 0-5 Urine WBC 0-3 Ur Squamous Epith Cells FEW Squamous Urine Bacteria Few Ur Microscopic Review INDICATED Urine Culture Comments NOT INDICATED - Rads (name of study) cxr Relevant Findings:: Final report received (no acute cardiopulmonary process) Ct abd Relevant Findings:: Final report received (No evidence of metastatic disease in the abdomen and pelvis. Lumbar degenerative changes severe canal stenosis at L3-L4. No acute abdominal process. Fat-containing inguinal hernia. Remote cholecystectomy.) PD Medical Decision Making - ED course Complexity details: reviewed results, re-evaluated patient, considered differential, d/w patient ED course: 53-year-old female presents emergency department for evaluation of acute low back pain that began 4 days ago when she was standing up from the toilet. Reported sharp and nonradiating pain in the low back. No fevers, saddle anesthesia, loss of bowel or bladder function. However the patient does have a history of recently being diagnosed with breast cancer, history of anticoagulati on on Xarelto secondary to clotting disorder as well as previous CVAs. On presentation the emergency department pain was elicited in the low lumbar sacral area with palpation but no crepitus step-off or deformity. Motor movement was preserved. She was able to ambulate in the room. I initially gave her an IV with a milligram of Dilaudid which markedly improved her pain but given the recent history with cancer imaging was indicated. I did obtain CBC, electrolytes and urinalysis. Per my interpretation she does have a leukocytosis white count of 18.6 thousand. Normal hemoglobin. Chemistry reveals some likely mild dehydration with a BUN of 26 but normal creatinine. Urinalysis showed some blood but no other secondary findings of infection. As such I suspect that the leukocytosis is stress marginalization. A chest x-ray did not reveal any focal infiltrates. Subsequently a CT of the abdomen was completed and is interpreted by the radiologist showed no evidence of metastatic disease though she does have severe lumbar degenerative changes with canal stenosis at L3-L4. Patient was noted to present here to the ER with modest hypertension with initial systolic blood pressure of 230. She had admitted that she did not take her lisinopril this AM. Initially administered her dose of hydralazine followed by her daily dose of lisinopril and over time here in the emergency department her blood pressures normalized. I reevaluated the patient at the bedside her pain was markedly improved. I advise close follow-up with PCP. She may benefit from physical therapy and outpatient MRI imaging. Limited prescription of oxycodone will be sent to the pharmacy. The usual emergent return precautions for failure symptoms to resolve or worsen was discussed. Departure - Departure Disposition: 01 Home, Self Care Clinical Impression: Lumbar degenerative disc disease, History of breast cancer, Anticoagulated, Pain Lumbar canal stenosis Qualifiers: Neurogenic claudication status: without neurogenic claudication Qualified Code( s): M48.061 - Spinal stenosis, lumbar region without neurogenic claudication Low back pain Qualifiers: Chronicity: acute Back pain laterality: midline Sciatica presence: without sciatica Qualified Code(s): M54.50 - Low back pain, unspecified Condition: Stable Follow-Up: Louis Hinds MD [Primary Care Provider] - Prescriptions: oxyCODONE [Roxicodone] 5 mg PO TID PRN #20 tablet PRN Reason: Pain Comments: You are seen today in the emergency department for pain in your low back. You do have a history of anticoagulation as well as current breast cancer. We did do a CT of the abdomen to make sure that there was no evidence of metastatic disease to the bones causing your pain. The CT shows that you have fairly significant arthritis or degenerative changes within the lumbar spine. Please discuss this finding with Dr. Martinez. You should be referred to physical therapy and they can consider outpatient MRI imaging of the lumbar spine. In general you can take Tylenol. I do recommend Salonpas lidocaine patches which you may find helpful for the back. For more severe pain a limited prescription of oxycodone has been sent to the [facility] in [place]. Continue follow-up with your oncologist. Return to the ER if you develop any new or worsening symptoms, have loss of control of bowel or bladder function or numbness in your genital area. Discharge Date/Time: 07/26/23 15:53
[2023-07-26 11:56] LABS: BASOPHILS # (AUTO) 0.1 10^3/uL (0.0-0.1); BASOPHILS % (AUTO) 0.6 %; EOSINOPHILS # (AUTO) 0.1 10^3/uL (0.0-0.7); EOSINOPHILS % (AUTO) 0.6 %; HCT - HEMATOCRIT 45.2 % (37.0-47.0); HGB - HEMOGLOBIN 15.2 g/dL (12.0-16.0); LYMPHOCYTES # (AUTO) 2.8 10^3/uL (1.5-3.5); LYMPHOCYTES % (AUTO) 15.2 %; MEAN CORPUSCULAR HEMOGLOBIN 29.3 pg (27.0-31.0); MEAN CORPUSCULAR HGB CONC 33.6 g/dL (32.0-36.0); MEAN CORPUSCULAR VOLUME 87.3 fL (81.0-99.0); MEAN PLATELET VOLUME 9.7 fL (7.9-10.8); MONOCYTES # (AUTO) 0.7 10^3/uL (0.0-1.0); MONOCYTES % (AUTO) 3.8 %; NEUTROPHILS # (AUTO) 14.8 10^3/uL (1.5-6.6); NEUTROPHILS % (AUTO) 79.5 %; PLT - PLATELET COUNT 368 10^3/uL (130-450); RED BLOOD COUNT 5.18 10^6/uL (4.20-5.40); RED CELL DISTRIBUTION WIDTH 13.6 % (12.0-15.0); WHITE BLOOD COUNT 18.6 x10^3/uL (4.8-10.8)
[2023-07-26 12:14] LABS: ALBUMIN 5.1 g/dL (3.2-5.5); ALBUMIN/GLOBULIN RATIO 1.5 (1.0-2.2); BILIRUBIN,TOTAL 0.8 mg/dL (0.2-1.0); CALCIUM 10.2 mg/dL (8.5-10.3); POTASSIUM 3.8 mmol/L (3.5-4.5); TOTAL PROTEIN 8.4 g/dL (6.4-8.9)
--- NOTE | 2023-07-26 12:22 | XRAY Report ---
PROCEDURE: Chest 1 View X-Ray INDICATIONS: chest pain TECHNIQUE: One view of the chest was acquired. COMPARISON: 11/14/2022. FINDINGS: Surgical changes and devices: Left chest Port-A-Cath, cholecystectomy clips. Lungs and pleura: No pleural effusions or pneumothorax. Lungs are clear. Mediastinum: Mediastinal contours appear normal. Heart size is normal. Bones and chest wall: No suspicious bony lesions. Overlying soft tissues appear unremarkable. IMPRESSION: No acute cardiopulmonary process. Reviewed by: Macario Jolly MD on 07/26/2023 12:21 PM PDT Approved by: Macario Jolly MD on 07/26/2023 12:21 PM PDT Station ID: [id number]
[2023-07-26] MEDS ORDERED: lisinopriL 5 MG TABLET PO STA (12:40)
[2023-07-26 14:03] LABS: BILIRUBIN,URINE NEGATIVE (NEGATIVE); CLARITY,URINE CLEAR (CLEAR); GLUCOSE, URINE (UA) 100 mg/dL (NEGATIVE); KETONES,URINE (UA) NEGATIVE (NEGATIVE); LEUKOCYTE ESTERASE, URINE NEGATIVE (NEGATIVE); NITRITE,URINE NEGATIVE (NEGATIVE); OCCULT BLOOD,URINE MODERATE (NEGATIVE); PROTEIN,URINE >=300 mg/dL (NEGATIVE); UROBILINOGEN,URINE 0.2 (NORMAL) E.U./dL (NORMAL)
[2023-07-26 14:24] LABS: BACTERIA,URINE Few /HPF (None Seen); RBC,URINE 0-5 /HPF (0-5); SQUAMOUS EPITHELIAL CELL,UR FEW Squamous (<= Few); WBC,URINE 0-3 /HPF (0-5)
--- NOTE | 2023-07-26 15:14 | CT Report ---
PROCEDURE: ABDOMEN/PELVIS W INDICATIONS: low back pain; breast cancer; ? mets CONTRAST: Omni 300 100ml TECHNIQUE: After the administration of intravenous contrast, 5 mm thick sections acquired from the diaphragms to the symphysis. 5 mm thick coronal and sagittal reformats were acquired. For radiation dose reducti on, the following was used: automated exposure control, adjustment of mA and/or kV according to monisha ent size. COMPARISON: CT abdomen and pelvis without contrast dated 11/10/2022 FINDINGS: Image quality: Excellent. Lung bases and heart: Unremarkable. Liver: No solid mass. Gallbladder and biliary tree: Surgically absent. No biliary dilation, accounting for post-cholecystec gabino state. Spleen: No splenomegaly. Pancreas: No pancreatic ductal dilation. Adrenals: No adrenal nodule. Kidneys and ureters: No hydronephrosis. No renal cystic lesion which requires follow up. No solid mas s. Bowel and peritoneum: No bowel distension. No pathologic free fluid. Lymph nodes: No central or retroperitoneal adenopathy. Vessels: No infrarenal aortic aneurysm. PELVIS Reproductive organs: Unremarkable. Bladder: No abnormal wall thickening, accounting for underdistension. Pelvic lymph nodes: No pelvic adenopathy by size criteria. Bones: No lytic or blastic bony lesions. Lumbar degenerative change. Severe canal stenosis at L3-L4. Other: Fat-containing left inguinal hernia. IMPRESSION: 1. No evidence of metastatic disease in the abdomen and pelvis. 2. Lumbar degenerative change with severe canal stenosis at L3-L4. 3. No acute abdominal process. 4. Fat-containing left inguinal hernia. 5. Remote cholecystectomy. Reviewed by: Macario Jolly MD on 07/26/2023 3:12 PM PDT Approved by: Macario Jolly MD on 07/26/2023 3:12 PM PDT Station ID: [id number]
[2023-07-26] MEDS ORDERED: iohexoL-300 100 ML VIAL IVP ONE (19:53)
[2023-07-27 10:56] VITALS: BP 112/87; O2SAT 99
== END 2023-07-26 15:53 | disposition home or self-care (01) ==
LOC: EDUNIT# → ED 10:23
DX: M51.36 Other intervertebral disc degeneration, lumbar region (principal); M48.061 Spinal stenosis, lumbar region without neurogenic claudication; C50.919 Malignant neoplasm of unspecified site of unspecified female breast; I69.30 Unspecified sequelae of cerebral infarction; I10 Essential (primary) hypertension; Z79.01 Long term (current) use of anticoagulants; Z79.899 Other long term (current) drug therapy; Z87.891 Personal history of nicotine dependence
CPT/HCPCS: 36415; 71045; 74177; 80053; 81001; 83690; 85025; 96361; 96374; 99284; A9270; J1170; Q9967; 81003; 87086

== ENCOUNTER 2023-09-18 07:06 | Day surgery (SDC) | payer MEDICAID ==
[~2023-09-18 07:06] MED LIST: ACETAMINOPHEN 500 MG TABLET PO ONE; ceFAZolin 2 GM VIAL ONE
[2023-09-18] MEDS ORDERED: ALPRAZolam 0.25 MG TABLET PO ONE (07:33)
[2023-09-18 07:43] VITALS: BP 129/97; O2SAT 97
--- NOTE | 2023-09-18 08:03 | ANESTHESIA ---
Pre-Anesthesia VS, & Labs - Diagnosis right breast ductal cancer - Procedure right needle localizaton, lumpectomy, sentinel node biopsy Vital Signs: Temp Pulse Resp BP Pulse Ox O2 Flow Rate 36.5 C 75 16 129/97 H 97 0 09/18/23 07:38 09/18/23 07:38 09/18/23 07:38 09/18/23 07:38 09/18/23 07:38 09/18/23 07:38 Height: 5 ft 3 in Weight (kg): 80.6 kg Body Mass Index: 31.4 BMI Classification: Obese - NPO >8 hours - Is Patient ?: No Home Medications and Allergies Home Medications: Ambulatory Orders Furosemide [Lasix] 20 mg PO DAILY 09/11/23 LORazepam [Ativan] 0.5 mg PO BID PRN 09/11/23 Cyclobenzaprine HCl 5 mg PO TID 04/24/19 Fluoxetine HCl [Prozac] 40 mg PO DAILY 04/24/19 Gabapentin [Neurontin] 800 mg PO TID 04/24/19 Rivaroxaban [Xarelto] 20 mg PO QDDINNER 05/05/22 Atorvastatin Calcium 40 mg PO HS 11/11/22 Labetalol [Trandate] 700 mg PO TID 11/11/22 Lisinopril [Zestril] 30 mg PO HS 11/11/22 Ondansetron [Zuplenz] 4 mg PO PRN PRN 08/04/23 Furosemide [Lasix] 20 mg PO DAILY 09/11/23 LORazepam [Ativan] 0.5 mg PO BID PRN 09/11/23 Allergies/Adverse Reactions: Allergies Allergy/AdvReac Type Severity Reaction Status Date / Time amitriptyline Allergy Anaphylaxis Verified 08/04/23 12:48 amlodipine Allergy Rash Verified 08/04/23 12:48 clindamycin Allergy Nausea Verified 08/04/23 12:48 diphenhydramine Allergy Anaphylaxis Verified 08/04/23 12:48 [From Benadryl] hydralazine Allergy Hallucinati Verified 08/04/23 12:48 ons hydrochlorothiazide Allergy Anaphylaxis Verified 08/04/23 12:48 Penicillins Allergy Anaphylaxis Verified 08/04/23 12:48 prednisone Allergy Unknown Verified 09/11/23 09:33 zelda Allergy Unknown Uncoded 09/11/23 09:33 novacaine Allergy Unknown Uncoded 09/11/23 09:33 Anes History & Medical History - Anesthetic History Anesthesia Complications: reports: No previous complications - Medical History Cardiovascular: reports: Hypertension, High cholesterol, Valve disorder (mild atrial regurgitation, mild LVH, EF 60% per 2021 Echo) Pulmonary: reports: None Gastrointestinal: reports: Chronic diarrhea Urinary: reports: None Neuro: reports: CVA Musculoskeletal: reports: Osteoarthritis, Other Endocrine/Autoimmune: reports: None Blood Disorders: reports: None Skin: reports: None Smoking Status: Former smoker History of Cancer?: Yes - Surgical History General: reports: Cholecystectomy, Colonoscopy, EGD Gynecologic: reports: Dilation and currettage, Tubal ligation Orthopedic: reports: Spine surgery, Other Exam General: Alert, Oriented x3 Dental: Dentures full Upper Mouth Opening: Greater than 4 Fingerbreadths Neck Mobility: Normal Mallampati classification: II Thyromental Distance: greater than 6 cm Respiratory: Lungs clear Cardiovascular: Regular rate, Normal S1, Normal S2 Plan Anesthesia Type: General Consent for Procedure(s) Verified and Reviewed: Yes Code Status: Attempt Resuscitation ASA classification: 3-Severe systemic disease Is this case an emergency?: No
[2023-09-18] MEDS ORDERED: ONDANSETRON 4 MG/2 ML VIAL IVP PRN (08:06)
[2023-09-18] MEDS ORDERED: ePHEDrine 50 MG/ML VIAL IVP PRN (08:06)
[2023-09-18] MEDS ORDERED: NALOXONE 0.4 MG/ML VIAL IVP PRN (08:06)
[2023-09-18] MEDS ORDERED: fentaNYL 100 MCG/2 ML VIAL IVP PRN (08:06)
[2023-09-18] MEDS ORDERED: HYDROmorphone 0.5 MG/0.5 ML SYRINGE IVP PRN (08:06)
[2023-09-18] MEDS ORDERED: ATROPINE ABBOJECT 1 MG/10 ML SYRINGE IVP PRN (08:06)
[2023-09-18] MEDS ORDERED: MORPHINE 2 MG/ML CARPUJECT IVP PRN (08:06)
[2023-09-18] MEDS ORDERED: METOCLOPRAMIDE 10 MG/2 ML VIAL IVP PRN (08:06)
[2023-09-18] MEDS ORDERED: LIDOCAINE-MPF 1% 5 ML VIAL ONE (08:30)
[2023-09-18] MEDS ORDERED: BUPIVACAINE 0.5% PF 10 ML VIAL ONE (08:39)
[2023-09-18] MEDS ORDERED: LIDOCAINE 1%-EPI 1:100000 20 ML MDV ONE (08:39)
[2023-09-18] MEDS ORDERED: LACTATED RINGERS 1,000 ML IV SCH (09:00)
[2023-09-18] MEDS ORDERED: fentaNYL 100 MCG/2 ML VIAL ONE (09:06)
[2023-09-18] MEDS ORDERED: PROPOFOL 500 MG/50 ML 0 MG/0 ML VIAL ONE (09:06)
== END 2023-09-18 07:07 | disposition home or self-care (01) ==
LOC: SDS 07:06
PROVIDERS: ATTEND Surgery
DX: C50.911 Malignant neoplasm of unspecified site of right female breast (principal); Z53.8 Procedure and treatment not carried out for other reasons
CPT/HCPCS: A9270 ×2

== ENCOUNTER 2023-09-20 09:26 | Day surgery (SDC) | payer MEDICAID ==
[2023-09-20] MEDS ORDERED: LACTATED RINGERS 1,000 ML IV ONE ×3 (09:35→16:25)
--- NOTE | 2023-09-20 09:52 | ANESTHESIA ---
Pre-Anesthesia VS, & Labs - Diagnosis right breast ductal CA - Procedure needle localization breast lumpectomy, right Vital Signs: Temp Pulse Resp BP Pulse Ox O2 Flow Rate 36.1 C L 72 16 136/89 H 95 09/20/23 09:40 09/20/23 09:40 09/20/23 09:40 09/20/23 09:40 09/20/23 09:40 Height: 5 ft 3 in Weight (kg): 81.6 kg Body Mass Index: 31.8 BMI Classification: Obese - NPO >8 hours - Is Patient ?: No Home Medications and Allergies Cyclobenzaprine HCl 5 mg PO TID 04/24/19 Fluoxetine HCl [Prozac] 40 mg PO DAILY 04/24/19 Gabapentin [Neurontin] 800 mg PO TID 04/24/19 Rivaroxaban [Xarelto] 20 mg PO QDDINNER 05/05/22 Atorvastatin Calcium 40 mg PO HS 11/11/22 Labetalol [Trandate] 700 mg PO TID 11/11/22 Lisinopril [Zestril] 30 mg PO HS 11/11/22 Ondansetron [Zuplenz] 4 mg PO PRN PRN 08/04/23 Furosemide [Lasix] 20 mg PO DAILY 09/11/23 LORazepam [Ativan] 0.5 mg PO BID PRN 09/11/23 Allergies/Adverse Reactions: Allergies Allergy/AdvReac Type Severity Reaction Status Date / Time amitriptyline Allergy Anaphylaxis Verified 08/04/23 12:48 amlodipine Allergy Rash Verified 08/04/23 12:48 clindamycin Allergy Nausea Verified 08/04/23 12:48 diphenhydramine Allergy Anaphylaxis Verified 08/04/23 12:48 [From Benadryl] hydralazine Allergy Hallucinati Verified 08/04/23 12:48 ons hydrochlorothiazide Allergy Anaphylaxis Verified 08/04/23 12:48 Penicillins Allergy Anaphylaxis Verified 08/04/23 12:48 prednisone Allergy Unknown Verified 09/11/23 09:33 zelda Allergy Unknown Uncoded 09/11/23 09:33 novacaine Allergy Unknown Uncoded 09/11/23 09:33 Anes History & Medical History - Anesthetic History Anesthesia Complications: reports: No previous complications - Medical History Cardiovascular: reports: Hypertension, High cholesterol, Valve disorder Pulmonary: reports: None Gastrointestinal: reports: Chronic diarrhea Urinary: reports: None Neuro: reports: CVA Musculoskeletal: reports: Osteoarthritis, Other Endocrine/Autoimmune: reports: None Blood Disorders: reports: None Skin: reports: None Smoking Status: Former smoker History of Cancer?: Yes - Surgical History General: reports: Cholecystectomy, Colonoscopy, EGD Gynecologic: reports: Dilation and currettage, Tubal ligation Orthopedic: reports: Spine surgery, Other Exam General: Alert, Oriented x3, Cooperative Dental: WNL Mouth Opening: Greater than 4 Fingerbreadths Neck Mobility: Normal Mallampati classification: II Respiratory: Lungs clear Cardiovascular: Regular rate Plan Anesthesia Type: General Consent for Procedure(s) Verified and Reviewed: Yes Code Status: Attempt Resuscitation ASA classification: 3-Severe systemic disease Is this case an emergency?: No
[2023-09-20] MEDS ORDERED: NALOXONE 0.4 MG/ML VIAL IVP PRN (09:54)
[2023-09-20] MEDS ORDERED: ePHEDrine 50 MG/ML VIAL IVP PRN (09:54)
[2023-09-20] MEDS ORDERED: fentaNYL 100 MCG/2 ML VIAL IVP PRN (09:54)
[2023-09-20] MEDS ORDERED: ATROPINE ABBOJECT 1 MG/10 ML SYRINGE IVP PRN (09:54)
[2023-09-20] MEDS ORDERED: ONDANSETRON 4 MG/2 ML VIAL IVP PRN ×2 (09:54→15:28)
[2023-09-20] MEDS ORDERED: HYDROmorphone 0.5 MG/0.5 ML SYRINGE IVP PRN ×2 (09:54→15:28)
[2023-09-20] MEDS ORDERED: MORPHINE 2 MG/ML CARPUJECT IVP PRN (09:54)
[2023-09-20] MEDS ORDERED: METOCLOPRAMIDE 10 MG/2 ML VIAL IVP PRN (09:54)
[2023-09-20] MEDS ORDERED: ALPRAZolam 0.25 MG TABLET PO ONE (09:59)
[2023-09-20] MEDS ORDERED: LACTATED RINGERS 1,000 ML IV SCH (10:00)
[2023-09-20] MEDS ORDERED: LIDOCAINE-MPF 1% 5 ML VIAL ONE (10:12)
[2023-09-20] MEDS ORDERED: LIDOCAINE 1%-EPI 1:100000 20 ML MDV ONE (10:45)
[2023-09-20] MEDS ORDERED: BUPIVACAINE 0.5% PF 10 ML VIAL ONE (10:45)
[2023-09-20] MEDS ORDERED: fentaNYL 100 MCG/2 ML VIAL ONE ×2 (11:17→14:56)
[2023-09-20] MEDS ORDERED: MIDAZOLAM 2 MG/2 ML VIAL ONE (11:17)
[2023-09-20] MEDS ORDERED: PROPOFOL 200 MG/20 ML VIAL IVP ONE (11:18)
[2023-09-20] MEDS ORDERED: LIDOCAINE 1%-EPI 1:100000 20 ML MDV SUBQ ONE (13:41)
[2023-09-20] MEDS ORDERED: BUPIVACAINE 0.5% PF 10 ML VIAL IM ONE (13:42)
[2023-09-20] MEDS ORDERED: LIDOCAINE-MPF 1% 5 ML VIAL TD ONE (14:22)
[2023-09-20] MEDS ORDERED: oxyCODONE 5 MG TABLET PO PRN (15:28)
[2023-09-20] MEDS ORDERED: ACETAMINOPHEN 500 MG TABLET PO PRN (15:28)
--- NOTE | 2023-09-20 15:33 | OPERATIVE REPORT ---
Operative Report - General Procedure Date: 09/20/23 Planned Procedure: right wire localized lumpectomy and sentinel lymph node biopsy Pre-Op Diagnosis: invasive ductal carcinoma Procedure Performed: right wire localized lumpectomy and sentinel lymph node biopsy Post Op Diagnosis: invasive ductal carcinoma - Procedure Note Primary Surgeon: Dr. Flower Gallego Anesthesia Provider: Fe Marcos CRNA Anesthesia Technique: General LMA, Local Pathology: 1. right lumpectomy (oriented short superior, long lateral, double deep) 2. reexcision inferior margin (oriented short superior, long lateral, double anterior) 3. SLN #1, 7396 Estimated Blood Loss (mL): 20 Drain/Tube Type: Kenroy Reynoso round drain (right breast) Indications: This is a very pleasant 53-year-old female who went in for her screening mammogram. An area of concern was identified, and biopsy proved invasive ductal carcinoma. She was seen and evaluated in the clinic where we discussed the risks, benefits, and alternatives of lumpectomy versus mastectomy. We discussed the risks of lumpectomy followed by radiation including bleeding, infection, damage to surrounding structures, positive margins requiring reexcision, and the need for further surgery or procedures. The patient voiced understanding, her questions were answered, and she wished to proceed. A consent was signed by the patient prior to surgery. Findings: 1. right lumpectomy (oriented short superior, long lateral, double deep) 2. reexcision inferior margin (oriented short superior, long lateral, double anterior) 3. SLN #1, 7958 Complications: None - Other Other Information/Narrative: The patient was taken to the operating room and placed in the supine position. Preop antibiotics were given. ERAS medications were given. The patient was prepped and draped in the usual sterile fashion. A preop surgical timeout was performed. Attention was turned to the patient's right breast. An incision was made which incorporated the wire, along the medial inframammary crease. Skin flaps were raised superiorly and inferiorly to the incision. The dissection was carried down to the thick part of the wire using electrocautery. At this point, serrated scissors were used to perform a lumpectomy staying approximately 1 cm away from the wire in all dimensions, and traveling along the fascia posteriorly. The lumpectomy specimen was removed and oriented with suture on the back table. The specimen was not sent to mammography as no biopsy clip was present at the time of wire placement. On palpation of the specimen, the inferior margin felt close, so an additional inferior margin was excised, and oriented on the back table. The edges of the lumpectomy cavity were inspected and there were no palpable abnormalities. Hemostasis was confirmed. Given that this patient is on chronic anticoagulation, extra attention was paid to hemostasis. The lumpectomy cavity was irrigated with warm normal saline. Clips were placed in the superior, inferior, medial, lateral, anterior, and posterior margins of the lumpectomy cavity. A 7 [employer] JAMES drain was placed in the lumpectomy cavity due to its size. This was sewn into place using a 3-0 nylon suture. The deep dermal tissues were closed with 3-0 Vicryl in an interrupted fashion. The skin was closed with 4-0 Monocryl in a running subcuticular fashion. Attention was then turned to the right axilla. An incision was made just inferior to the hairline at the area of greatest uptake using the neoprobe device. The incision was made using a 15 blade scalpel and carried down through the skin and subcutaneous tissues to the level of the axillary fascia. The fascia was incised. The sentinel lymph node was identified using the neoprobe. Clips were used proximally and distally to the node prior to removal. The first node had a maximal reading of 7317 on the back table and was noted to soft, large, and fatty. On further inspection, there were no additional lymph nodes that had at least 10% uptake, 731, and there were no additional abnormal palpable nodes. Hemostasis was confirmed in the axilla. The deep dermal tissues were closed with 3-0 Vicryl. A 4-0 Monocryl running stitch was placed in a subcuticular fashion. Skin glue was placed over both incisions. The patient tolerated the procedure well. There were no complications. The patient tolerated the procedure well. There were no complications. Synoptic Breast [facility] - [place] Node Biopsy Operation performed with curative intent: Yes Tracer(s) used to identify sentinel nodes in the upfront surgery (non- neoadjuvant) setting (select all that apply): Radioactive tracer Tracer(s) used to identify sentinel nodes in the neoadjuvant setting (select all that apply): N/A All nodes (colored or non-colored) present at the end of a dye-filled lymphatic channel were removed: N/A All significantly radioactive nodes were removed: Yes All palpably suspicious nodes were removed: N/A Biopsy-proven positive nodes marked with clips prior to chemotherapy were identified and removed: N/A
[2023-09-20] MEDS ORDERED: LABETALOL 20 MG/4 ML SYRINGE IVP ONE (16:03)
[2023-09-20 16:55] VITALS: BP 148/89; O2SAT 96
--- NOTE | 2023-09-20 17:04 | ANESTHESIA POST OP EVALUATION ---
Anesthesia Post Eval - Post Anesthesia Eval Vitals: Last Vital Signs Temp 36.5 C 09/20/23 16:54 Pulse 70 09/20/23 17:02 Resp 18 09/20/23 17:02 BP 148/89 H 09/20/23 17:02 Pulse Ox 96 09/20/23 16:54 O2 Flow Rate CV Function Including HR & BP: Stable (Labatolol given for hypertension), Additional Therapies Ordered Pain Control: Satisfactory (0/10 pain) Nausea & Vomiting: Negative Mental Status: Baseline Respiratory Status: Airway Patent Hydration Status: Satisfactory Anesthesia Complications: None
[2023-09-20] MEDS ORDERED: oxyCODONE 5 MG TABLET ONE (17:05)
--- NOTE | 2023-09-21 10:10 | Mammography Report ---
WIRE LOCALIZATION RIGHT BREAST: 09/20/2023 CLINICAL: Right breast wire localization. Correlation is made to exams dated: 06/29/2023 mammogram, 06/20/2023 mammogram, 10/29/2021 mammogram, an d 05/31/2023 mammogram - [facility]. A wire localization was performed for the 0.7 cm mass located in the right breast at 5 o'clock middle depth. The skin was prepped in the usual manner. A wire was inserted into the targeted area. IMPRESSION: WIRE LOCALIZATION Wire localization for the 0.7 cm mass in the right breast at 5 o'clock middle depth was successful. T he central portion of the thick part of the wire rests approximately 1.3 cm anterior to the center of the mass. These findings were discussed with the surgeon, Dr. Gallego prior to surgery This exam was interpreted at Station ID: [id number]. Lino Bautista M.D. crm/:09/20/2023 14:45:04 BI-RADS CATEGORY: () - Unspecified - other recall n/a LATERALITY: (B)
== END 2023-09-20 09:27 | disposition home or self-care (01) ==
LOC: SDS 09:26
PROVIDERS: ATTEND Surgery
PROC: 07B50ZX Excision of Right Axillary Lymphatic, Open Approach, Diagnostic (ICD-10-PCS; 2023-09-20)
PROC: 0HBT0ZZ Excision of Right Breast, Open Approach (ICD-10-PCS; principal; 2023-09-20 11:30)
DX: C50.311 Malignant neoplasm of lower-inner quadrant of right female breast (principal); Z17.0 Estrogen receptor positive status [ER+]; Z86.73 Personal history of transient ischemic attack (TIA), and cerebral infarction without residual deficits; E66.9 Obesity, unspecified; E78.5 Hyperlipidemia, unspecified; I12.9 Hypertensive chronic kidney disease with stage 1 through stage 4 chronic kidney disease, or unspecified chronic kidney disease; N18.9 Chronic kidney disease, unspecified; Z79.01 Long term (current) use of anticoagulants; Z68.31 Body mass index [BMI] 31.0-31.9, adult; Z87.891 Personal history of nicotine dependence; D68.61 Antiphospholipid syndrome; F32.A Depression, unspecified
CPT/HCPCS: 19281; 19301; 38525; 38900; A9270; J7120

== ENCOUNTER 2024-03-05 08:18 | Day surgery (SDC) | payer MEDICAID ==
[2024-03-05] MEDS: LACTATED RINGERS 1,000 ML IV ONE (08:20)
--- NOTE | 2024-03-05 09:52 | ANESTHESIA ---
Pre-Anesthesia VS, & Labs - Diagnosis hx polyps/ nause/vomiting - Procedure EGD/COLONOSCOPY Vital Signs: Temp Pulse Resp BP Pulse Ox O2 Flow Rate 36.5 C 66 15 188/94 H 97 03/05/24 08:20 03/05/24 08:20 03/05/24 08:20 03/05/24 08:20 03/05/24 08:20 Height: 5 ft 4 in Weight (kg): 85 kg Body Mass Index: 32.1 BMI Classification: Obese - NPO Last Fluid Intake: 0500 Last Food Intake: >8HR - Is Patient ?: No Home Medications and Allergies Cyclobenzaprine HCl 5 mg PO TID 04/24/19 Fluoxetine HCl [Prozac] 40 mg PO DAILY 04/24/19 Gabapentin [Neurontin] 800 mg PO TID 04/24/19 Rivaroxaban [Xarelto] 20 mg PO QDDINNER 05/05/22 Atorvastatin Calcium 40 mg PO HS 11/11/22 Labetalol [Trandate] 700 mg PO TID 11/11/22 Lisinopril [Zestril] 30 mg PO HS 11/11/22 Ondansetron [Zuplenz] 4 mg PO PRN PRN 08/04/23 Furosemide [Lasix] 10 mg PO DAILY 09/11/23 LORazepam [Ativan] 0.5 mg PO BID PRN 09/11/23 Letrozole 1 tab PO DAILY 12/01/23 Allergies/Adverse Reactions: Allergies Allergy/AdvReac Type Severity Reaction Status Date / Time amitriptyline Allergy Anaphylaxis Verified 03/04/24 11:47 amlodipine Allergy Rash Verified 03/04/24 11:47 clindamycin Allergy Nausea Verified 03/04/24 11:47 diphenhydramine Allergy Anaphylaxis Verified 03/04/24 11:47 [From Benadryl] hydralazine Allergy Hallucinati Verified 03/04/24 11:47 ons hydrochlorothiazide Allergy Anaphylaxis Verified 03/04/24 11:47 Penicillins Allergy Anaphylaxis Verified 03/04/24 11:47 prednisone Allergy Unknown Verified 03/04/24 11:47 zelda Allergy Unknown Uncoded 03/04/24 11:47 novacaine Allergy Unknown Uncoded 03/04/24 11:47 Anes History & Medical History - Anesthetic History Anesthesia Complications: reports: No previous complications Family history of Anesthesia Complications: Denies - Medical History Cardiovascular: reports: Hypertension, High cholesterol, Valve disorder Pulmonary: reports: None Gastrointestinal: reports: Chronic diarrhea Urinary: reports: None Neuro: reports: CVA (SOMETIMES R WEAKNESS) Musculoskeletal: reports: Osteoarthritis, Other Endocrine/Autoimmune: reports: None Blood Disorders: reports: None Skin: reports: None Smoking Status: Former smoker (mj DAILY) Psychosocial: reports: Cannabis - Surgical History General: reports: Cholecystectomy, Colonoscopy, EGD Gynecologic: reports: Dilation and currettage, Tubal ligation Orthopedic: reports: Spine surgery, Other Results - EKG Results EKG Comparison: Reviewed EKG (SR) Exam General: Alert Dental: Dentures full Upper (OUT) Mouth Openin Fingerbreadth Neck Mobility: Normal Mallampati classification: II Thyromental Distance: 4-6 cm Respiratory: Rhonchi Plan Anesthesia Type: Total IV Consent for Procedure(s) Verified and Reviewed: Yes Code Status: Attempt Resuscitation ASA classification: 3-Severe systemic disease Is this case an emergency?: No
[2024-03-05] MEDS: LACTATED RINGERS 400 ML IV ONE (11:08)
--- NOTE | 2024-03-05 11:23 | ANESTHESIA POST OP EVALUATION ---
Anesthesia Post Eval - Post Anesthesia Eval Vitals: Last Vital Signs Temp 36.0 C L 03/05/24 11:08 Pulse 74 03/05/24 11:20 Resp 16 03/05/24 11:20 BP 100/82 H 03/05/24 11:20 Pulse Ox 97 03/05/24 11:20 O2 Flow Rate CV Function Including HR & BP: Stable Pain Control: Satisfactory Nausea & Vomiting: Negative Mental Status: Baseline Respiratory Status: Airway Patent Hydration Status: Satisfactory Anesthesia Complications: None
[2024-03-05 11:48] VITALS: BP 95/70; O2SAT 94
== END 2024-03-05 08:19 | disposition home or self-care (01) ==
LOC: SDS 08:18
PROVIDERS: ATTEND Surgery
PROC: 0DBL8ZX Excision of Transverse Colon, Via Natural or Artificial Opening Endoscopic, Diagnostic (ICD-10-PCS; 2024-03-05)
PROC: 0DB78ZX Excision of Stomach, Pylorus, Via Natural or Artificial Opening Endoscopic, Diagnostic (ICD-10-PCS; principal; 2024-03-05 09:30)
PROC: 0DBK8ZX Excision of Ascending Colon, Via Natural or Artificial Opening Endoscopic, Diagnostic (ICD-10-PCS; 2024-03-05 09:30)
DX: Z12.11 Encounter for screening for malignant neoplasm of colon (principal); K29.50 Unspecified chronic gastritis without bleeding; D12.2 Benign neoplasm of ascending colon; D12.3 Benign neoplasm of transverse colon; I10 Essential (primary) hypertension; E66.9 Obesity, unspecified; Z68.32 Body mass index [BMI] 32.0-32.9, adult; Z87.891 Personal history of nicotine dependence
CPT/HCPCS: 43239; 45380; J7120

== ENCOUNTER 2024-03-12 15:53 | Outpatient (CLI) | payer MEDICAID ==
[2024-03-12 16:13] LABS: BASOPHILS # (AUTO) 0.1 10^3/uL (0.0-0.1); BASOPHILS % (AUTO) 0.7 %; EOSINOPHILS # (AUTO) 0.2 10^3/uL (0.0-0.7); HCT - HEMATOCRIT 38.4 % (37.0-47.0); HGB - HEMOGLOBIN 12.5 g/dL (12.0-16.0); LYMPHOCYTES # (AUTO) 2.7 10^3/uL (1.5-3.5); LYMPHOCYTES % (AUTO) 21.7 %; MEAN CORPUSCULAR HGB CONC 32.6 g/dL (32.0-36.0); MEAN CORPUSCULAR VOLUME 89.1 fL (81.0-99.0); MEAN PLATELET VOLUME 9.9 fL (7.9-10.8); MONOCYTES # (AUTO) 0.9 10^3/uL (0.0-1.0); MONOCYTES % (AUTO) 7.6 %; NEUTROPHILS # (AUTO) 8.3 10^3/uL (1.5-6.6); NEUTROPHILS % (AUTO) 67.6 %; PLT - PLATELET COUNT 344 10^3/uL (130-450); RED BLOOD COUNT 4.31 10^6/uL (4.20-5.40); RED CELL DISTRIBUTION WIDTH 13.5 % (12.0-15.0); WHITE BLOOD COUNT 12.3 x10^3/uL (4.8-10.8)
[2024-03-12 17:00] LABS: THYROID STIMULATING HORMONE 5.93 uIU/mL (0.34-5.60)
[2024-03-12 17:11] LABS: CHOL/HDL RATIO 6.2 (<4.4); CHOLESTEROL 173 mg/dL; HDL CHOLESTEROL 28 mg/dL; TRIGLYCERIDES 498 mg/dL (48-352)
[2024-03-12 19:16] LABS: LDL CHOLESTEROL,DIRECT 89 mg/dL (75-193); LDLD/HDL RATIO 3.2 (<4.4)
[2024-03-12 21:41] LABS: ESTIMATED AVERAGE GLUCOSE 123 mg/dL (70-100); HEMOGLOBIN A1c% 5.9 % (4.27-6.07)
== END 2024-03-12 15:54 | disposition home or self-care (01) ==
LOC: LAB 15:53
PROVIDERS: ATTEND Family Medicine
DX: N18.31 Chronic kidney disease, stage 3a (principal); E78.1 Pure hyperglyceridemia; R73.03 Prediabetes; I10 Essential (primary) hypertension; E78.00 Pure hypercholesterolemia, unspecified
CPT/HCPCS: 36415; 80061; 83036; 83721; 84439; 84443; 85025